=== PATIENT | male | born 1935 | race Hispanic/Latino ===

== ENCOUNTER 2018-03-29 06:50 | Day surgery (SDC) | payer MEDICARE ==
[2017-07-19 09:20] VITALS: BMI 27.3
[2018-03-29 07:56] LABS: BASO # 0.05 K/mm3 (0.0-2.0); BASO % 0.8 % (0.0-3.0); EOS # 0.4 (0.0-0.7); EOS % 7.2 % (1.5-5.0); GRAN # 3.6 (1.4-6.5); GRAN % 60.1 % (50.0-68.0); HEMOGLOBIN 11.7 g/dL (14.0-18.0); LYMPH # 1.4 (1.2-3.4); LYMPH % 22.9 % (22.0-35.0); MEAN CELL VOLUME 89.4 fl (80.0-105.0); MEAN CORPUSCULAR HGB CONC 34.7 g/dl (31.0-37.0); MEAN PLATELET VOLUME 9.7 fl (7.0-11.0); MONO # 0.5 (0.1-0.6); RBC 3.77 10^6/uL (3.5-6.1); RED CELL DISTRIBUTION WIDTH 12.9 % (11.5-14.5)
[2018-03-29 08:09] LABS: BLOOD UREA NITROGEN 17 mg/dL (7-21); CALCIUM 9.5 mg/dL (8.4-10.5); GFR AFRICAN-AMERICAN > 60; GFR NON-AFRICAN AMERICAN > 60
[2018-03-29 08:21] LABS: INR 1.16 (0.93-1.08); PARTIAL THROMBOPLASTIN TIME 27.9 Seconds (25.1-36.5); PROTHROMBIN TIME 13.4 SECONDS (9.4-12.5)
[2018-03-29] MEDS ORDERED: Midazolam 2 MG/2 ML VIAL ONE (09:06)
[2018-03-29] MEDS ORDERED: Lidocaine 1% Inj (20ml) ONE (09:06)
[2018-03-29] MEDS ORDERED: Oxycodone/Acetaminophen 5/325 mg Tab PO PRN (09:45)
[2018-03-29] MEDS ORDERED: Sodium Chloride 0.45% 1,000 ML IV SCH (09:45)
[2018-03-29 10:36] VITALS: BP 127/56; PULSE 53; RESP 18; TEMP 98; O2SAT 97
--- NOTE | 2018-03-29 17:45 | CT ---
PROCEDURE: CT guided liver biopsy. HISTORY: Lung carcinoma. Previous left renal cell carcinoma resection. Numerous bilateral liver lesions. Evaluate for malignancy. PHYSICIAN(S): Daniel Hemran MD. TECHNIQUE: The relative risks and indications of the procedure were explained to the patient and consent obtained. The patient was placed supine on the CT scanner and preliminary images through the liver obtained. Conscious sedation and monitoring were provided throughout the procedure by a nurse. There are multiple small christal seen low-attenuation masses in both lobes liver.. A right lateral approach was selected and the area prepped and draped in the usual sterile fashion. 1% Xylocaine was used to anesthetize the skin and soft tissues. A 17-gauge guiding needle was advanced into the medial segment of the left lobe of the liver.. Its position was confirmed with CT. Using coaxial technique, multiple core biopsies were obtained. The postprocedure images show no evidence of significant hemorrhage. IMPRESSION: 1. CT-guided liver biopsy as described above.
== END 2018-03-29 13:00 | disposition home or self-care (01) ==
LOC: SDS 06:50
PROVIDERS: ATTEND Radiology Vascular & Interventional Radiology
DX: C78.7 Secondary malignant neoplasm of liver and intrahepatic bile duct (principal); C34.90 Malignant neoplasm of unspecified part of unspecified bronchus or lung; Z85.528 Personal history of other malignant neoplasm of kidney; Z90.5 Acquired absence of kidney
CPT/HCPCS: 36415; 47000; 77012; 80048; 85025; 85610; 85730; 88307; 99152; J2250; J2405; J3010; J7030

== ENCOUNTER 2018-07-23 14:42 | Inpatient (IN) | payer MEDICARE ==
[2018-07-23 14:42] VITALS: BMI 27.3
[2018-07-23] MEDS ORDERED: Sodium Chloride 0.9% 1,000 ML IV STA (15:21)
--- NOTE | 2018-07-23 15:21 | ED PDOC ---
Arrival/HPI - General Chief Complaint: GI Problem Time Seen by Provider: 07/23/18 15:04 Historian: Patient - History of Present Illness Narrative History of Present Illness (Text): 07/23/18 15:16 82 year old male, whose past medical history includes lung cancer (currently undergoing chemoradiation), who presents to the Emergency Department complaining of decreased appetite and diarrhea every hour x 5 days. Patient states he rec eived a higher dosage chemotherapy 5 days ago through his oncologist Dr. Zeng. Patient reports having mild abdominal pain "before I have to go to bathroom" than it improved after diarrhea. He denies bloody stools. Reports feeling "shaky" at times this morning. Denies chest pain or shortness of breath. Denies pleuritic pain. Denies hemoptysis. Denies dysuria or frequency. Denies any recent antibiotic usage. Time/Duration: < week Symptom Onset: Gradual Symptom Course: Unchanged Activities at Onset: Light Context: Home Past Medical History - Provider Review Nursing Documentation Reviewed: Yes - Cardiac Hx Hypertension: Yes Hx Pacemaker: No - Pulmonary Hx Respiratory Disorders: Yes - Neurological Hx Neurological Disorder: No - HEENT Hx Cataracts: Yes (BILAT IOLI) - Renal Other/Comment: RENAL TUMOR LEFT - Endocrine/Metabolic Hx Endocrine Disorders: No - Hematological/Oncological Hx Cancer: Yes (Kidney and lung) Hx Chemotherapy: Yes - Integumentary Hx Dermatological Disorder: No - Musculoskeletal/Rheumatological Hx Musculoskeletal Disorders: No - Gastrointestinal Hx Gastrointestinal Disorders: Yes Hx Gall Bladder Disease: Yes Other/Comment: SMALL BOWEL OBSTRUCTION/NO SURGERY NEEDED - Genitourinary/Gynecological Hx Genitourinary Disorders: Yes Hx Prostate Problems: Yes (BPH) - Psychiatric Hx Emotional Abuse: No Hx Physical Abuse: No Hx Substance Use: No - Surgical History Other/Comment: Left leg Sx. Left kidney tumor removal - Anesthesia Hx Anesthesia Reactions: No Hx Malignant Hyperthermia: No - Suicidal Assessment Feels Threatened In Home Enviroment: No Family/Social History - Physician Review Nursing Documentation Reviewed: Yes Family/Social History: Unknown Family HX Smoking Status: Never Smoked Hx Alcohol Use: Yes (GLASS OF RED WINE WITH DINNER) Hx Substance Use: No Allergies/Home Meds Allergies/Adverse Reactions: Allergies No Known Allergies Allergy (Verified 07/23/18 14:56) Home Medications: Home Meds Medication Instructions Recorded Confirmed Furosemide [Lasix] 20 mg PO DAILY 07/19/17 07/23/18 Labetalol [Trandate] 100 mg PO BID 07/19/17 07/23/18 Simvastatin 10 tab PO HS 07/19/17 07/23/18 Tamsulosin HCl [Flomax] 0.4 mg PO DAILY 07/19/17 07/23/18 Timolol 0.5% Ophth [Timoptic 0.5% 1 drop OU DAILY 07/19/17 07/23/18 Ophth Soln] amLODIPine [Norvasc] 5 mg PO HS 07/19/17 07/23/18 Finasteride 1 mg PO DAILY 01/31/18 07/23/18 [place]-3 Fatty Acids/Fish Oil 1 cap PO BID 01/31/18 07/23/18 [[place] 3 Fish Oil Softgel] hydrALAZINE [Apresoline] 50 mg PO TID 01/31/18 07/23/18 Review of Systems - Review of Systems Constitutional: Fatigue, Other ("shaking") Eyes: absent: Vision Changes ENT: absent: Hearing Changes, Sore Throat, Rhinorrhea Respiratory: absent: SOB Cardiovascular: absent: Chest Pain, Palpitations, Calf Pain, SKEL[place] Gastrointestinal: Abdominal Pain, Diarrhea, Nausea, Appetite Changes. absent: Constipation, Hematochezia, Hematemesis Genitourinary Male: absent: Frequency, Hematuria Musculoskeletal: absent: Back Pain Skin: absent: Rash Neurological: absent: Headache, Dizziness Hemo/Lymphatic: absent: Easy Bleeding Psychiatric: absent: Depression Physical Exam - Physical Exam Narrative Physical Exam (Text): 07/23/18 15:21 Head: Atraumatic. Normocephalic. Eyes: PERRL. EOMI. Conjunctivae are not pale. Sclera anicteric. ENT: Mucous membranes are dry. Oropharynx is clear and symmetric. Neck: Supple. Full ROM. No JVD. No lymphadenopathy. Cardiovascular: Regular rate. Regular rhythm. Pulmonary/Chest: No evidence of respiratory distress. No rhonchit or rales. No accessory muscle usage. Abdominal: Soft and non-distended. Very mild periumbilical pain. No rebound, guarding, or rigidity. No organomegaly. Good bowel sounds. Rectal: no gross bleeding or melena described Back: No CVA tenderness. Extremities: No edema. No cyanosis. No calf tenderness. Skin: Skin is pale. Neurological: Alert, awake, and oriented. No meningeal signs. Motor and sensory exam intact. Psychiatric: Good eye contact. Normal interaction, affect, and behavior. Vital Signs Reviewed: Yes Vital Signs Temp Pulse Resp BP Pulse Ox 07/23/18 14:52 98.5 F 90 18 118/87 97 Temperature: Afebrile Blood Pressure: Normal Pulse: Regular Respiratory Rate: Normal Appearance: Positive for: Well-Appearing, Non-Toxic, Comfortable Pain Distress: Mild Mental Status: Positive for: Alert and Oriented X 3 Medical Decision Making ED Course and Treatment: 07/23/18 15:22 Impression: 82 year old male presents to the Emergency Department complaining of diarrhea, decreased appetite, shaking. Differential Diagnosis included but are not limited to: chemotherapy side effect, colitis, dehydration, sepsis Plan: -- UA -- Labs -- Pepcid -- Sodium Chloride -- Reassess and disposition Progress Notes: Patient's history reviewed with patient and family. Patient recently had adjustment "stronger dose" of chemotherapy 5 days ago and since then has had persistent diarrhea with decreased appetite. No vomiting. No chest pain or shortness of breath. States mild abdominal pain that resolved after bowel movements. Currently he is afebrile in ED. Not hypotensive or tachycardic. IV fluids given. Serial exams reveals NO rebound or guarding. Patient developed shaking while in the ED. Vitals reveal NO fever via rectal temp, no tachycardia or hypotension. Abdomen is soft with no rebound or guarding. Cultures obtained. lactate obtained, unremarkable. Patient on re-exam no longer shaking, is comfortable. UA with WBC ? uti will initiate antibiotics. Case d/w Dr. Zeng, will serve as literacy consultant for patient and patient will be admitted for observation, serial exams. As no significant pain currently will continue serial exams. I reviewed case with oncall physician Dr. Radha Collins, who accepts patient to his service. Family and patient updated with treatment plan. - EKG Interpretation EKG Interpretation (Text): 07/23/18 18:32 EKG at 1545 normal sinus rhythm rate of [address] abnormality, prolonged qt Interpreted by ED Physician: Yes Type: 12 lead EKG - Scribe Statement The provider has reviewed the documentation as recorded by the Scribe Serenity Chapa All medical record entries made by the Scribe were at my direction and personally dictated by me. I have reviewed the chart and agree that the record accurately reflects my personal performance of the history, physical exam, medical decision making, and the department course for this patient. I have also personally directed, reviewed, and agree with the discharge instructions and disposition. Disposition/Present on Arrival - Present on Arrival Any Indicators Present on Arrival: No History of DVT/PE: No History of Uncontrolled Diabetes: No Urinary Catheter: No History of Decub. Ulcer: No History Surgical Site Infection Following: None - Disposition Have Diagnosis and Disposition been Completed?: Yes Diagnosis: Diarrhea, Dehydration, Urinary tract infection Disposition: HOME/ ROUTINE Disposition Time: 18:00 Patient Plan: Admission Condition: FAIR Forms: [employer] (Nepali)
[2018-07-23 15:41] LABS: BASO # 0.01 K/mm3 (0.0-2.0); BASO % 0.5 % (0.0-3.0); EOS # 0.1 (0.0-0.7); EOS % 2.3 % (1.5-5.0); GRAN # 1.56 (1.4-6.5); GRAN % 71.8 % (50.0-68.0); HEMOGLOBIN 9.8 g/dL (14.0-18.0); LYMPH # 0.4 (1.2-3.4); LYMPH % 16.6 % (22.0-35.0); MEAN CELL VOLUME 98.9 fl (80.0-105.0); MEAN CORPUSCULAR HEMOGLOBIN 35.8 pg (25.0-35.0); MEAN CORPUSCULAR HGB CONC 36.2 g/dl (31.0-37.0); MEAN PLATELET VOLUME 10.3 fl (7.0-11.0); MONO # 0.2 (0.1-0.6); MONO % 8.8 % (1.0-6.0); RBC 2.74 10^6/uL (3.5-6.1); RED CELL DISTRIBUTION WIDTH 15.8 % (11.5-14.5)
[2018-07-23 15:46] LABS: ALB/GLOB RATIO 1.1 (1.1-1.8); ALT/SGPT 38 U/L (7-56); AMYLASE 75 U/L (35-125); AST/SGOT 55 U/L (17-59); BLOOD UREA NITROGEN 21 mg/dL (7-21); CALCIUM 8.8 mg/dL (8.4-10.5); GFR NON-AFRICAN AMERICAN > 60; LIPASE 42 U/L (23-300)
[2018-07-23 15:48] LABS: INR 1.18; PARTIAL THROMBOPLASTIN TIME 28.2 Seconds (25.1-36.5); PROTHROMBIN TIME 13.5 SECONDS (9.4-12.5)
[2018-07-23 15:59] LABS: WHITE BLOOD COUNT 2.2 10^3/ul (4.5-11.0)
[2018-07-23 16:48] LABS: VENOUS BLOOD GAS BASE EXCESS 0.1 mmol/L (0.0-2.0); VENOUS BLOOD GAS PO2 120 mm/Hg (30-55); VENOUS BLOOD PH 7.44 (7.32-7.43)
[2018-07-23 17:28] LABS: URINE BILIRUBIN SMALL (NEGATIVE); URINE BLOOD NEGATIVE (NEGATIVE); URINE GLUCOSE (UA) NEGATIVE (NEGATIVE); URINE LEUKOCYTE ESTERASE TRACE Leu/uL (NEGATIVE); URINE PROTEIN 30 mg/dL (<30 mg/dL); URINE UROBILINOGEN 0.2 E.U./dL (<1 E.U./dL)
[2018-07-23 17:29] LABS: URINE APPEARANCE CLEAR (CLEAR); URINE COLOR YELLOW (YELLOW)
[2018-07-23 17:44] LABS: URINE AMORPHOUS SEDIMENT FEW; URINE BACTERIA MANY (NEG); URINE EPITHELIAL CELLS 0 - 2 /hpf (0-5); URINE FINE GRANULAR CAST 0 - 2 /hpf (0-2); URINE RBC 0 - 2 /hpf (0-2)
[2018-07-23] MEDS ORDERED: Sodium Chloride 0.9% 1,000 ML IV SCH (17:45)
[2018-07-23] MEDS ORDERED: cefTRIAXone 1 gm 1 GM/100 ML BAG IVPB STA (17:46)
[2018-07-23] MEDS ORDERED: Bismuth Subsalicylate 262 mg/15 ml Sus (240 ml) PO PRN (19:43)
[2018-07-23] MEDS: Sodium Chloride 0.45% 1,000 ML IV SCH (21:58)
[2018-07-23] MEDS: Cefepime 1gm in NS 100ml 1 GM/100 ML BAG IVPB SCH (22:11)
[2018-07-23] MEDS: metroNIDAZOLE IV 500 mg/100 ml 500 MG/100 ML BAG IVPB SCH (22:11)
--- NOTE | 2018-07-24 05:45 | HP ---
HISTORY OF PRESENT ILLNESS: I was called down to the emergency room to admit this young man to the hospital. He is an 82-year-old white male who has a past medical history that includes lung cancer, currently undergoing chemoradiation with Dr. Zeng. He has a decreased appetite. He had diarrhea for five days. He is on high dose of chemotherapy five days ago and now he is having mild abdominal pain. He does report he has had diarrhea. No blood in the stools, feels shaky at times, no pleuritic pain, no coughing up blood, no shortness of breath despite the recent lung cancer history. He has hypotension. He has had respiratory disorders, bilateral cataracts, renal tumor on the left side, kidney and lung cancer with chemotherapy. He has gallbladder disease, small bowel obstruction. No surgery needed at that time. He has BPH. He has had left leg surgery, left kidney tumor removal. FAMILY HISTORY: Unknown. SOCIAL HISTORY: No smoking. He drinks a glass of wine with dinner. No substance abuse. ALLERGIES: NO KNOWN DRUG ALLERGIES. MEDICATIONS: On Lasix, Trandate, simvastatin, Flomax, Timoptic, Norvasc, finasteride, omega-3 fatty acids, and Apresoline. REVIEW OF SYSTEMS: He is fatigued, shaky. No acute vision or hearing changes. No sore throat or rhinorrhea. No shortness of breath. No chest pain, palpitations, calf pain, or dyspnea on exertion. He does have abdominal pains. He is having diarrhea and also nausea. Appetite changes, appetite. No constipation. No problems urinating. No back pain. No skin rashes or ulcers appreciated. No lightheadedness or dizziness. No easy bleeding. No depression or anxiety. PHYSICAL EXAMINATION: VITAL SIGNS: He has 98.5 temperature, 90 pulse, 18 respiratory rate, 118/87 blood pressure, 97% O2 sat. HEENT: His head is atraumatic and normocephalic. Extraocular muscles are intact. Pupils reactive to light. Mucous membranes are dry. NECK: Supple. No JVD. Good range of motion, no lymphadenopathy palpated. CARDIOPULMONARY: Heart is regular rate. LUNGS: Decreased breath sounds with no wheezes, rhonchi, or rales. ABDOMEN: Soft and nontender with positive bowel sounds. Mild midepigastric tenderness. No guarding, no rebound, no CVA tenderness. He does have bowel sounds. They did a rectal in the emergency room. No gross rectal bleeding or melena. EXTREMITIES: No edema of extremities. He moves all 4 extremities. SKIN: Pale. NEUROLOGIC: Alert and oriented x3. No meningeal signs. Good eye contact. No anxiety or depression. Thyroid midline. No palpable appreciable lymphadenopathy. LABORATORY DATA: He had multiple tests that were done. His urine was positive with many bacteria. We started him on Rocephin in the emergency room. Sodium 139, potassium is 4.2, BUN 21, creatinine 1.1, GFR is greater than 60, sugar is 137. Calcium is 8.8, magnesium 1.9, total bili is 0.9, AST is 55, ALT is 38, alk phos 92, total protein is 7.6, albumin is 4, globulin 3.6. Amylase 75, lipase 42. Blood gas, lactate was 1.2. INR 1.18. White count 2.2 on chemoradiation for cancer, 9.8 hemoglobin, 27.1 hematocrit with 71,000 platelets. ASSESSMENT: Urinary tract infection, diarrhea, shaking chills. PLAN: Stop IV FLUIDS, put him back on his medications, give insulin for his diarrhea, some Kaopectate and maybe some Protonix for his tummy and some oxygen. He will have consults with his oncologist, GI and Infectious Disease. He is here for diarrhea for five days, UTI, history of lung cancer, kidney cancer on chemoradiation. Wesly Collins DO MTDD
[2018-07-24] MEDS: metroNIDAZOLE IV 500 mg/100 ml 500 MG/100 ML BAG IVPB SCH ×3 (06:15→22:12)
[2018-07-24] MEDS: Cefepime 1gm in NS 100ml 1 GM/100 ML BAG IVPB SCH ×3 (06:16→22:12)
[2018-07-24 08:06] LABS: HEMOGLOBIN 8.6 g/dL (14.0-18.0); MEAN CELL VOLUME 99.2 fl (80.0-105.0); MEAN CORPUSCULAR HEMOGLOBIN 35.5 pg (25.0-35.0); MEAN CORPUSCULAR HGB CONC 35.8 g/dl (31.0-37.0); MEAN PLATELET VOLUME 10.4 fl (7.0-11.0); PLATELET COUNT 56 10^3/uL (120.0-450.0); RBC 2.42 10^6/uL (3.5-6.1); RED CELL DISTRIBUTION WIDTH 15.4 % (11.5-14.5)
--- NOTE | 2018-07-24 08:08 | CP.PCM.CON ---
<JasanjanaJose Angel - Last Filed: 07/24/18 09:17> History of Present Illness - History of Present Illness History of Present Illness: PGY-4 GI Fellow Consult Note Pt is an 82 yo WM with Metastatic Lung CA (to bones and liver, on chemo and XRT), BPH, HTN presenting with complaint of diarrhea. He states on 07/19 symtoms started with loose watery brown stools nearly every hour. He reports an associated crampy bilateral lower abdominal pain with bowel movements. He reports symptoms independent of PO intake with frequent nocturnal awakenings. He states that on 07/17 he was apple picking and on 07/18 was his last dose of chemo, which he said his oncologist gave him a "stronger" dose than before. Last XRT was a few weeks ago. He reports some nausea but denies any melena (though stools were dark after trying pepto-bismol), hematochezia, emesis, f/c, recent travel, sick contacts, antibiotic use, change in diet nor eating raw foods. States that he has lost about 10-15 lbs ever since starting chemo with decreased appetite. States he had a Colonscopy about 5 years ago in [place] with some polyps reported and thinks he was told to repeat in 2018. No prior EGD. 12 point ROS negative other than stated above MHx: See above SurgHx: Broken leg repair Meds: Reviewed in [facility] FamHx: Denied h/o GI probs SocHx: Wine with dinner, neg tob/illicits All: NKDA Past Patient History - Past Medical History & Family History Past Medical History?: Yes - Past Social History Smoking Status: Never Smoked - CARDIAC Hx Hypertension: Yes Hx Pacemaker: No - PULMONARY Hx Respiratory Disorders: Yes - NEUROLOGICAL Hx Neurological Disorder: No - HEENT Hx Cataracts: Yes (BILAT IOLI) - RENAL Other/Comment: RENAL TUMOR LEFT - ENDOCRINE/METABOLIC Hx Endocrine Disorders: No - HEMATOLOGICAL/ONCOLOGICAL Hx Cancer: Yes (Kidney and lung) Hx Chemotherapy: Yes - INTEGUMENTARY Hx Dermatological Problems: No - MUSCULOSKELETAL/RHEUMATOLOGICAL Hx Falls: No - GASTROINTESTINAL Hx Gastrointestinal Disorders: Yes Hx Gall Bladder Disease: Yes Other/Comment: SMALL BOWEL OBSTRUCTION/NO SURGERY NEEDED - GENITOURINARY/GYNECOLOGICAL Hx Genitourinary Disorders: Yes Hx Prostate Problems: Yes (BPH) - PSYCHIATRIC Hx Emotional Abuse: No Hx Physical Abuse: No Hx Substance Use: No - SURGICAL HISTORY Other/Comment: Left leg Sx. Left kidney tumor removal - ANESTHESIA Hx Anesthesia Reactions: No Hx Malignant Hyperthermia: No Meds Allergies/Adverse Reactions: Allergies Allergy/AdvReac Type Severity Reaction Status Date / Time No Known Allergies Allergy Verified 07/23/18 14:56 - Medications Medications: Current Medications Amlodipine Besylate (Norvasc) 5 mg PO HS [facility] Last Admin: 07/23/18 21:59 Dose: 5 mg Atorvastatin Calcium (Lipitor) 10 mg PO DIN [facility] Bismuth Subsalicylate (Pepto-Bismol) 262 mg PO Q6H PRN PRN Reason: Diarrhea Furosemide (Lasix) 20 mg PO DAILY [facility] Hydralazine HCl (Apresoline) 50 mg PO TID [facility] Sodium Chloride (Sodium Chloride 0.45%) 1,000 mls @ 60 mls/hr IV .[id number] [facility] Last Admin: 07/23/18 21:58 Dose: 60 mls/hr Metronidazole (Flagyl) 500 mg in 100 mls @ 100 mls/hr IVPB Q8 [facility]; Protocol Stop: 07/31/18 22:01 Last Admin: 07/24/18 06:15 Dose: 100 mls/hr Cefepime HCl (Maxipime 1gm) 1 gm in 100 mls @ 25 mls/hr IVPB Q8 [facility]; Protocol Stop: 08/01/18 22:01 Last Admin: 07/24/18 06:16 Dose: 25 mls/hr Labetalol HCl (Trandate) 100 mg PO BID [facility] Non-Formulary Medication (Finasteride [Finasteride]) 1 mg PO DAILY [facility] Pantoprazole Sodium (Protonix Inj) 40 mg IVP DAILY [facility] Tamsulosin HCl (Flomax) 0.4 mg PO DAILY [facility] Timolol Maleate (Timoptic 0.5% Ophth Soln) 1 drop OU DAILY [facility] Physical Exam - Constitutional Appears: Well, Non-toxic, No Acute Distress - Head Exam Head Exam: ATRAUMATIC, NORMAL INSPECTION - Eye Exam Eye Exam: EOMI, Normal appearance. absent: Conjunctival injection, Scleral icterus - ENT Exam ENT Exam: Mucous Membranes Dry, Normal External Ear Exam. absent: Mucous Membranes Moist - Respiratory Exam Respiratory Exam: Clear to Auscultation Bilateral, NORMAL BREATHING PATTERN. absent: Accessory Muscle Use, Respiratory Distress - Cardiovascular Exam Cardiovascular Exam: REGULAR RHYTHM, RRR. absent: Bradycardia, Tachycardia - GI/Abdominal Exam GI & Abdominal Exam: Normal Bowel Sounds, Soft, Tenderness (mildly ttp in lower quadrants without guarding). absent: Bruit, Diminished Bowel Sounds, Distended, Firm, Guarding, Hernia, Organomegaly, Pulsatile Mass - Rectal Exam Rectal Exam: Deferred - Extremities Exam Extremities exam: Positive for: normal inspection. Negative for: pedal edema - Neurological Exam Neurological exam: Alert, CN II-XII Intact, Oriented x3 - Psychiatric Exam Psychiatric exam: Normal Affect, Normal Mood - Skin Skin Exam: Normal Color, Warm Results - Vital Signs Recent Vital Signs: Last Vital Signs Temp 99.1 F 07/23/18 21:41 Pulse 82 07/23/18 21:59 Resp 20 07/23/18 22:36 BP 147/79 07/23/18 21:59 Pulse Ox 98 07/23/18 21:41 - Labs Result Diagrams: 07/24/18 07:30 07/24/18 07:30 Labs: Laboratory Results - last 24 hr 07/23/18 07/23/18 07/23/18 15:25 15:25 15:25 WBC 2.2 L* D RBC 2.74 L Hgb 9.8 L Hct 27.1 L MCV 98.9 D MCH 35.8 H MCHC 36.2 RDW 15.8 H Plt Count 71 L MPV 10.3 Gran % 71.8 H Lymph % (Auto) 16.6 L [place] % (Auto) 8.8 H Eos % (Auto) 2.3 Baso % (Auto) 0.5 Gran # 1.56 Lymph # (Auto) 0.4 L [place] # (Auto) 0.2 Eos # (Auto) 0.1 Baso # (Auto) 0.01 PT 13.5 H INR 1.18 APTT 28.2 pO2 VBG pH VBG pCO2 VBG HCO3 VBG Total CO2 VBG O2 Sat (Calc) VBG Base Excess VBG Potassium Glucose Lactate FiO2 Sodium 139 Potassium 4.2 Chloride 106 Carbon Dioxide 26 Anion Gap 11 BUN 21 Creatinine 1.1 Est GFR ( Amer) > 60 Est GFR (Non-Af Amer) > 60 Random Glucose 137 H Calcium 8.8 Magnesium 1.9 Total Bilirubin 0.9 AST 55 ALT 38 Alkaline Phosphatase 92 Total Protein 7.6 Albumin 4.0 Globulin 3.6 Albumin/Globulin Ratio 1.1 Amylase 75 Lipase 42 Venous Blood Potassium Urine Color Urine Appearance Urine pH Ur Specific Mcgrann Urine Protein Urine Glucose (UA) Urine Ketones Urine Blood Urine Nitrate Urine Bilirubin Urine Urobilinogen Ur Leukocyte Esterase Urine RBC Urine WBC Ur Epithelial Cells Amorphous Sediment Urine Bacteria Fine Granular Casts Urine Other 07/23/18 07/23/18 16:31 17:13 WBC RBC Hgb Hct MCV MCH MCHC RDW Plt Count MPV Gran % Lymph % (Auto) [place] % (Auto) Eos % (Auto) Baso % (Auto) Gran # Lymph # (Auto) [place] # (Auto) Eos # (Auto) Baso # (Auto) PT INR APTT pO2 120 H VBG pH 7.44 H VBG pCO2 35.0 L VBG HCO3 23.8 VBG Total CO2 24.9 VBG O2 Sat (Calc) 99.5 H VBG Base Excess 0.1 VBG Potassium 3.3 L Glucose 107 Lactate 1.2 FiO2 21.0 Sodium 137.0 Potassium Chloride 111.0 H Carbon Dioxide Anion Gap BUN Creatinine Est GFR ( Amer) Est GFR (Non-Af Amer) Random Glucose Calcium Magnesium Total Bilirubin AST ALT Alkaline Phosphatase Total Protein Albumin Globulin Albumin/Globulin Ratio Amylase Lipase Venous Blood Potassium 3.3 L Urine Color Yellow Urine Appearance Clear Urine pH 6.0 Ur Specific [place] 1.025 Urine Protein 30 H Urine Glucose (UA) Negative Urine Ketones Negative Urine Blood Negative Urine Nitrate Negative Urine Bilirubin Small H Urine Urobilinogen 0.2 Ur Leukocyte Esterase Trace H Urine RBC 0 - 2 Urine WBC 2 - 5 Ur Epithelial Cells 0 - 2 Amorphous Sediment Few Urine Bacteria Many Fine Granular Casts 0 - 2 Urine Other Uyeast Assessment & Plan - Assessment and Plan (Free Text) Assessment: 82 yo WM with Stage IV Lung CA with mets to bone and liver (on chemo and XRT) presenting with diarrhea. # Acute Diarrhea: Onset < 30 days ago. Given immunocompromised status (latest WBC 0.6), of most concern would be infectious causes. ID following and managing Abx. Chemo induced diarrhea also on differential, should r/o infectious causes first. # H/o colon polyps: In 2012 at [place] per patient. Told to repeat CSPY 2018. Plan: - F/u Cdiff, Stool Cx, O&P - ID following, on Cefepime and Metronidazole - F/u BCx, though done after antibiotics started - Supportive care - Can do full liquid diet, ADAT - Would hold off DC until stool studies back given neutropenic status - Outpatient surveillance Colonoscopy Pt seen and examined with Dr. Dickey. Please see attestation for further recs/changes. <Nathen Dickey - Last Filed: 07/24/18 16:22> Meds - Medications Medications: Current Medications Amlodipine Besylate (Norvasc) 5 mg PO HS [facility] Last Admin: 07/23/18 21:59 Dose: 5 mg Atorvastatin Calcium (Lipitor) 10 mg PO DIN [facility] Bismuth Subsalicylate (Pepto-Bismol) 262 mg PO Q6H PRN PRN Reason: Diarrhea Furosemide (Lasix) 20 mg PO DAILY [facility] Last Admin: 07/24/18 10:04 Dose: 20 mg Hydralazine HCl (Apresoline) 50 mg PO TID [facility] Last Admin: 07/24/18 13:31 Dose: 50 mg Sodium Chloride (Sodium Chloride 0.45%) 1,000 mls @ 60 mls/hr IV .[id number] [facility] Last Admin: 07/23/18 21:58 Dose: 60 mls/hr Metronidazole (Flagyl) 500 mg in 100 mls @ 100 mls/hr IVPB Q8 [facility]; Protocol Stop: 07/31/18 22:01 Last Admin: 07/24/18 13:31 Dose: 100 mls/hr Cefepime HCl (Maxipime 1gm) 1 gm in 100 mls @ 25 mls/hr IVPB Q8 [facility]; Protocol Stop: 08/01/18 22:01 Last Admin: 07/24/18 14:32 Dose: 25 mls/hr Labetalol HCl (Trandate) 100 mg PO BID [facility] Last Admin: 07/24/18 10:04 Dose: 100 mg Non-Formulary Medication (Finasteride [Finasteride]) 1 mg PO DAILY [facility] Last Admin: 07/24/18 13:31 Dose: Not Given Pantoprazole Sodium (Protonix Inj) 40 mg IVP DAILY [facility] Last Admin: 07/24/18 10:04 Dose: 40 mg Tamsulosin HCl (Flomax) 0.4 mg PO DAILY [facility] Last Admin: 07/24/18 10:04 Dose: 0.4 mg Timolol Maleate (Timoptic 0.5% Oph Soln) 1 drop OU DAILY [facility] Last Admin: 07/24/18 10:52 Dose: 1 drop Results - Vital Signs Recent Vital Signs: Last Vital Signs Temp 98.5 F 07/24/18 08:10 Pulse 68 07/24/18 13:31 Resp 18 07/24/18 08:10 BP 136/60 07/24/18 13:31 Pulse Ox 98 07/24/18 08:10 - Labs Result Diagrams: 07/24/18 07:30 07/24/18 07:30 Labs: Laboratory Results - last 24 hr 07/23/18 07/23/18 07/24/18 16:31 17:13 07:30 WBC 0.6 L* D RBC 2.42 L Hgb 8.6 L Hct 24.0 L MCV 99.2 MCH 35.5 H MCHC 35.8 RDW 15.4 H Plt Count 56 L MPV 10.4 Gran % 23.3 L Lymph % (Auto) 48.3 H [place] % (Auto) 21.7 H Eos % (Auto) 5.0 Baso % (Auto) 1.7 Gran # 0.14 L Lymph # (Auto) 0.3 L [place] # (Auto) 0.1 Eos # (Auto) 0.0 Baso # (Auto) 0.01 Neutrophils % (Manual) 20 L Band Neutrophils % 8 H Lymphocytes % (Manual) 58 H Monocytes % (Manual) 12 H Basophils % (Manual) 2 H Platelet Evaluation Low pO2 120 H VBG pH 7.44 H VBG pCO2 35.0 L VBG HCO3 23.8 VBG Total CO2 24.9 VBG O2 Sat (Calc) 99.5 H VBG Base Excess 0.1 VBG Potassium 3.3 L Sodium 137.0 Chloride 111.0 H Glucose 107 Lactate 1.2 FiO2 21.0 Potassium Carbon Dioxide Anion Gap BUN Creatinine Est GFR ( Amer) Est GFR (Non-Af Amer) Random Glucose Calcium Total Bilirubin AST ALT Alkaline Phosphatase Total Protein Albumin Globulin Albumin/Globulin Ratio Venous Blood Potassium 3.3 L Urine Color Yellow Urine Appearance Clear Urine pH 6.0 Ur Specific [place]ann 1.025 Urine Protein 30 H Urine Glucose (UA) Negative Urine Ketones Negative Urine Blood Negative Urine Nitrate Negative Urine Bilirubin Small H Urine Urobilinogen 0.2 Ur Leukocyte Esterase Trace H Urine RBC 0 - 2 Urine WBC 2 - 5 Ur Epithelial Cells 0 - 2 Amorphous Sediment Few Urine Bacteria Many Fine Granular Casts 0 - 2 Urine Other [facility]yeast 07/24/18 07:30 WBC RBC Hgb Hct MCV MCH MCHC RDW Plt Count MPV Gran % Lymph % (Auto) [place] % (Auto) Eos % (Auto) Baso % (Auto) Gran # Lymph # (Auto) [place] # (Auto) Eos # (Auto) Baso # (Auto) Neutrophils % (Manual) Band Neutrophils % Lymphocytes % (Manual) Monocytes % (Manual) Basophils % (Manual) Platelet Evaluation pO2 VBG pH VBG pCO2 VBG HCO3 VBG Total CO2 VBG O2 Sat (Calc) VBG Base Excess VBG Potassium Sodium 138 Chloride 106 Glucose Lactate FiO2 Potassium 3.4 L Carbon Dioxide 23 Anion Gap 13 BUN 16 Creatinine 0.9 Est GFR ( Amer) > 60 Est GFR (Non-Af Amer) > 60 Random Glucose 110 Calcium 8.3 L Total Bilirubin 0.9 AST 48 ALT 46 Alkaline Phosphatase 91 Total Protein 6.9 Albumin 3.5 Globulin 3.4 Albumin/Globulin Ratio 1.0 L Venous Blood Potassium Urine Color Urine Appearance Urine pH Ur Specific Mcgrann Urine Protein Urine Glucose (UA) Urine Ketones Urine Blood Urine Nitrate Urine Bilirubin Urine Urobilinogen Ur Leukocyte Esterase Urine RBC Urine WBC Ur Epithelial Cells Amorphous Sediment Urine Bacteria Fine Granular Casts Urine Other Attending/Attestation - Attestation I have personally seen and examined this patient.: Yes I have fully participated in the care of the patient.: Yes I have reviewed all pertinent clinical information: Yes Notes (Text): 07/24/18 16:17 I have seen and examined patient with GI fellow. Agree with above documentation with the following additions. In brief, this is an 82 year old male with history of stage IV lung cancer on chemotherapy, BPH, HTN, who presents to hospital with complaint of progressive diarrhea and fatigue which started 5 days ago. He reports a recent increase in dosage of chemotherapy regimen, being followed by Dr. Zeng. He also describes worsening symptoms following consumption of apples from an orchard. He claims to have watery diarrhea episodes nearly every hour which have caused him to develop severe fatigue. He denies abdominal pain, nausea, vomiting, rectal bleeding, fever/chills. He does report a nearly 10 pound weight loss since beginning chemotherapy along with loss of taste/appetite. He had a colonoscopy 5 years ago which showed "polyps" as per patient. Stage IV lung cancer on chemotherapy BPH HTN Diarrhea, persistent unexplained, possibly chemotherapy induced Neutropenia - Given clinical improvement in hospital, would advance diet slowly as tolerated - Obtain stool studies (culture, c-difficile, giardia, cyclospora, crypto) - Continue with antibiotic therapy/neutropenic precautions as per ID - If patient symptoms persist after 48 hours despite medical management, would consider endoscopic evaluation. Otherwise, will benefit from outpatient surveillance colonoscopy. - Will continue to monitor patient clinical course
[2018-07-24 08:13] LABS: WHITE BLOOD COUNT 0.6 10^3/ul (4.5-11.0)
[2018-07-24 08:15] LABS: ALBUMIN 3.5 g/dL (3.0-4.8); ALT/SGPT 46 U/L (7-56); AST/SGOT 48 U/L (17-59); BLOOD UREA NITROGEN 16 mg/dL (7-21); CALCIUM 8.3 mg/dL (8.4-10.5); GFR NON-AFRICAN AMERICAN > 60
[2018-07-24 08:32] LABS: BASO # 0.01 K/mm3 (0.0-2.0); BASO % 1.7 % (0.0-3.0); GRAN # 0.14 (1.4-6.5); GRAN % 23.3 % (50.0-68.0); LYMPH # 0.3 (1.2-3.4); LYMPH % 48.3 % (22.0-35.0); MONO # 0.1 (0.1-0.6); MONO % 21.7 % (1.0-6.0)
[2018-07-24] MEDS ORDERED: Potassium Chloride 20 mEq ER Tab PO ONE (08:42)
[2018-07-24 09:02] LABS: BAND 8 % (0-2); BASOPHIL 2 % (0.0-1.0); LYMPHOCYTE 58 % (22.0-35.0); MONOCYTE 12 % (1.0-6.0); NEUTROPHIL 20 % (50.0-70.0); PLATELET ESTIMATE LOW (NORMAL)
--- NOTE | 2018-07-24 09:05 | PN ---
DATE: 07/24/2018 SUBJECTIVE: I saw him resting comfortably in bed. He slept fairly well last night. He is in no pain. His diarrhea also let up. MEDICATIONS: He is on IV fluids, Apresoline, finasteride, Flagyl IV., Flomax, Lasix, Lipitor, Maxipime IV, Norvasc, Pepcid, Pepto-Bismol, Protonix, Timoptic and Trandate. PHYSICAL EXAMINATION: VITAL SIGNS: 98.5 temp, 78 pulse, 140/65 blood pressure, 18 respiratory rate, 98% O2 sat on room air. HEENT: His head is atraumatic, normocephalic. He is alert, looking at me, comfortable. Throat is moist. NECK: Supple. HEART: Regular rate. LUNGS: Decreased breath sounds, but clear. ABDOMEN: Soft, nontender. Positive bowel sounds. No guarding, no rebound, no CVA tenderness. EXTREMITIES: Have no edema. He has a urine that showed many bacteria. LABORATORY DATA: He has a 138 sodium; potassium 3.4, I am going to give him some potassium; BUN 16; creatinine 0.9; GFR is greater than 60; sugar is 110; calcium is 8.3; total bili is 0.9; AST is 48; ALT is 46; alk phos 91; total protein 6.9. He has 1.18 INR. His white count wet from 2.2, dropped to 0.6; hemoglobin also dropped to 8.6; platelets of 56. He is pancytopenic. 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 I replace his potassium. I make him isolation. I made him an inpatient. It will take more than 2 days to help him, I believe and the IV antibiotics. We will check his labs tomorrow. Akash Bañuelos who came in with 5 days of diarrhea after chemotherapy and radiation. Wesly Collins DO [facility]
--- NOTE | 2018-07-24 09:21 | RAD ---
Date of service: 07/24/2018 HISTORY: r/o infiltration COMPARISON: No prior. FINDINGS: LUNGS: No infiltrate. Linear scar/atelectasis adjacent to left hilum. PLEURA: No significant pleural effusion identified, no pneumothorax apparent. CARDIOVASCULAR: Normal. OSSEOUS STRUCTURES: No significant abnormalities. VISUALIZED UPPER ABDOMEN: Normal. OTHER FINDINGS: None. IMPRESSION: No active disease.
[2018-07-24] MEDS ORDERED: cefTRIAXone 1 gm 1 GM/100 ML BAG IVPB SCH (10:00)
--- NOTE | 2018-07-24 11:27 | CARD ---
APPROVED REPORT Date of service: 07/23/2018 EKG Measurement Heart [id number] <Conclusion> Normal sinus rhythm Nonspecific ST abnormality
[2018-07-24] MEDS: FINASTERIDE 1 MG PO SCH (13:31)
--- NOTE | 2018-07-24 21:11 | CP.PCM.CON ---
History of Present Illness - History of Present Illness History of Present Illness: 82 year old male with a history of renal cell carcinoma s/p partial nephrectomy 07/2017, stage IV NSCLC (adenocarcinoma) dx 03/2018 on systemic therapy last given about 1 week ago, admitted with diarrhea, dehydration, and pancytopenia. The patient received chemotherapy (docetaxel + Cyramza) Tuesday and notes to diarrhea 2-3 days later. He notes to over 10 liquid bowel movements and notes to feeling weak. He has been unable to tolerate much PO and came to the hospital He is feeling better today but was noted to be pancytopenic with severe neutropenia. He denies fevers and chills. Past medical history: renal cell carcinoma, stage IV NSCLC lung cancer Past surgical history: partial nephrectomy Family history: Denies hematologic and oncologic problems Social history: Former tobacco abuse, denies alcohol, and illicit drug use. Allergies: NKA Review of systems: All remaining review of systems including HEENT, ca rdiovascular, respiratory, gastrointestinal, genitourinary, musculoskeletal, dermatologic, neurologic, and psychiatric are negative unless mentioned in the HPI. Past Patient History - Past Medical History & Family History Past Medical History?: Yes - Past Social History Smoking Status: Never Smoked - CARDIAC Hx Hypertension: Yes Hx Pacemaker: No - PULMONARY Hx Respiratory Disorders: Yes - NEUROLOGICAL Hx Neurological Disorder: No - HEENT Hx Cataracts: Yes (BILAT IOLI) - RENAL Other/Comment: RENAL TUMOR LEFT - ENDOCRINE/METABOLIC Hx Endocrine Disorders: No - HEMATOLOGICAL/ONCOLOGICAL Hx Cancer: Yes (Kidney and lung) Hx Chemotherapy: Yes - INTEGUMENTARY Hx Dermatological Problems: No - MUSCULOSKELETAL/RHEUMATOLOGICAL Hx Falls: No - GASTROINTESTINAL Hx Gastrointestinal Disorders: Yes Hx Gall Bladder Disease: Yes Other/Comment: SMALL BOWEL OBSTRUCTION/NO SURGERY NEEDED - GENITOURINARY/GYNECOLOGICAL Hx Genitourinary Disorders: Yes Hx Prostate Problems: Yes (BPH) - PSYCHIATRIC Hx Emotional Abuse: No Hx Physical Abuse: No Hx Substance Use: No - SURGICAL HISTORY Other/Comment: Left leg Sx. Left kidney tumor removal - ANESTHESIA Hx Anesthesia Reactions: No Hx Malignant Hyperthermia: No Meds Allergies/Adverse Reactions: Allergies Allergy/AdvReac Type Severity Reaction Status Date / Time No Known Allergies Allergy Verified 07/23/18 14:56 - Medications Medications: Current Medications Amlodipine Besylate (Norvasc) 5 mg PO HS [facility] Last Admin: 07/23/18 21:59 Dose: 5 mg Atorvastatin Calcium (Lipitor) 10 mg PO DIN [facility] Last Admin: 07/24/18 18:10 Dose: 10 mg Bismuth Subsalicylate (Pepto-Bismol) 262 mg PO Q6H PRN PRN Reason: Diarrhea Furosemide (Lasix) 20 mg PO DAILY [facility] Last Admin: 07/24/18 10:04 Dose: 20 mg Hydralazine HCl (Apresoline) 50 mg PO TID [facility] Last Admin: 07/24/18 18:10 Dose: 50 mg Sodium Chloride (Sodium Chloride 0.45%) 1,000 mls @ 60 mls/hr IV .[id number] [facility] Last Admin: 07/23/18 21:58 Dose: 60 mls/hr Metronidazole (Flagyl) 500 mg in 100 mls @ 100 mls/hr IVPB Q8 [facility]; Protocol Stop: 07/31/18 22:01 Last Admin: 07/24/18 13:31 Dose: 100 mls/hr Cefepime HCl (Maxipime 1gm) 1 gm in 100 mls @ 25 mls/hr IVPB Q8 [facility]; Protocol Stop: 08/01/18 22:01 Last Admin: 07/24/18 14:32 Dose: 25 mls/hr Labetalol HCl (Trandate) 100 mg PO BID [facility] Last Admin: 07/24/18 18:10 Dose: 100 mg Non-Formulary Medication (Finasteride [Finasteride]) 1 mg PO DAILY [facility] Last Admin: 07/24/18 13:31 Dose: Not Given Pantoprazole Sodium (Protonix Inj) 40 mg IVP DAILY [facility] Last Admin: 07/24/18 10:04 Dose: 40 mg Tamsulosin HCl (Flomax) 0.4 mg PO DAILY [facility] Last Admin: 07/24/18 10:04 Dose: 0.4 mg Timolol Maleate (Timoptic 0.5% Ophth Soln) 1 drop OU DAILY [facility] Last Admin: 07/24/18 10:52 Dose: 1 drop Physical Exam - Head Exam Head Exam: ATRAUMATIC - Eye Exam Eye Exam: Normal appearance - ENT Exam ENT Exam: Mucous Membranes Dry - Respiratory Exam Respiratory Exam: NORMAL BREATHING PATTERN - Cardiovascular Exam Cardiovascular Exam: +S1, +S2 - GI/Abdominal Exam GI & Abdominal Exam: Normal Bowel Sounds - Extremities Exam Extremities exam: Positive for: normal inspection - Neurological Exam Neurological exam: Oriented x3 - Psychiatric Exam Psychiatric exam: Normal Affect, Normal Mood - Skin Skin Exam: Warm Results - Vital Signs Recent Vital Signs: Last Vital Signs Temp 98.3 F 07/24/18 16:36 Pulse 78 07/24/18 18:10 Resp 18 07/24/18 16:36 BP 121/66 07/24/18 18:10 Pulse Ox 98 07/24/18 16:36 - Labs Result Diagrams: 07/24/18 07:30 07/24/18 07:30 Labs: Laboratory Results - last 24 hr 07/24/18 07/24/18 07:30 07:30 WBC 0.6 L* D RBC 2.42 L Hgb 8.6 L Hct 24.0 L MCV 99.2 MCH 35.5 H MCHC 35.8 RDW 15.4 H Plt Count 56 L MPV 10.4 Gran % 23.3 L Lymph % (Auto) 48.3 H [place] % (Auto) 21.7 H Eos % (Auto) 5.0 Baso % (Auto) 1.7 Gran # 0.14 L Lymph # (Auto) 0.3 L [place] # (Auto) 0.1 Eos # (Auto) 0.0 Baso # (Auto) 0.01 Neutrophils % (Manual) 20 L Band Neutrophils % 8 H Lymphocytes % (Manual) 58 H Monocytes % (Manual) 12 H Basophils % (Manual) 2 H Platelet Evaluation Low Sodium 138 Potassium 3.4 L Chloride 106 Carbon Dioxide 23 Anion Gap 13 BUN 16 Creatinine 0.9 Est GFR ( Amer) > 60 Est GFR (Non-Af Amer) > 60 Random Glucose 110 Calcium 8.3 L Total Bilirubin 0.9 AST 48 ALT 46 Alkaline Phosphatase 91 Total Protein 6.9 Albumin 3.5 Globulin 3.4 Albumin/Globulin Ratio 1.0 L Assessment & Plan (1) Pancytopenia Assessment and Plan: secondary to chemotherapy with severe neutropenia on neutropenic precautions will give a dose of GCSF today repeat CBC in AM Status: Acute (2) Dehydration Assessment and Plan: secondary to diarrhea improving on IV fluids Status: Acute (3) Diarrhea Assessment and Plan: likely secondary to chemotherapy on empiric antibiotics, f/u stool studies improving Status: Acute (4) Lung cancer Assessment and Plan: stage IV - lung, liver, and bone metastasis outpatient treatment Thank you for this interesting consult. Status: Acute
[2018-07-25] MEDS: Cefepime 1gm in NS 100ml 1 GM/100 ML BAG IVPB SCH ×2 (05:20→13:55)
[2018-07-25] MEDS: metroNIDAZOLE IV 500 mg/100 ml 500 MG/100 ML BAG IVPB SCH ×2 (05:20→13:54)
[2018-07-25 07:26] LABS: HEMOGLOBIN 8.5 g/dL (14.0-18.0); MEAN CELL VOLUME 98.8 fl (80.0-105.0); MEAN CORPUSCULAR HEMOGLOBIN 34.7 pg (25.0-35.0); MEAN CORPUSCULAR HGB CONC 35.1 g/dl (31.0-37.0); MEAN PLATELET VOLUME 10.1 fl (7.0-11.0); RBC 2.45 10^6/uL (3.5-6.1)
[2018-07-25 07:32] LABS: ALBUMIN 3.3 g/dL (3.0-4.8); ALT/SGPT 44 U/L (7-56); AST/SGOT 51 U/L (17-59); BLOOD UREA NITROGEN 16 mg/dL (7-21); CALCIUM 8.6 mg/dL (8.4-10.5); GFR NON-AFRICAN AMERICAN > 60
[2018-07-25 07:35] LABS: WHITE BLOOD COUNT 0.8 10^3/ul (4.5-11.0)
[2018-07-25 08:30] LABS: BASO # 0.02 K/mm3 (0.0-2.0); BASO % 2.5 % (0.0-3.0); EOS % 3.8 % (1.5-5.0); GRAN # 0.1 (1.4-6.5); GRAN % 12.4 % (50.0-68.0); LYMPH # 0.4 (1.2-3.4); MONO # 0.2 (0.1-0.6); MONO % 26.3 % (1.0-6.0)
--- NOTE | 2018-07-25 08:41 | CON ---
DATE: 07/24/2018 The patient seen in room 366, bed 1. The patient's and sister are at bedside. CHIEF COMPLAINT: Diarrhea times several days. HISTORY OF PRESENT ILLNESS: This is an 82-year-old male with past medical history significant for stage IV lung cancer, adenocarcinoma, who is on chemotherapy. The patient has had hypertension, small bowel obstruction, BPH, also had hyperlipidemia, and patient had renal cancer and had a partial nephrectomy. The patient is on chemotherapy, now is admitted, found to have severe diarrhea and dehydration and neutropenic with low grade fevers. REVIEW OF SYSTEMS: A 12-point review systems is performed. At this time, he did have nausea, vomiting earlier, severe diarrhea, watery; abdominal cramps and low-grade fevers but no chills. No chest pain. No hemoptysis. No dysuria or frequency. PAST MEDICAL HISTORY: Significant for adenocarcinoma, stage IV of the lung cancer, hypertension, renal cell carcinoma, small-bowel obstruction, BPH, hyperlipidemia. PAST SURGICAL HISTORY: Significant for cholecystectomy, colonoscopy, partial nephrectomy and lung surgery. ALLERGIES: THE PATIENT HAS NO KNOWN ALLERGIES. MEDICATIONS: Reviewed, are noted. PHYSICAL EXAMINATION: GENERAL: On exam, he is in bed in no acute distress, however, weak and washed out. VITAL SIGNS: Temperature of 99, blood pressure is 120/60, respiratory rate of 18, a heart rate of 80. HEENT: Unremarkable. NECK: Supple. LUNGS: Decreased breath sounds. HEART: Normal S1, S2. ABDOMEN: Soft, nontender. No rebound or guarding. LABORATORY EXAMINATION: Reveals a white count of 0.6, hemoglobin of 8, platelets of 56,000 and chemistries reveals a BUN of 16, creatinine of 0.9. Urinalysis is noted. Microbiology, C. diff is negative. Blood cultures are negative. ASSESSMENT/PLAN: This is an 82-year-old male with adenocarcinoma, stage IV; status post chemotherapy, lung cancer, hypertension, renal cell cancer with, 1. Dehydration. 2. Neutropenia. 3. Severe diarrhea, probably all secondary to chemotherapy. 4. Pancytopenia. We will check on the final blood cultures, awaiting for stool cultures. We will empirically start him on Maxipime and Flagyl, pending stool cultures and nicholas cultures. We will follow closely with you. If the stool culture is negative, we will discontinue the antibiotics if the patient remains afebrile. Korey Vizcaino MD
--- NOTE | 2018-07-25 09:11 | PN ---
DATE: 07/25/2018 SUBJECTIVE: He is in isolation. He is resting comfortably in bed. He is feeling better. He is concerned about the chemotherapy that he got that knocked him out and made him to have diarrhea. He is scared of having that again. He is on IV fluids. He is on Apresoline, finasteride. He is on IV Flagyl, Flomax, Granix, and potassium two were stopped. She is on Lasix, Lipitor, cefepime IV, Norvasc, Pepto-Bismol, Protonix, Timoptic and Trandate. PHYSICAL EXAMINATION: VITAL SIGNS: He has a 98.3 temperature, 75 pulse, 124/60 blood pressure, 18 respiratory rate, 90% O2 sat on room air. HEENT: His head is atraumatic, normocephalic. GENERAL: He is alert and comfortable. No pain. No diarrhea, now he is eating some. HEART: Regular rate. LUNGS: Decreased breath sounds but clear. ABDOMEN: Soft, nontender. Positive bowel sounds. EXTREMITIES: No edema. LABORATORY DATA: in isolation because his white count was 0.6. His hemoglobin is 8.6, hematocrit 24, platelets are 56, waiting for this morning's labs to come back. He has a 138 sodium, potassium 3.4, we gave him potassium yesterday. BUN 16, creatinine 0.9, GFR greater than 60, sugar is 110, calcium is 8.3, total bili is 0.9, AST is 48, ALT is 46, alk phos 91, total protein 6.9. ASSESSMENT AND PLAN: He is being seen by Infectious Disease, GI and his top and trim worker/oncologist. When I could change him off of IV antibiotics, I will send him home and also when his pancytopenia improves, we will check his labs tomorrow. Continue aggressive treatment and care, keeping in isolation for his pancytopenia with history of lung cancer with metastasis. He has diarrhea, pancytopenia, urinary tract infections. He is on IV antibiotics. Wesly Collins DO [facility]Ann-Marie
[2018-07-25] MEDS: FINASTERIDE 1 MG PO SCH (09:28)
--- NOTE | 2018-07-25 11:08 | CP.PCM.PN ---
Subjective - Date & Time of Evaluation Date of Evaluation: 07/25/18 Time of Evaluation: 08:15 - Subjective Subjective: PGY-4 GI Fellow Prog Note Pt was lying in bed when seen this AM. State diarrhea has improved some, now going every 4-5 hours rather than hourly. States he tolerated diet OK, but just has a decreased appetite and prefers liquid diet of soups, denied any dysphagia or odynophagia. Furthermore, patient expressed frustration and depressed mood given his condition. He eventually said that he does have thoughts of suicide; however, denied any plan to do so. 5 point ROS negative other than stated above Objective - Vital Signs/Intake and Output Vital Signs (last 24 hours): Temp Pulse Resp BP Pulse Ox 97.7 F 78 19 132/70 98 07/25/18 07:37 07/25/18 07:37 07/25/18 07:37 07/25/18 09:27 07/25/18 07:37 Intake and Output: 07/25/18 07/25/18 06:59 18:59 Intake Total 720 Balance 720 - Medications Medications: Current Medications Amlodipine Besylate (Norvasc) 5 mg PO HS [facility] Last Admin: 07/24/18 22:13 Dose: 5 mg Atorvastatin Calcium (Lipitor) 10 mg PO DIN [facility] Last Admin: 07/24/18 18:10 Dose: 10 mg Bismuth Subsalicylate (Pepto-Bismol) 262 mg PO Q6H PRN PRN Reason: Diarrhea Furosemide (Lasix) 20 mg PO DAILY [facility] Last Admin: 07/25/18 09:27 Dose: 20 mg Hydralazine HCl (Apresoline) 50 mg PO TID [facility] Last Admin: 07/25/18 09:27 Dose: 50 mg Sodium Chloride (Sodium Chloride 0.45%) 1,000 mls @ 60 mls/hr IV .[id number] [facility] Last Admin: 07/23/18 21:58 Dose: 60 mls/hr Metronidazole (Flagyl) 500 mg in 100 mls @ 100 mls/hr IVPB Q8 [facility]; Protocol Stop: 07/31/18 22:01 Last Admin: 07/25/18 05:20 Dose: 100 mls/hr Cefepime HCl (Maxipime 1gm) 1 gm in 100 mls @ 25 mls/hr IVPB Q8 [facility]; Protocol Stop: 08/01/18 22:01 Last Admin: 07/25/18 05:20 Dose: 25 mls/hr Labetalol HCl (Trandate) 100 mg PO BID [facility] Last Admin: 07/25/18 09:27 Dose: 100 mg Non-Formulary Medication (Finasteride [Finasteride]) 1 mg PO DAILY [facility] Last Admin: 07/25/18 09:28 Dose: Not Given Pantoprazole Sodium (Protonix Inj) 40 mg IVP DAILY [facility] Last Admin: 07/25/18 09:28 Dose: 40 mg Tamsulosin HCl (Flomax) 0.4 mg PO DAILY [facility] Last Admin: 07/25/18 09:27 Dose: 0.4 mg Timolol Maleate (Timoptic 0.5% Oph Soln) 1 drop OU DAILY [facility] Last Admin: 07/25/18 09:27 Dose: 1 drop - Labs Labs: 07/25/18 07:15 07/25/18 07:15 PT 13.5 SECONDS (9.4-12.5) H 07/23/18 15:25 INR 1.18 07/23/18 15:25 APTT 28.2 Seconds (25.1-36.5) 07/23/18 15:25 - Constitutional Appears: Non-toxic, No Acute Distress - Head Exam Head Exam: ATRAUMATIC, NORMAL INSPECTION - Eye Exam Eye Exam: EOMI, Normal appearance. absent: Conjunctival injection, Scleral icterus - ENT Exam ENT Exam: Mucous Membranes Dry, Normal External Ear Exam. absent: Mucous Membranes Moist - Respiratory Exam Respiratory Exam: NORMAL BREATHING PATTERN. absent: Accessory Muscle Use, Respiratory Distress - GI/Abdominal Exam GI & Abdominal Exam: Soft, Normal Bowel Sounds. absent: Bruit, Distended, Firm, Guarding, Rigid, Tenderness, Mass, Organomegaly, Pulsatile Mass - Psychiatric Exam Psychiatric exam: Depressed, Suicidal Ideation. absent: Agitated, Homicidal Ideation Assessment and Plan - Assessment and Plan (Free Text) Assessment: 82 yo WM with Stage IV Lung CA with mets to bone and liver (on chemo and XRT) presenting with diarrhea. # Acute Diarrhea: Onset < 30 days ago. Given immunocompromised status, of most concern would be infectious causes. ID following and managing Abx. Chemo induced diarrhea also on differential, should r/o infectious causes first. C diff negative # H/o colon polyps: In 2012 at [place] per patient. Told to repeat CSPY 2018. # Suicidal Ideation: No plan and no homicidal ideation. Understandably d ifficult position given cancer diagnosis. # Pancytopenia: Due to chemo. Neutropenic precautions. Plan: - Notified Dr. Collins of suicidal ideation expressed by patient and he plans to consult Psychiatry; agree with the consult - C diff negative - F/u Stool Cx, O&P - ID following, antibiotics cefepime and metronidazole - F/u BCx, though done after antibiotics started - Supportive care - Full liquid diet, advance as tolerated or preferred - Outpatient surveillance Colonoscopy pending clinical course Pt discussed with Dr. Dickey. Please see attestation for further recs/changes.
--- NOTE | 2018-07-26 03:01 | PN ---
DATE: 07/25/2018 SUBJECTIVE: The patient is in bed, in no acute distress, nontoxic. PHYSICAL EXAMINATION VITAL SIGNS: Temperature is 98, blood pressure is 104/60, respiratory rate of 20. HEENT: Unremarkable. NECK: Supple. LUNGS: Have decreased breath sounds. HEART: Normal S1, S2. ABDOMEN: Soft, nontender. LABORATORY DATA: Laboratory examination reveals a white count of 0.8, hemoglobin of 8, BUN of 16, creatinine of 0.6. Urinalysis is noted. Microbiology reveals the stool C. diff antigen is negative, and blood cultures, no growth. Urine cultures, no growth. No ova and parasites are seen. Review of orders reveals the patient's stool cultures are still pending. ASSESSMENT AND PLAN: He is an 82-year-old male with adenocarcinoma, stage IV, status post chemotherapy; lung cancer; hypertension; renal cell cancer with dehydration, neutropenia; severe diarrhea, most likely secondary to chemotherapy and pancytopenia and we will check on the stool cultures. Currently, now off of antibiotics. *------* note is reviewed. We will follow with you. Korey Vizcaino MD
[2018-07-26] MEDS: Sodium Chloride 0.45% 1,000 ML IV SCH (05:46)
[2018-07-26 07:23] LABS: HEMOGLOBIN 7.8 g/dL (14.0-18.0); MEAN CELL VOLUME 98.2 fl (80.0-105.0); MEAN CORPUSCULAR HEMOGLOBIN 34.8 pg (25.0-35.0); MEAN CORPUSCULAR HGB CONC 35.5 g/dl (31.0-37.0); MEAN PLATELET VOLUME 10.4 fl (7.0-11.0); RBC 2.24 10^6/uL (3.5-6.1); RED CELL DISTRIBUTION WIDTH 14.9 % (11.5-14.5)
[2018-07-26 07:28] LABS: WHITE BLOOD COUNT 1.2 10^3/ul (4.5-11.0)
[2018-07-26 07:43] LABS: ALT/SGPT 35 U/L (7-56); AST/SGOT 46 U/L (17-59); BLOOD UREA NITROGEN 13 mg/dL (7-21); CALCIUM 8.3 mg/dL (8.4-10.5); GFR NON-AFRICAN AMERICAN > 60
[2018-07-26] MEDS ORDERED: Potassium Chloride 20 mEq ER Tab PO ONE (08:18)
--- NOTE | 2018-07-26 09:26 | CP.PCM.PN ---
<Jose Angel Glover - Last Filed: 07/26/18 13:46> Subjective - Date & Time of Evaluation Date of Evaluation: 07/26/18 Time of Evaluation: 08:50 - Subjective Subjective: PGY-4 GI Fellow Prog Note Pt lying in bed eating breakfast when seen this AM. States he is feeling a little better today with stools somewhat formed, though not much substance which he attributes to him preferring a softer, liquid diet. States mood a little l ittle better today. 5 point ROS negative other than stated above Objective - Vital Signs/Intake and Output Vital Signs (last 24 hours): Temp Pulse Resp BP Pulse Ox 98.7 F 61 20 115/62 97 07/26/18 00:00 07/26/18 00:00 07/26/18 00:00 07/26/18 00:00 07/26/18 00:00 Intake and Output: 07/26/18 07/26/18 06:59 18:59 Intake Total 960 Balance 960 - Medications Medications: Current Medications Amlodipine Besylate (Norvasc) 5 mg PO HS [facility] Last Admin: 07/25/18 22:03 Dose: 5 mg Atorvastatin Calcium (Lipitor) 10 mg PO DIN [facility] Last Admin: 07/25/18 17:02 Dose: 10 mg Bismuth Subsalicylate (Pepto-Bismol) 262 mg PO Q6H PRN PRN Reason: Diarrhea Ferrous Sulfate (Feosol) 324 mg PO TID [facility] Furosemide (Lasix) 20 mg PO DAILY [facility] Last Admin: 07/25/18 09:27 Dose: 20 mg Hydralazine HCl (Apresoline) 50 mg PO TID [facility] Last Admin: 07/25/18 17:01 Dose: 50 mg Sodium Chloride (Sodium Chloride 0.45%) 1,000 mls @ 60 mls/hr IV .[id number] [facility] Last Admin: 07/26/18 05:46 Dose: 60 mls/hr Labetalol HCl (Trandate) 100 mg PO BID [facility] Last Admin: 07/25/18 17:02 Dose: 100 mg Non-Formulary Medication (Finasteride [Finasteride]) 1 mg PO DAILY [facility] Last Admin: 07/25/18 09:28 Dose: Not Given Pantoprazole Sodium (Protonix Inj) 40 mg IVP DAILY [facility] Last Admin: 07/25/18 09:28 Dose: 40 mg Tamsulosin HCl (Flomax) 0.4 mg PO DAILY [facility] Last Admin: 07/25/18 09:27 Dose: 0.4 mg Timolol Maleate (Timoptic 0.5% Ophth Soln) 1 drop OU DAILY [facility] Last Admin: 07/25/18 09:27 Dose: 1 drop - Labs Labs: 07/26/18 07:00 07/26/18 07:00 PT 13.5 SECONDS (9.4-12.5) H 07/23/18 15:25 INR 1.18 07/23/18 15:25 APTT 28.2 Seconds (25.1-36.5) 07/23/18 15:25 - Constitutional Appears: Well, Non-toxic - Head Exam Head Exam: ATRAUMATIC, NORMAL INSPECTION - Eye Exam Eye Exam: EOMI, Normal appearance. absent: Conjunctival injection - ENT Exam ENT Exam: Mucous Membranes Moist, Normal External Ear Exam. absent: Mucous Membranes Dry - Respiratory Exam Respiratory Exam: NORMAL BREATHING PATTERN. absent: Accessory Muscle Use, Respiratory Distress - GI/Abdominal Exam GI & Abdominal Exam: Soft, Normal Bowel Sounds. absent: Bruit, Distended, Firm, Guarding, Rigid, Tenderness, Mass, Organomegaly, Pulsatile Mass, Rebound Assessment and Plan - Assessment and Plan (Free Text) Assessment: 82 yo WM with Stage IV Lung CA with mets to bone and liver (on chemo and XRT) presenting with diarrhea. # Acute Diarrhea: Onset < 30 days ago. Given immunocompromised status, of most concern would be infectious causes. ID following and managing Abx. Chemo induced diarrhea also on differential, should r/o infectious causes first. C diff and O&P negative. Therefore, now suspect related to chemo. # H/o colon polyps: In 2012 at [place] per patient. Told to repeat CSPY 2018. # Suicidal Ideation: No plan and no homicidal ideation. Understandably difficult position given cancer diagnosis. # Pancytopenia: Due to chemo. Neutropenic precautions. Plan: - C diff and O&P negative - F/u Stool Cx - ID following, antibiotics cefepime and metronidazole --- Defer abx course to ID - F/u BCx NGTD, though done after antibiotics started - Supportive care - Full liquid diet, advance as tolerated or preferred - Outpatient surveillance Colonoscopy pending clinical course - Primary team notified of Suicidal ideation, psych consulted - Ultimately, suspect this is related to chemotherapy; should results return abnormal please re-consult as necessary. Thank you for the consult. Will sign off. Please call if questions Pt discussed with Dr. Graff. Please see attestation for further recs/changes. <Karl Graff - Last Filed: 07/26/18 18:22> Objective - Vital Signs/Intake and Output Vital Signs (last 24 hours): Temp Pulse Resp BP Pulse Ox 98.5 F 64 20 111/62 97 07/26/18 17:52 07/26/18 17:52 07/26/18 17:52 07/26/18 17:52 07/26/18 16:30 Intake and Output: 07/26/18 07/26/18 06:59 18:59 Intake Total 960 325 Balance 960 325 - Medications Medications: Current Medications Amlodipine Besylate (Norvasc) 5 mg PO HS [facility] Last Admin: 07/25/18 22:03 Dose: 5 mg Atorvastatin Calcium (Lipitor) 10 mg PO DIN [facility] Last Admin: 07/26/18 17:11 Dose: 10 mg Bismuth Subsalicylate (Pepto-Bismol) 262 mg PO Q6H PRN PRN Reason: Diarrhea Ferrous Sulfate (Feosol) 324 mg PO TID [facility] Last Admin: 07/26/18 17:11 Dose: 324 mg Furosemide (Lasix) 20 mg PO DAILY [facility] Last Admin: 07/26/18 10:13 Dose: 20 mg Hydralazine HCl (Apresoline) 50 mg PO TID [facility] Last Admin: 07/26/18 17:11 Dose: 50 mg Sodium Chloride (Sodium Chloride 0.45%) 1,000 mls @ 60 mls/hr IV .[id number] [facility] Last Admin: 07/26/18 05:46 Dose: 60 mls/hr Labetalol HCl (Trandate) 100 mg PO BID [facility] Last Admin: 07/26/18 17:11 Dose: 100 mg Non-Formulary Medication (Finasteride [Finasteride]) 1 mg PO DAILY [facility] Last Admin: 07/26/18 10:13 Dose: Not Given Pantoprazole Sodium (Protonix Inj) 40 mg IVP DAILY [facility] Last Admin: 07/26/18 10:11 Dose: 40 mg Tamsulosin HCl (Flomax) 0.4 mg PO DAILY [facility] Last Admin: 07/26/18 10:12 Dose: 0.4 mg Timolol Maleate (Timoptic 0.5% Ophth Soln) 1 drop OU DAILY [facility] Last Admin: 07/26/18 10:19 Dose: 1 drop - Labs Labs: 07/26/18 07:00 07/26/18 07:00 PT 13.5 SECONDS (9.4-12.5) H 07/23/18 15:25 INR 1.18 07/23/18 15:25 APTT 28.2 Seconds (25.1-36.5) 07/23/18 15:25 Attending/Attestation - Attestation I have personally seen and examined this patient.: Yes I have fully participated in the care of the patient.: Yes I have reviewed all pertinent clinical information, including history, physical exam and plan: Yes Notes (Text): 07/26/18 18:20 Patient seen in am on GI rounds. This is a 82 yo WM with Stage IV Lung CA with mets to bone and liver (on chemo and XRT) presenting with diarrhea with infectious work up negative. Diarrhea likely chemotherapy related now resolving. Supportive care. Diet as tolerated. Rest of plan as per oncology. Will sign off. Thank you for letting us particiapte in the care of your patient
[2018-07-26] MEDS: FINASTERIDE 1 MG PO SCH (10:13)
--- NOTE | 2018-07-26 11:22 | CP.PCM.PN ---
Subjective - Date & Time of Evaluation Date of Evaluation: 07/25/18 Time of Evaluation: 11:00 - Subjective Subjective: Feeling better redosed Granix today Objective - Vital Signs/Intake and Output Vital Signs (last 24 hours): Temp Pulse Resp BP Pulse Ox 98.7 F 73 20 132/70 97 07/26/18 00:00 07/26/18 10:12 07/26/18 00:00 07/26/18 10:13 07/26/18 00:00 Intake and Output: 07/26/18 07/26/18 06:59 18:59 Intake Total 960 Balance 960 - Medications Medications: Current Medications Acetaminophen (Tylenol 325mg Tab) 650 mg PO ONCE ONE Stop: 07/26/18 12:01 Amlodipine Besylate (Norvasc) 5 mg PO HS [facility] Last Admin: 07/25/18 22:03 Dose: 5 mg Atorvastatin Calcium (Lipitor) 10 mg PO DIN [facility] Last Admin: 07/25/18 17:02 Dose: 10 mg Bismuth Subsalicylate (Pepto-Bismol) 262 mg PO Q6H PRN PRN Reason: Diarrhea Ferrous Sulfate (Feosol) 324 mg PO TID [facility] Last Admin: 07/26/18 10:11 Dose: 324 mg Furosemide (Lasix) 20 mg PO DAILY [facility] Last Admin: 07/26/18 10:13 Dose: 20 mg Hydralazine HCl (Apresoline) 50 mg PO TID [facility] Last Admin: 07/26/18 10:12 Dose: 50 mg Sodium Chloride (Sodium Chloride 0.45%) 1,000 mls @ 60 mls/hr IV .[id number] [facility] Last Admin: 07/26/18 05:46 Dose: 60 mls/hr Labetalol HCl (Trandate) 100 mg PO BID [facility] Last Admin: 07/26/18 10:12 Dose: 100 mg Non-Formulary Medication (Finasteride [Finasteride]) 1 mg PO DAILY [facility] Last Admin: 07/26/18 10:13 Dose: Not Given Pantoprazole Sodium (Protonix Inj) 40 mg IVP DAILY [facility] Last Admin: 07/26/18 10:11 Dose: 40 mg Tamsulosin HCl (Flomax) 0.4 mg PO DAILY [facility] Last Admin: 07/26/18 10:12 Dose: 0.4 mg Timolol Maleate (Timoptic 0.5% Ophth Soln) 1 drop OU DAILY [facility] Last Admin: 07/26/18 10:19 Dose: 1 drop - Labs Labs: 07/26/18 07:00 07/26/18 07:00 PT 13.5 SECONDS (9.4-12.5) H 07/23/18 15:25 INR 1.18 07/23/18 15:25 APTT 28.2 Seconds (25.1-36.5) 07/23/18 15:25 - Head Exam Head Exam: ATRAUMATIC - Eye Exam Eye Exam: Normal appearance - ENT Exam ENT Exam: Mucous Membranes Dry - Respiratory Exam Respiratory Exam: NORMAL BREATHING PATTERN - Cardiovascular Exam Cardiovascular Exam: +S1, +S2 - GI/Abdominal Exam GI & Abdominal Exam: Normal Bowel Sounds - Extremities Exam Extremities Exam: Normal Inspection Assessment and Plan (1) Pancytopenia Assessment & Plan: secondary to chemotherapy s/p Granix this morning transfusion support PRN Status: Acute (2) Dehydration Assessment & Plan: resolving, on IV fluids Status: Acute (3) Diarrhea Assessment & Plan: resolving on empiric ABX Status: Acute (4) Lung cancer Assessment & Plan: stage IV outpatient treatment Status: Acute
--- NOTE | 2018-07-26 22:04 | CP.PCM.PN ---
Subjective - Date & Time of Evaluation Date of Evaluation: 07/26/18 Time of Evaluation: 13:00 - Subjective Subjective: Feeling better for 2U PRBC and Granix today. Objective - Vital Signs/Intake and Output Vital Signs (last 24 hours): Temp Pulse Resp BP Pulse Ox 98.5 F 64 20 111/62 97 07/26/18 17:52 07/26/18 17:52 07/26/18 17:52 07/26/18 17:52 07/26/18 16:30 Intake and Output: 07/26/18 07/27/18 18:59 06:59 Intake Total 325 1565 Balance 325 1565 - Medications Medications: Current Medications Amlodipine Besylate (Norvasc) 5 mg PO HS [facility] Last Admin: 07/25/18 22:03 Dose: 5 mg Atorvastatin Calcium (Lipitor) 10 mg PO DIN [facility] Last Admin: 07/26/18 17:11 Dose: 10 mg Bismuth Subsalicylate (Pepto-Bismol) 262 mg PO Q6H PRN PRN Reason: Diarrhea Ferrous Sulfate (Feosol) 324 mg PO TID [facility] Last Admin: 07/26/18 17:11 Dose: 324 mg Furosemide (Lasix) 20 mg PO DAILY [facility] Last Admin: 07/26/18 10:13 Dose: 20 mg Hydralazine HCl (Apresoline) 50 mg PO TID [facility] Last Admin: 07/26/18 17:11 Dose: 50 mg Sodium Chloride (Sodium Chloride 0.45%) 1,000 mls @ 60 mls/hr IV .[id number] [facility] Last Admin: 07/26/18 05:46 Dose: 60 mls/hr Labetalol HCl (Trandate) 100 mg PO BID [facility] Last Admin: 07/26/18 17:11 Dose: 100 mg Non-Formulary Medication (Finasteride [Finasteride]) 1 mg PO DAILY [facility] Last Admin: 07/26/18 10:13 Dose: Not Given Pantoprazole Sodium (Protonix Inj) 40 mg IVP DAILY [facility] Last Admin: 07/26/18 10:11 Dose: 40 mg Tamsulosin HCl (Flomax) 0.4 mg PO DAILY [facility] Last Admin: 07/26/18 10:12 Dose: 0.4 mg Timolol Maleate (Timoptic 0.5% Ophth Soln) 1 drop OU DAILY [facility] Last Admin: 07/26/18 10:19 Dose: 1 drop - Labs Labs: 07/26/18 07:00 07/26/18 07:00 PT 13.5 SECONDS (9.4-12.5) H 07/23/18 15:25 INR 1.18 07/23/18 15:25 APTT 28.2 Seconds (25.1-36.5) 07/23/18 15:25 - Head Exam Head Exam: ATRAUMATIC - Eye Exam Eye Exam: Normal appearance - ENT Exam ENT Exam: Mucous Membranes Dry - Respiratory Exam Respiratory Exam: NORMAL BREATHING PATTERN - Cardiovascular Exam Cardiovascular Exam: +S1, +S2 - GI/Abdominal Exam GI & Abdominal Exam: Normal Bowel Sounds Assessment and Plan (1) Pancytopenia Assessment & Plan: secondary to chemotherapy 2U PRBC today redose Granix today; neutropenia improving Status: Acute (2) Dehydration Assessment & Plan: resolving IV fluids Status: Acute (3) Diarrhea Assessment & Plan: resolving Status: Acute (4) Lung cancer Assessment & Plan: stage IV outpatient chemotherapy Status: Acute
--- NOTE | 2018-07-27 02:53 | DS ---
HISTORY OF PRESENT ILLNESS: He is doing much better. He is off of IV antibiotics. He is being seen by Hematology, GI, Infectious Disease, and a consult with Dr. Dobbs the psychiatrist because he told the GI doctor that he had suicidal thoughts, none to me though of which he says. PHYSICAL EXAMINATION: VITAL SIGNS: 98.7 temperature, 61 pulse, 115/62 blood pressure, 20 respiratory rate, 97% sat on room air. HEENT: Head is atraumatic, normocephalic. HEART: Regular rate. LUNGS: Clear to auscultation. ABDOMEN: Soft, nontender, positive bowel sounds. EXTREMITIES: No edema. He is walking in the room. MEDICATIONS: He is on Apresoline, finasteride, Flomax, Lasix, Lipitor, Norvasc, Pepto-Bismol, Protonix, Timoptic and Trandate, will be on the same medications. LABORATORY DATA: His white count went up to 1.2, which means he does need to be on isolation, . His hemoglobin did drop to 7.8, we will add some iron, 22 hematocrit, with a 52 platelets. Sodium 136, potassium is 3.2, I have given him some potassium today, BUN 13, creatinine 1, GFR is greater than 62, sugar is 99, calcium is 8.3, total bili is 0.7, AST is 46, ALT is 35, alk phos 87, total protein 6.1. Did have many bacteria in the urine but the cultures were negative as white count went up. I will discharge him if okay with Psychiatry, they think he is okay and that is my plan. he will follow up with the outpatient with his primary care doctor and Dr. Zeng, his oncologist. Wesly Collins DO [facility]
[2018-07-27 04:07] VITALS: RESP 20
--- NOTE | 2018-07-27 04:17 | PN ---
DATE: 07/26/2018 SUBJECTIVE: The patient is in bed, in no acute distress. PHYSICAL EXAMINATION: VITAL SIGNS: On exam, temperature is 98, blood pressure is 111/60, respiratory rate of 20. HEENT: Examination of HEENT is unremarkable. NECK: Supple. LUNGS: Have decreased breath sounds. HEART: Normal S1, S2. ABDOMEN: Soft. LABORATORY DATA: Laboratory examination reveals white count is 1.2, hemoglobin of 7, BUN of 13, creatinine of 1. Urinalysis is noted. Microbiology reveals the blood cultures are negative. Urine cultures are negative and C. Diff antigen and toxin are both negative and stool cultures, no Salmonella, no Shigella, no Campylobacter was isolated, ova and parasites are negative. Review of orders reveals the patient is off of antibiotics. ASSESSMENT AND PLAN: An 82-year-old male with past medical history of stage IV lung cancer, adenocarcinoma with chemotherapy, hypertension, small bowel obstruction, benign prostatic hyperplasia, hyperlipidemia and renal cancer, severe diarrhea, probably secondary to chemotherapy and pancytopenia. Currently, off of antibiotics. The patient is at risk for developing nosocomial infections. Korey Vizcaino MD
[2018-07-27] MEDS ORDERED: Potassium Chloride 20 mEq ER Tab PO STA (07:34)
[2018-07-27 08:08] LABS: BASO # 0.07 K/mm3 (0.0-2.0); BASO % 2.1 % (0.0-3.0); EOS # 0.1 (0.0-0.7); EOS % 1.8 % (1.5-5.0); GRAN # 1.34 (1.4-6.5); GRAN % 39.8 % (50.0-68.0); LYMPH # 0.9 (1.2-3.4); LYMPH % 27.4 % (22.0-35.0); MEAN CORPUSCULAR HEMOGLOBIN 33.3 pg (25.0-35.0); MEAN CORPUSCULAR HGB CONC 35.1 g/dl (31.0-37.0); MEAN PLATELET VOLUME 10.2 fl (7.0-11.0); MONO % 28.9 % (1.0-6.0); PLATELET COUNT 72 10^3/uL (120.0-450.0); RBC 3.15 10^6/uL (3.5-6.1); RED CELL DISTRIBUTION WIDTH 16.8 % (11.5-14.5); WHITE BLOOD COUNT 3.4 10^3/ul (4.5-11.0)
[2018-07-27 08:12] LABS: MEAN CELL VOLUME 94.9 fl (80.0-105.0)
[2018-07-27 08:13] LABS: HEMOGLOBIN 10.5 g/dL (14.0-18.0)
[2018-07-27 08:23] VITALS: BP 140/71; PULSE 72; TEMP 98.4; O2SAT 95
[2018-07-27 09:15] LABS: ANISOCYTOSIS SLIGHT; BAND 2 % (0-2); BASOPHIL 2 % (0.0-1.0); EOSINOPHIL 5 % (0.0-3.0); LYMPHOCYTE 21 % (22.0-35.0); MONOCYTE 28 % (1.0-6.0); MYELOCYTE 1 %; NEUTROPHIL 41 % (50.0-70.0); NUCLEATED RED BLOOD CELL 12 %; PLATELET ESTIMATE LOW (NORMAL); POLYCHROMASIA SLIGHT
[2018-07-27] MEDS: FINASTERIDE 1 MG PO SCH (10:29)
--- NOTE | 2018-07-27 14:16 | CP.PCM.PCO ---
Physician Communication Note - Physician Communication Note Physician Communication Note: pt was seen by 07/26/18, should you have question, call
--- NOTE | 2018-07-27 15:43 | CP.PCM.DIS ---
<Miley Marvin - Last Filed: 07/27/18 15:43> Provider - Provider Date of Admission: 07/24/18 08:37 Attending physician: Wesly Collins DO Consults: Dr. Karri Laureano Time Spent in preparation of Discharge (in minutes): 45 Hospital Course - Lab Results Lab Results: Micro Results 07/23/18 16:29 Blood Blood Culture - Preliminary NO GROWTH AFTER 3 DAYS 07/23/18 15:55 Blood Blood Culture - Preliminary NO GROWTH AFTER 3 DAYS 07/24/18 11:47 Stool Stool Culture - Final NO SALMONELLA, SHIGELLA OR CAMPYLOBACTER ISOLATED. 07/24/18 11:47 Stool Ova and Parasite Concentrate Exam - Final 07/23/18 17:13 Urine Urine Culture - Final No Growth (<1,000 CFU/ML) 07/23/18 18:31 Stool C. difficile Antigen & Toxins A,B - Final Most Recent Lab Values WBC 3.4 10^3/ul (4.5-11.0) L D 07/27/18 08:00 RBC 3.15 10^6/uL (3.5-6.1) L 07/27/18 08:00 Hgb 10.5 g/dL (14.0-18.0) L D 07/27/18 08:00 Hct 29.9 % (42.0-52.0) L 07/27/18 08:00 MCV 94.9 fl (80.0-105.0) D 07/27/18 08:00 MCH 33.3 pg (25.0-35.0) 07/27/18 08:00 MCHC 35.1 g/dl (31.0-37.0) 07/27/18 08:00 RDW 16.8 % (11.5-14.5) H 07/27/18 08:00 Plt Count 72 10^3/uL (120.0-450.0) L 07/27/18 08:00 MPV 10.2 fl (7.0-11.0) 07/27/18 08:00 Gran % 39.8 % (50.0-68.0) L 07/27/18 08:00 Lymph % (Auto) 27.4 % (22.0-35.0) 07/27/18 08:00 Jenkins % (Auto) 28.9 % (1.0-6.0) H 07/27/18 08:00 Eos % (Auto) 1.8 % (1.5-5.0) 07/27/18 08:00 Baso % (Auto) 2.1 % (0.0-3.0) 07/27/18 08:00 Gran # 1.34 (1.4-6.5) L 07/27/18 08:00 Lymph # (Auto) 0.9 (1.2-3.4) L 07/27/18 08:00 Jenkins # (Auto) 1.0 (0.1-0.6) H 07/27/18 08:00 Eos # (Auto) 0.1 (0.0-0.7) 07/27/18 08:00 Baso # (Auto) 0.07 K/mm3 (0.0-2.0) 07/27/18 08:00 Corrected WBC (Man) 3.0 K/mm3 (4.5-11.0) L 07/27/18 08:00 Neutrophils % (Manual) 41 % (50.0-70.0) L 07/27/18 08:00 Band Neutrophils % 2 % (0-2) 07/27/18 08:00 Lymphocytes % (Manual) 21 % (22.0-35.0) L 07/27/18 08:00 Monocytes % (Manual) 28 % (1.0-6.0) H 07/27/18 08:00 Eosinophils % (Manual) 5 % (0.0-3.0) H 07/27/18 08:00 Basophils % (Manual) 2 % (0.0-1.0) H 07/27/18 08:00 Myelocytes % 1 % 07/27/18 08:00 Nucleated RBC % 12 % 07/27/18 08:00 Platelet Evaluation Low (NORMAL) 07/27/18 08:00 Polychromasia Slight 07/27/18 08:00 Anisocytosis (manual) Slight 07/27/18 08:00 PT 13.5 SECONDS (9.4-12.5) H 07/23/18 15:25 INR 1.18 07/23/18 15:25 APTT 28.2 Seconds (25.1-36.5) 07/23/18 15:25 pO2 120 mm/Hg (30-55) H 07/23/18 16:31 VBG pH 7.44 (7.32-7.43) H 07/23/18 16:31 VBG pCO2 35.0 (40-60) L 07/23/18 16:31 VBG HCO3 23.8 mmol/l (21-28) 07/23/18 16:31 VBG Total CO2 24.9 mmol.L (22-28) 07/23/18 16:31 VBG O2 Sat (Calc) 99.5 % (40-65) H 07/23/18 16:31 VBG Base Excess 0.1 mmol/L (0.0-2.0) 07/23/18 16:31 VBG Potassium 3.3 mmol/L (3.6-5.2) L 07/23/18 16:31 Sodium 137.0 mmol/L (132-148) 07/23/18 16:31 Chloride 111.0 mmol/L (98-107) H 07/23/18 16:31 Glucose 107 mg/dl (75-110) 07/23/18 16:31 Lactate 1.2 mmol/L (0.7-2.1) 07/23/18 16:31 FiO2 21.0 % 07/23/18 16:31 Sodium 136 mmol/L (132-148) 07/26/18 07:00 Potassium 3.2 mmol/L (3.6-5.0) L 07/26/18 07:00 Chloride 105 mmol/L (98-107) 07/26/18 07:00 Carbon Dioxide 24 mmol/L (21-33) 07/26/18 07:00 Anion Gap 10 (10-20) 07/26/18 07:00 BUN 13 mg/dL (7-21) 07/26/18 07:00 Creatinine 1.0 mg/dl (0.8-1.5) 07/26/18 07:00 Est GFR ( Amer) > 60 07/26/18 07:00 Est GFR (Non-Af Amer) > 60 07/26/18 07:00 Random Glucose 99 mg/dL (70-110) 07/26/18 07:00 Calcium 8.3 mg/dL (8.4-10.5) L 07/26/18 07:00 Magnesium 1.9 mg/dL (1.7-2.2) 07/23/18 15:25 Total Bilirubin 0.7 mg/dL (0.2-1.3) 07/26/18 07:00 AST 46 U/L (17-59) 07/26/18 07:00 ALT 35 U/L (7-56) 07/26/18 07:00 Alkaline Phosphatase 87 U/L (38-126) 07/26/18 07:00 Total Protein 6.1 g/dL (5.8-8.3) 07/26/18 07:00 Albumin 3.0 g/dL (3.0-4.8) 07/26/18 07:00 Globulin 3.1 gm/dL 07/26/18 07:00 Albumin/Globulin Ratio 1.0 (1.1-1.8) L 07/26/18 07:00 Amylase 75 U/L (35-125) 07/23/18 15:25 Lipase 42 U/L (23-300) 07/23/18 15:25 Venous Blood Potassium 3.3 mmol/L (3.6-5.2) L 07/23/18 16:31 Urine Color Yellow (YELLOW) 07/23/18 17:13 Urine Appearance Clear (CLEAR) 07/23/18 17:13 Urine pH 6.0 (4.7-8.0) 07/23/18 17:13 Ur Specific Stilwell 1.025 (1.005-1.035) 07/23/18 17:13 Urine Protein 30 mg/dL (<30 mg/dL) H 07/23/18 17:13 Urine Glucose (UA) Negative mg/dL (NEGATIVE) 07/23/18 17:13 Urine Ketones Negative mg/dL (NEGATIVE) 07/23/18 17:13 Urine Blood Negative (NEGATIVE) 07/23/18 17:13 Urine Nitrate Negative (NEGATIVE) 07/23/18 17:13 Urine Bilirubin Small (NEGATIVE) H 07/23/18 17:13 Urine Urobilinogen 0.2 E.U./dL (<1 E.U./dL) 07/23/18 17:13 Ur Leukocyte Esterase Trace Ray/uL (NEGATIVE) H 07/23/18 17:13 Urine RBC 0 - 2 /hpf (0-2) 07/23/18 17:13 Urine WBC 2 - 5 /hpf (0-6) 07/23/18 17:13 Ur Epithelial Cells 0 - 2 /hpf (0-5) 07/23/18 17:13 Amorphous Sediment Few 07/23/18 17:13 Urine Bacteria Many (NEG) 07/23/18 17:13 Fine Granular Casts 0 - 2 /hpf (0-2) 07/23/18 17:13 Urine Other Uyeast 07/23/18 17:13 Blood Type A POSITIVE 07/26/18 11:30 Antibody Screen Negative 07/26/18 11:30 Crossmatch See Detail 07/26/18 11:30 BBK History Checked Patient has bt 07/26/18 11:30 - Hospital Course Hospital Course: Upon Admission Pt is an 82 yo make with a PMH that includes BPH, gallbladder disease, bilateral cataracts, renal tumor on left side and lung cancer currently undergoing chemoradiation with Dr. Zeng. He has a decreased appetite and diarrhea x 5 days. He is on high dose chemotherapy five days ago and is now having mild abdominal pain and diarrhea. No blood in stools, but contreras feel shaky at times. No SOB or pleuritic pain despite recent lung cancer. He is hypotensive. Hospital Course Pt is an 82yo male with PMH of lung cancer currently undergoing chemoradiation who was admitted for observation after 5 days of watery diarrhea occurring every hour and decreased appetite. In the ED pt was not hypotensive, tachycardic, was afebrile. Lactate was unremarkable. EKG obtained was unremarkable. Pt had lymphopenia with a WBC of 2.2, likely due to chemoradiation treatments. Pt as place in isolation room due to his neutropenia. Consulted GI, ID, heme/onc. Pt was put on IV antibiotics. Infectious etiology for diarrhea was negative. Pt is doing much better. Abx were dced. He is being seen by hematology, GI, infections disease, and a consult with psychiatry because he told GI doctor he had suicidal thoughts. Pt reports diarrhea has decreased and he is feeling better. Urine cx are negative and C. Diff antigen and toxin are both negative and stool cultures; no salmonella, no campylobacter isolated, stool O ad P are negative. WBC on discharge was 3.4. Pt is stable for discharge and outpatient management as he is at increased risk for nosocomial infections. He no longer describes any suicidal ideation. Discharge Plan Pt is stable for discharge to home as per Dr. Scott. Pt should f/u with Dr. Zeng his oncologist within 3-5 days of discharge form ambulatory clinic. Pt is to resume all home meds as described in discharge instructions. Pt should return to the hospital if sxs recur or worsen. Pt understands plan as above and agrees. Patient stated prior to discharge that he did not need any medications and he would see Dr. Zeng for any further recommendations. Patient took 1 dose of KCl 40meq prior to discharge. Patient will require BMP bloodwork within 1 week of discharge. Patient expressed no SI or plan to hurt himself. Disclaimer: Written above is a synopsis of patient's current hospital admission. For full report refer to EMR Discharge Exam - Head Exam Head Exam: ATRAUMATIC - Eye Exam Eye Exam: EOMI, Normal appearance. absent: Nystagmus, Scleral icterus - Respiratory Exam Respiratory Exam: NORMAL BREATHING PATTERN. absent: Rales, Rhonchi, Wheezes, Respiratory Distress - Cardiovascular Exam Cardiovascular Exam: REGULAR RHYTHM, +S1, +S2. absent: Bradycardia, Tachycardia - GI/Abdominal Exam GI & Abdominal Exam: Normal Bowel Sounds, Soft. absent: Diminished Bowel Sounds, Distended, Firm, Guarding, Tenderness - Extremities Exam Extremities exam: normal inspection - Neurological Exam Neurological exam: Alert, Normal Gait, Oriented x3 - Psychiatric Exam Psychiatric exam: Normal Affect, Normal Mood - Skin Skin Exam: Intact, Normal Color Discharge Plan - Discharge Medications Prescriptions: RX: Potassium Chloride [K-Dur 20 mEq ER Tab] 20 meq PO BID #10 tab - Follow Up Plan Condition: FAIR Disposition: HOME/ ROUTINE Instructions: Nausea and Vomiting With Cancer Treatment, Dehydration (DC), Nutrition Tips for Relief of Diarrhea (DC) Additional Instructions: 1. Patient is stable for discharge to home as per Dr. Scott 2. Patient should follow up with Dr. Zeng within 3-7 days of discharge for continued treatment of patient's oncology issues. 3. Patient will resume all of his home medications as prescribed. Patient will be discharged with KCl 20 meq to be taken twice a day for the next 5 days with repeat BMP in [address] Zeng. 4. Patient should return to hospital if symptoms worsen or recur. 5. Patient understands the plan as above and agrees. Referrals: Fleipe Zeng MD [Staff Provider] - <Yi Scott - Last Filed: 07/27/18 16:30> Provider - Provider Date of Admission: 07/24/18 08:37 Attending physician: Wesly Collins Hospital Course - Lab Results Lab Results: Micro Results 07/23/18 16:29 Blood Blood Culture - Preliminary NO GROWTH AFTER 3 DAYS 07/23/18 15:55 Blood Blood Culture - Preliminary NO GROWTH AFTER 3 DAYS 07/24/18 11:47 Stool Stool Culture - Final NO SALMONELLA, SHIGELLA OR CAMPYLOBACTER ISOLATED. 07/24/18 11:47 Stool Ova and Parasite Concentrate Exam - Final 07/23/18 17:13 Urine Urine Culture - Final No Growth (<1,000 CFU/ML) 07/23/18 18:31 Stool C. difficile Antigen & Toxins A,B - Final Most Recent Lab Values WBC 3.4 10^3/ul (4.5-11.0) L D 07/27/18 08:00 RBC 3.15 10^6/uL (3.5-6.1) L 07/27/18 08:00 Hgb 10.5 g/dL (14.0-18.0) L D 07/27/18 08:00 Hct 29.9 % (42.0-52.0) L 07/27/18 08:00 MCV 94.9 fl (80.0-105.0) D 07/27/18 08:00 MCH 33.3 pg (25.0-35.0) 07/27/18 08:00 MCHC 35.1 g/dl (31.0-37.0) 07/27/18 08:00 RDW 16.8 % (11.5-14.5) H 07/27/18 08:00 Plt Count 72 10^3/uL (120.0-450.0) L 07/27/18 08:00 MPV 10.2 fl (7.0-11.0) 07/27/18 08:00 Gran % 39.8 % (50.0-68.0) L 07/27/18 08:00 Lymph % (Auto) 27.4 % (22.0-35.0) 07/27/18 08:00 Jenkins % (Auto) 28.9 % (1.0-6.0) H 07/27/18 08:00 Eos % (Auto) 1.8 % (1.5-5.0) 07/27/18 08:00 Baso % (Auto) 2.1 % (0.0-3.0) 07/27/18 08:00 Gran # 1.34 (1.4-6.5) L 07/27/18 08:00 Lymph # (Auto) 0.9 (1.2-3.4) L 07/27/18 08:00 Jenkins # (Auto) 1.0 (0.1-0.6) H 07/27/18 08:00 Eos # (Auto) 0.1 (0.0-0.7) 07/27/18 08:00 Baso # (Auto) 0.07 K/mm3 (0.0-2.0) 07/27/18 08:00 Corrected WBC (Man) 3.0 K/mm3 (4.5-11.0) L 07/27/18 08:00 Neutrophils % (Manual) 41 % (50.0-70.0) L 07/27/18 08:00 Band Neutrophils % 2 % (0-2) 07/27/18 08:00 Lymphocytes % (Manual) 21 % (22.0-35.0) L 07/27/18 08:00 Monocytes % (Manual) 28 % (1.0-6.0) H 07/27/18 08:00 Eosinophils % (Manual) 5 % (0.0-3.0) H 07/27/18 08:00 Basophils % (Manual) 2 % (0.0-1.0) H 07/27/18 08:00 Myelocytes % 1 % 07/27/18 08:00 Nucleated RBC % 12 % 07/27/18 08:00 Platelet Evaluation Low (NORMAL) 07/27/18 08:00 Polychromasia Slight 07/27/18 08:00 Anisocytosis (manual) Slight 07/27/18 08:00 PT 13.5 SECONDS (9.4-12.5) H 07/23/18 15:25 INR 1.18 07/23/18 15:25 APTT 28.2 Seconds (25.1-36.5) 07/23/18 15:25 pO2 120 mm/Hg (30-55) H 07/23/18 16:31 VBG pH 7.44 (7.32-7.43) H 07/23/18 16:31 VBG pCO2 35.0 (40-60) L 07/23/18 16:31 VBG HCO3 23.8 mmol/l (21-28) 07/23/18 16:31 VBG Total CO2 24.9 mmol.L (22-28) 07/23/18 16:31 VBG O2 Sat (Calc) 99.5 % (40-65) H 07/23/18 16:31 VBG Base Excess 0.1 mmol/L (0.0-2.0) 07/23/18 16:31 VBG Potassium 3.3 mmol/L (3.6-5.2) L 07/23/18 16:31 Sodium 137.0 mmol/L (132-148) 07/23/18 16:31 Chloride 111.0 mmol/L (98-107) H 07/23/18 16:31 Glucose 107 mg/dl (75-110) 07/23/18 16:31 Lactate 1.2 mmol/L (0.7-2.1) 07/23/18 16:31 FiO2 21.0 % 07/23/18 16:31 Sodium 136 mmol/L (132-148) 07/26/18 07:00 Potassium 3.2 mmol/L (3.6-5.0) L 07/26/18 07:00 Chloride 105 mmol/L (98-107) 07/26/18 07:00 Carbon Dioxide 24 mmol/L (21-33) 07/26/18 07:00 Anion Gap 10 (10-20) 07/26/18 07:00 BUN 13 mg/dL (7-21) 07/26/18 07:00 Creatinine 1.0 mg/dl (0.8-1.5) 07/26/18 07:00 Est GFR ( Amer) > 60 07/26/18 07:00 Est GFR (Non-Af Amer) > 60 07/26/18 07:00 Random Glucose 99 mg/dL (70-110) 07/26/18 07:00 Calcium 8.3 mg/dL (8.4-10.5) L 07/26/18 07:00 Magnesium 1.9 mg/dL (1.7-2.2) 07/23/18 15:25 Total Bilirubin 0.7 mg/dL (0.2-1.3) 07/26/18 07:00 AST 46 U/L (17-59) 07/26/18 07:00 ALT 35 U/L (7-56) 07/26/18 07:00 Alkaline Phosphatase 87 U/L (38-126) 07/26/18 07:00 Total Protein 6.1 g/dL (5.8-8.3) 07/26/18 07:00 Albumin 3.0 g/dL (3.0-4.8) 07/26/18 07:00 Globulin 3.1 gm/dL 07/26/18 07:00 Albumin/Globulin Ratio 1.0 (1.1-1.8) L 07/26/18 07:00 Amylase 75 U/L (35-125) 07/23/18 15:25 Lipase 42 U/L (23-300) 07/23/18 15:25 Venous Blood Potassium 3.3 mmol/L (3.6-5.2) L 07/23/18 16:31 Urine Color Yellow (YELLOW) 07/23/18 17:13 Urine Appearance Clear (CLEAR) 07/23/18 17:13 Urine pH 6.0 (4.7-8.0) 07/23/18 17:13 Ur Specific Stilwell 1.025 (1.005-1.035) 07/23/18 17:13 Urine Protein 30 mg/dL (<30 mg/dL) H 07/23/18 17:13 Urine Glucose (UA) Negative mg/dL (NEGATIVE) 07/23/18 17:13 Urine Ketones Negative mg/dL (NEGATIVE) 07/23/18 17:13 Urine Blood Negative (NEGATIVE) 07/23/18 17:13 Urine Nitrate Negative (NEGATIVE) 07/23/18 17:13 Urine Bilirubin Small (NEGATIVE) H 07/23/18 17:13 Urine Urobilinogen 0.2 E.U./dL (<1 E.U./dL) 07/23/18 17:13 Ur Leukocyte Esterase Trace Ray/uL (NEGATIVE) H 07/23/18 17:13 Urine RBC 0 - 2 /hpf (0-2) 07/23/18 17:13 Urine WBC 2 - 5 /hpf (0-6) 07/23/18 17:13 Ur Epithelial Cells 0 - 2 /hpf (0-5) 07/23/18 17:13 Amorphous Sediment Few 07/23/18 17:13 Urine Bacteria Many (NEG) 07/23/18 17:13 Fine Granular Casts 0 - 2 /hpf (0-2) 07/23/18 17:13 Urine Other Uyeast 07/23/18 17:13 Blood Type A POSITIVE 07/26/18 11:30 Antibody Screen Negative 07/26/18 11:30 Crossmatch See Detail 07/26/18 11:30 BBK History Checked Patient has bt 07/26/18 11:30 Attending/Attestation - Attestation I have personally seen and examined this patient.: Yes I have fully participated in the care of the patient.: Yes I have reviewed all pertinent clinical information, including history, physical exam and plan: Yes Notes (Text): 07/27/18 16:27 Medical record note made by the resident after discussion with my direction and input after the patient was personally seen and examined by me. I have reviewed the chart and agree that the record accurately reflects by personal performance of the history, physical exam, data review, and medical decision-making, in the course for the patient. I have also personally directed the plan of care. 82 year old male with a history of renal cell carcinoma s/p partial nephrectomy 07/2017, stage IV NSCLC (adenocarcinoma) dx 03/2018 on systemic therapy last given about 1 week ago, admitted with vomiting ,diarrhea, dehydration, and pancytopenia.Patient symptoms has improved.Diarrhea is resolved.He is tolerating food.Neutropenia is improving.Patient is afebrile. He is feeling at his base line, denies any suicidal ideation, he is not feeling depress at all. He will be discharged home and will follow up with PCP/ Management plan was discussed in detail with patient. Education was provided.
--- NOTE | 2018-07-27 16:18 | PN ---
DATE: 07/27/2018 SUBJECTIVE: The patient is in bed, in no acute distress, nontoxic. PHYSICAL EXAMINATION: VITAL SIGNS: On exam, temperature is 98, blood pressure is 120/70, respiratory rate of 16. HEENT: Examination of HEENT is unremarkable. NECK: Supple. LUNGS: Have decreased breath sounds. HEART: Normal S1, S2. ABDOMEN: Soft, nontender. LABORATORY DATA: Laboratory examination reveals the patient's white count is 3.4, hemoglobin of 10. Coagulation is noted. Chemistries are reviewed. Urinalysis is noted. Microbiology is noted. The cultures are negative. ASSESSMENT AND PLAN: This is an 82-year-old male who was seen earlier this morning, doing much better with stage IV lung cancer, adenocarcinoma, on chemotherapy, hypertension, bowel obstruction, benign prostatic hypertrophy, hyperlipidemia, renal cancer, severe diarrhea, probably secondary to chemotherapy and pancytopenia. Currently off of antibiotics, afebrile. Korey Vizcaino MD
--- NOTE | 2018-07-27 19:42 | CP.PCM.PN ---
Subjective - Date & Time of Evaluation Date of Evaluation: 07/27/18 Time of Evaluation: 10:00 - Subjective Subjective: Feeling better Objective - Vital Signs/Intake and Output Vital Signs (last 24 hours): Temp Pulse Resp BP Pulse Ox 98.4 F 72 20 140/71 95 07/27/18 08:20 07/27/18 10:41 07/27/18 08:20 07/27/18 10:41 07/27/18 08:20 - Labs Labs: 07/27/18 08:00 07/26/18 07:00 PT 13.5 SECONDS (9.4-12.5) H 07/23/18 15:25 INR 1.18 07/23/18 15:25 APTT 28.2 Seconds (25.1-36.5) 07/23/18 15:25 - Head Exam Head Exam: ATRAUMATIC - Eye Exam Eye Exam: Normal appearance - ENT Exam ENT Exam: Mucous Membranes Dry - Respiratory Exam Respiratory Exam: NORMAL BREATHING PATTERN - Cardiovascular Exam Cardiovascular Exam: +S1, +S2 - GI/Abdominal Exam GI & Abdominal Exam: Normal Bowel Sounds Assessment and Plan (1) Pancytopenia Assessment & Plan: secondary to chemotherapy improved with growth factor and transfusion support outpatient f/u Status: Acute (2) Dehydration Status: Acute (3) Diarrhea Status: Acute (4) Lung cancer Status: Acute
--- NOTE | 2018-07-28 06:22 | CON ---
DATE: 07/26/2018 IDENTIFYING INFORMATION: The patient is an 82-year-old white male who has elicited concern of his treatment team because of an utterance that he wanted to or kill himself; this after being treated now for pulmonary cancer. HISTORY OF PRESENT ILLNESS: The patient has a past medical history as noted and is undergoing a chemoradiation under the care of Dr. Zeng. The patient also has a history of respiratory disorder in the past, has had a left kidney renal tumor removed. He has had gallbladder disease, history of a small-bowel obstruction, and has BPH. He has also had left leg surgery. The patient does not have a psychiatric history. I had met with Mr. Bañuelos and his of riaz. He was able to describe to me course of his lung cancer, his initial reaction to it, his subsequent reaction, his general reactivity to things with he being somewhat demonstrative. His of years was in agreement with his observations and (my own) that his articulations of wanting to were more melodramatic and somewhat histrionic than of actual intent. He has no such history of intent. The patient has a long work history, having worked in [employer] for a number of years. The couple have two children. He is a [employer] of [employer]. He presented as being alert, oriented, looking significantly younger than his stated age, denied feelings of suicidality or homicidality, spoke in a goal-directed and focused manner and with some humor. He has great camilo in his treating physician Dr. Zeng. He is being maintained on Apresoline, Feosol, finasteride, Flomax, Lasix, Lipitor, Norvasc, Trandate. Blood pressure 102/54, pulse 82, temperature 98.1, respiratory rate 20. The patient's white blood count is significantly lowered at 1.2, hemoglobin is also low at 7.8, hematocrit 22.0. His potassium is low at 3.2 and calcium is low at 8.3. I have given the patient my office card but I have also recommended that he consider the possibility of supportive therapy to help him deal with his reaction and his family's reaction to his illness. He, however, does not need a one-on-one sitter DIAGNOSIS: Adjustment disorder with disturbance of mood and conduct. IBETH Theodore PhD [facility] # [id number]
== END 2018-07-27 14:44 | disposition home or self-care (01) | DRG 393 ==
LOC: ED 14:42 → ERH 18:24 → 3RNO 20:17 → OBSVTOIN 07-24 08:37
PROVIDERS: ADMIT Family Medicine; ATTEND Family Medicine
DX: K52.1 Toxic gastroenteritis and colitis (principal); T45.1X5A Adverse effect of antineoplastic and immunosuppressive drugs, initial encounter; D61.810 Antineoplastic chemotherapy induced pancytopenia; C34.90 Malignant neoplasm of unspecified part of unspecified bronchus or lung; C79.51 Secondary malignant neoplasm of bone; C78.7 Secondary malignant neoplasm of liver and intrahepatic bile duct; N39.0 Urinary tract infection, site not specified; E86.0 Dehydration; N40.0 Benign prostatic hyperplasia without lower urinary tract symptoms; I10 Essential (primary) hypertension; F43.25 Adjustment disorder with mixed disturbance of emotions and conduct; E78.5 Hyperlipidemia, unspecified; Z85.528 Personal history of other malignant neoplasm of kidney; Z90.5 Acquired absence of kidney; Z87.891 Personal history of nicotine dependence

== ENCOUNTER 2018-11-13 12:41 | Inpatient (IN) | payer MEDICARE ==
[2018-11-13] MEDS ORDERED: Cefepime IV 2 gm in NS 2 GM/100 ML BAG IVPB STA (14:18)
[2018-11-13] MEDS ORDERED: Vancomycin 1gm in NS 250ml 1 GM/250 ML BAG IVPB STA ×2 (14:18→21:17)
--- NOTE | 2018-11-13 14:21 | ED PDOC ---
Arrival/HPI - General Chief Complaint: Fever Time Seen by Provider: 11/13/18 13:47 Historian: Patient - History of Present Illness Narrative History of Present Illness (Text): 11/13/18 14:17 83 year old male, with past medical history of PMHx: CAD, HTN, HLD, BPH, glaucoma, Lung CA on chemotherapy (history of radiation), presents to the ED accompanied by for evaluation of fever since yesterday. Patient states he was at Dr. Zeng's office for evaluation s/p first chemotherapy when he was made aware of fever and was subsequently referred to the ED for medical evaluation. Patient informs history of fall last night secondary to weakness, with head injury but denies any loss consciousness at the time. Patient denies any other associated somatic complaints. Patient denies any nausea, vomiting, diarrhea, abdominal pain, chest pain, shortness of breath, headache, dizziness, neck pain, back pain or any other complaints. Patient denies any smoking cigarettes or drinking alcohol. Oncologist: Dr. Zeng PMHx: CAD, HTN, HLD, BPH, glaucoma, Lung CA (on chemotherapy, Hx of 8-10 radiation) PSHx: TURP, cholecystectomy, right leg fracture of femur Time/Duration: Prior to Arrival Symptom Onset: Gradual Symptom Course: Unchanged Activities at Onset: Light Context: Other (Referred by Dr. Zeng) Past Medical History - Provider Review Nursing Documentation Reviewed: Yes - Cardiac Hx Hypertension: Yes Hx Pacemaker: No - Pulmonary Hx Respiratory Disorders: Yes - Neurological Hx Neurological Disorder: No - HEENT Hx Cataracts: Yes (BILAT IOLI) - Renal Other/Comment: RENAL TUMOR LEFT - Endocrine/Metabolic Hx Endocrine Disorders: No - Hematological/Oncological Hx Cancer: Yes (Kidney and lung) Hx Chemotherapy: Yes - Integumentary Hx Dermatological Disorder: No - Musculoskeletal/Rheumatological Hx Falls: No - Gastrointestinal Hx Gastrointestinal Disorders: Yes Hx Gall Bladder Disease: Yes Other/Comment: SMALL BOWEL OBSTRUCTION/NO SURGERY NEEDED - Genitourinary/Gynecological Hx Genitourinary Disorders: Yes Hx Prostate Problems: Yes (BPH) - Psychiatric Hx Emotional Abuse: No Hx Physical Abuse: No Hx Substance Use: No - Surgical History Other/Comment: Left leg Sx. Left kidney tumor removal - Anesthesia Hx Anesthesia: Yes Hx Anesthesia Reactions: No Hx Malignant Hyperthermia: No - Suicidal Assessment Feels Threatened In Home Enviroment: No Family/Social History - Physician Review Nursing Documentation Reviewed: Yes Family/Social History: No Known Family HX Smoking Status: Never Smoked Hx Alcohol Use: Yes (GLASS OF RED WINE WITH DINNER) Hx Substance Use: No Allergies/Home Meds Allergies/Adverse Reactions: Allergies No Known Allergies Allergy (Verified 07/23/18 14:56) Home Medications: Home Meds Medication Instructions Recorded Confirmed Furosemide [Lasix] 20 mg PO DAILY 07/19/17 07/23/18 Labetalol [Trandate] 100 mg PO BID 07/19/17 07/23/18 Simvastatin 10 tab PO HS 07/19/17 07/23/18 Tamsulosin HCl [Flomax] 0.4 mg PO DAILY 07/19/17 07/23/18 Timolol 0.5% Ophth [Timoptic 0.5% 1 drop OU DAILY 07/19/17 07/23/18 Ophth Soln] amLODIPine [Norvasc] 5 mg PO HS 07/19/17 07/23/18 Finasteride 1 mg PO DAILY 01/31/18 07/23/18 Sterling-3 Fatty Acids/Fish Oil 1 cap PO BID 01/31/18 07/23/18 [Sterling 3 Fish Oil Softgel] hydrALAZINE [Apresoline] 50 mg PO TID 01/31/18 07/23/18 Review of Systems - Physician Review All systems were reviewed & negative as marked: Yes - Review of Systems Constitutional: Fevers Respiratory: absent: SOB, Cough Cardiovascular: absent: Chest Pain Gastrointestinal: absent: Abdominal Pain, Diarrhea, Nausea, Vomiting Genitourinary Male: absent: Dysuria, Urinary Output Changes Musculoskeletal: absent: Back Pain, Neck Pain Neurological: absent: Headache, Dizziness Psychiatric: absent: Anxiety Physical Exam Vital Signs Reviewed: Yes Vital Signs Temp Pulse Resp BP Pulse Ox 11/13/18 12:41 101.8 F H 74 18 126/70 96 Temperature: Febrile Blood Pressure: Normal Pulse: Regular Respiratory Rate: Normal Appearance: Positive for: Well-Appearing, Non-Toxic, Comfortable Pain Distress: None Mental Status: Positive for: Alert and Oriented X 3 - Systems Exam Head: Present: Normocephalic, Abrasion (Abrasion noted to right forehead) Pupils: Present: PERRL Extroacular Muscles: Present: EOMI Conjunctiva: Present: Normal Ears: Present: Normal, NORMAL TM Mouth: Present: Moist Mucous Membranes Pharnyx: Present: Normal. No: ERYTHEMA, EXUDATE Nose (External): Present: Atraumatic. No: Abrasion, Contusion Nose (Internal): Present: Normal Inspection, No Active Bleeding. No: Septal Hematoma Neck: Present: Normal Range of Motion. No: Meningeal Signs, MIDLINE TENDERNESS, Paraspinal Tenderness Respiratory/Chest: Present: Clear to Auscultation, Good Air Exchange. No: Respiratory Distress, Accessory Muscle Use Cardiovascular: Present: Regular Rate and Rhythm, Normal S1, S2. No: Murmurs Abdomen: No: Tenderness, Distention, Peritoneal Signs Back: Present: Normal Inspection. No: CVA Tenderness, Midline Tenderness Upper Extremity: Present: Normal Inspection, Normal ROM, NORMAL PULSES, Neurovascularly Intact. No: Cyanosis, Edema Lower Extremity: Present: Edema (+1 pitting edema bilaterally), Neurovascularly Intact Neurological: Present: GCS=15, CN II-XII Intact, Speech Normal Skin: Present: Warm, Dry, Normal Color. No: Rashes Psychiatric: Present: Alert, Oriented x 3, Normal Insight, Normal Concentration Medical Decision Making ED Course and Treatment: Impression: 83 year old male presents to the ED for evaluation of fever. Hx of Lung CA on current chemo w/ fever. No current blood thinners, noted to have fallen as well 6+ hours prior, without LOC. No neck pain, Neck clear via Nexus. Neuro exam largely unremarkable, no FND noted. Plan: -- VBG -- EKG -- Labs -- CXR -- Maxipime -- Vancomycin -- Blood Culture -- Urine Culture -- Influenza A/B -- Rapid Strep -- Urinalysis -- Reassess and disposition Prior Visits: Notes and results from previous visits were reviewed. Progress Notes: 11/13/18 15:13 Cefepmine and vanc ordered Febrile, low WBC, Thrombocytopenic CODE SEPSIS ACTIVATED. Pt seeks to be seen by previous admitting physician or Dr. Zeng. Appreciate consult w/ Dr. Zeng: to follow as speciailist Appreciate consult w/ Dr. Collins: to admit to his service, we are to place order for consult w/ Dr. Vizcaino. Rapid flu, strep unremarkable. No difficulty swallowing. Pt notes mild improvement of symptoms. Pending CTH given thrombocytopenia and fall onto head, pt in NAD. - Scribe Statement The provider has reviewed the documentation as recorded by the Scribe Neftaly Sloitario. All medical record entries made by the Scribe were at my direction and personally dictated by me. I have reviewed the chart and agree that the record accurately reflects my personal performance of the history, physical exam, medical decision making, and the department course for this patient. I have also personally directed, reviewed, and agree with the discharge instructions and disposition. Disposition/Present on Arrival - Present on Arrival Any Indicators Present on Arrival: No History of DVT/PE: No History of Uncontrolled Diabetes: No Urinary Catheter: No History of Decub. Ulcer: No History Surgical Site Infection Following: None - Disposition Have Diagnosis and Disposition been Completed?: Yes Diagnosis: Sepsis Disposition Time: 17:01 Patient Problems: Current Active Problems Problem Status Onset Sepsis Acute Condition: STABLE
[2018-11-13 14:48] LABS: VENOUS BLOOD GAS BASE EXCESS 2.2 mmol/L (0.0-2.0); VENOUS BLOOD GAS PO2 48 mm/Hg (30-55); VENOUS BLOOD PH 7.49 (7.32-7.43)
[2018-11-13 15:05] LABS: BASO # 0.01 K/mm3 (0.0-2.0); BASO % 1.1 % (0.0-3.0); HEMOGLOBIN 9.1 g/dL (14.0-18.0); LYMPH # 0.7 (1.2-3.4); LYMPH % 73.4 % (22.0-35.0); MEAN CELL VOLUME 99.3 fl (80.0-105.0); MEAN CORPUSCULAR HEMOGLOBIN 32.4 pg (25.0-35.0); MEAN CORPUSCULAR HGB CONC 32.6 g/dl (31.0-37.0); MONO # 0.2 (0.1-0.6); MONO % 24.5 % (1.0-6.0); RBC 2.81 10^6/uL (3.5-6.1); RED CELL DISTRIBUTION WIDTH 14.9 % (11.5-14.5)
[2018-11-13 15:11] LABS: PLATELET COUNT 32 10^3/uL (120.0-450.0); WHITE BLOOD COUNT 0.9 10^3/uL (4.5-11.0)
[2018-11-13 15:14] LABS: ALB/GLOB RATIO 0.9 (1.1-1.8); ALBUMIN 3.2 g/dL (3.0-4.8); ALT/SGPT 12 U/L (7-56); AST/SGOT 34 U/L (17-59); BLOOD UREA NITROGEN 20 mg/dL (7-21); CALCIUM 8.8 mg/dL (8.4-10.5); GFR NON-AFRICAN AMERICAN > 60; INR 1.35; PARTIAL THROMBOPLASTIN TIME 32.6 Seconds (26.9-38.3)
[2018-11-13 15:33] LABS: INFLUENZA A B NEGATIVE FOR FLU A/B (NEGATIVE)
[2018-11-13 15:52] LABS: ATYPICAL LYMPHOCYTE 18 % (0.0-0.0); LYMPHOCYTE 68 % (22.0-35.0); MONOCYTE 14 % (1.0-6.0); NUCLEATED RED BLOOD CELL 1 %
[2018-11-13 15:53] LABS: PLATELET ESTIMATE LOW (NORMAL)
[2018-11-13 16:34] LABS: PH,URINE 7.5 (4.7-8.0); URINE BILIRUBIN NEGATIVE (NEGATIVE); URINE BLOOD TRACE-LYSED (NEGATIVE); URINE GLUCOSE (UA) NEGATIVE (NEGATIVE); URINE LEUKOCYTE ESTERASE NEGATIVE Leu/uL (NEGATIVE); URINE PROTEIN 30 mg/dL (<30 mg/dL)
[2018-11-13 16:38] LABS: URINE APPEARANCE TURBID (CLEAR); URINE COLOR YELLOW (YELLOW)
[2018-11-13 17:07] LABS: URINE WBC 0 - 2 /hpf (0-6)
--- NOTE | 2018-11-13 18:23 | PCM.SEPTIC ---
Sepsis Progress Note - Reassessment Type Date of Evaluation: 11/13/18 Time of Evaluation: 18:30 Reassessment Type: Non-invasive reassessment - Non Invasive Reassessment Were the most recent vital sign reviewed: Yes Vital Sign (Latest): Temp Pulse Resp BP Pulse Ox 99.3 F 68 20 139/57 L 96 11/13/18 17:40 11/13/18 17:40 11/13/18 17:40 11/13/18 17:40 11/13/18 17:40 Cardiovascular: Yes: Regular Rate, Rhythm, Chest Non Tender. No: Edema, JVD, Bradycardia, Tachycardia, Ectopy, Friction Rub Respiratory: Yes: Normal Breath Sounds. No: Accessory Muscle Use, Rales, Stridor, Wheezing, Respiratory Distress Capillary Refill: Normal (Less than 2 sec) Skin: Normal Color, Warm, Dry
--- NOTE | 2018-11-13 20:31 | CP.PCM.CON ---
History of Present Illness - History of Present Illness History of Present Illness: 83 year old male with a history of renal cell carcinoma s/p partial nephrectomy 07/2017, stage IV NSCLC (adenocarcinoma) dx 03/2018 on systemic therapy last given 1 week ago, admitted with neutropenic fever, pancytopenia, and dehydratio n. The patient received chemotherapy (docetaxel + Cyramza) last week Tuesday and notes to inability to tolerate much PO for 3-4 days. He notes to becoming weak and suffered a fall. He notes to difficulty eating much due to sores on his tongue. He was seen in the office this morning and noted to be dehydrated and febrile (101F). He was referred to the ER immediately given concern for neutropenic fever. He is currently s/p IV antibiotics and IV fluids and notes to feeling better. Past medical history: renal cell carcinoma, stage IV NSCLC lung cancer Past surgical history: partial nephrectomy Family history: Denies hematologic and oncologic problems Social history: Former tobacco abuse, denies alcohol, and illicit drug use. Allergies: NKA Review of systems: All remaining review of systems including HEENT, cardiovascular, respiratory, gastrointestinal, genitourinary, musculoskeletal, dermatologic, neurologic, and psychiatric are negative unless mentioned in the HPI. Past Patient History - Past Medical History & Family History Past Medical History?: Yes - Past Social History Smoking Status: Never Smoked - CARDIAC Hx Hypertension: Yes Hx Pacemaker: No - PULMONARY Hx Respiratory Disorders: Yes - NEUROLOGICAL Hx Neurological Disorder: No - HEENT Hx Cataracts: Yes (BILAT IOLI) - RENAL Other/Comment: RENAL TUMOR LEFT - ENDOCRINE/METABOLIC Hx Endocrine Disorders: No - HEMATOLOGICAL/ONCOLOGICAL Hx Cancer: Yes (Kidney and lung) Hx Chemotherapy: Yes - INTEGUMENTARY Hx Dermatological Problems: No - MUSCULOSKELETAL/RHEUMATOLOGICAL Hx Falls: No - GASTROINTESTINAL Hx Gastrointestinal Disorders: Yes Hx Gall Bladder Disease: Yes Other/Comment: SMALL BOWEL OBSTRUCTION/NO SURGERY NEEDED - GENITOURINARY/GYNECOLOGICAL Hx Genitourinary Disorders: Yes Hx Prostate Problems: Yes (BPH) - PSYCHIATRIC Hx Emotional Abuse: No Hx Physical Abuse: No Hx Substance Use: No - SURGICAL HISTORY Other/Comment: Left leg Sx. Left kidney tumor removal - ANESTHESIA Hx Anesthesia: Yes Hx Anesthesia Reactions: No Hx Malignant Hyperthermia: No Meds Allergies/Adverse Reactions: Allergies Allergy/AdvReac Type Severity Reaction Status Date / Time No Known Allergies Allergy Verified 07/23/18 14:56 - Medications Medications: Current Medications Amlodipine Besylate (Norvasc) 5 mg PO HS [facility] Atorvastatin Calcium (Lipitor) 10 mg PO HS [facility] Ferrous Sulfate (Feosol) 324 mg PO TID [facility] Hydralazine HCl (Apresoline) 50 mg PO TID [facility] Labetalol HCl (Trandate) 100 mg PO BID [facility] Finasteride [ Finasteride] 1 Mg ( Home Med) 1 mg PO DAILY [facility] Tamsulosin HCl (Flomax) 0.4 mg PO DAILY [facility] Timolol Maleate (Timoptic 0.5% Ophth Soln) 1 drop OU DAILY [facility] Physical Exam - Head Exam Head Exam: ATRAUMATIC - Respiratory Exam Respiratory Exam: NORMAL BREATHING PATTERN - Cardiovascular Exam Cardiovascular Exam: +S1, +S2 - GI/Abdominal Exam GI & Abdominal Exam: Normal Bowel Sounds - Neurological Exam Neurological exam: Oriented x3 - Psychiatric Exam Psychiatric exam: Normal Affect, Normal Mood - Skin Skin Exam: Warm Results - Vital Signs Recent Vital Signs: Last Vital Signs Temp 99.3 F 11/13/18 17:40 Pulse 74 11/13/18 19:47 Resp 20 11/13/18 19:47 BP 163/89 H 11/13/18 19:47 Pulse Ox 97 11/13/18 19:47 - Labs Result Diagrams: 11/13/18 14:50 11/13/18 14:50 Labs: Laboratory Results - last 24 hr 11/13/18 11/13/18 11/13/18 14:35 14:50 14:50 WBC 0.9 L* RBC 2.81 L Hgb 9.1 L Hct 27.9 L MCV 99.3 D MCH 32.4 MCHC 32.6 RDW 14.9 H Plt Count 32 L* MPV 10.0 Neut % (Auto) 1.0 L Lymph % (Auto) 73.4 H Petroleum % (Auto) 24.5 H Eos % (Auto) 0.0 L Baso % (Auto) 1.1 Lymph # (Auto) 0.7 L Petroleum # (Auto) 0.2 Eos # (Auto) 0.0 Baso # (Auto) 0.01 Absolute Neuts (auto) 0.01 L Neutrophils % (Manual) TEST NOT PERFORMED Lymphocytes % (Manual) 68 H Atypical Lymphs % 18 H Monocytes % (Manual) 14 H Nucleated RBC % 1 Platelet Evaluation Low PT 15.0 H INR 1.35 APTT 32.6 pO2 48 VBG pH 7.49 H VBG pCO2 33.0 L VBG HCO3 25.1 VBG Total CO2 26.1 VBG O2 Sat (Calc) 91.5 H VBG Base Excess 2.2 H VBG Potassium 4.2 Sodium 137.0 Chloride 109.0 H Glucose 110 Lactate 1.6 FiO2 21.0 Potassium Carbon Dioxide Anion Gap BUN Creatinine Est GFR ( Amer) Est GFR (Non-Af Amer) Random Glucose Calcium Phosphorus Magnesium Total Bilirubin AST ALT Alkaline Phosphatase Total Protein Albumin Globulin Albumin/Globulin Ratio Venous Blood Potassium 4.2 Urine Color Urine Appearance Urine pH Ur Specific [place] Urine Protein Urine Glucose (UA) Urine Ketones Urine Blood Urine Nitrate Urine Bilirubin Urine Urobilinogen Ur Leukocyte Esterase Urine RBC Urine WBC Ur Epithelial Cells Influenza Typ A,B (EIA) Grp A Beta Strep Ag 11/13/18 11/13/18 11/13/18 14:50 14:50 16:00 WBC RBC Hgb Hct MCV MCH MCHC RDW Plt Count MPV Neut % (Auto) Lymph % (Auto) Petroleum % (Auto) Eos % (Auto) Baso % (Auto) Lymph # (Auto) Petroleum # (Auto) Eos # (Auto) Baso # (Auto) Absolute Neuts (auto) Neutrophils % (Manual) Lymphocytes % (Manual) Atypical Lymphs % Monocytes % (Manual) Nucleated RBC % Platelet Evaluation PT INR APTT pO2 VBG pH VBG pCO2 VBG HCO3 VBG Total CO2 VBG O2 Sat (Calc) VBG Base Excess VBG Potassium Sodium 136 Chloride 106 Glucose Lactate FiO2 Potassium 4.3 Carbon Dioxide 25 Anion Gap 9 L BUN 20 Creatinine 1.0 Est GFR ( Amer) > 60 Est GFR (Non-Af Amer) > 60 Random Glucose 109 Calcium 8.8 Phosphorus 2.3 L Magnesium 1.7 Total Bilirubin 0.8 AST 34 ALT 12 Alkaline Phosphatase 87 Total Protein 6.6 Albumin 3.2 Globulin 3.4 Albumin/Globulin Ratio 0.9 L Venous Blood Potassium Urine Color Yellow Urine Appearance Turbid Urine pH 7.5 Ur Specific [place] 1.020 Urine Protein 30 H Urine Glucose (UA) Negative Urine Ketones Negative Urine Blood Trace-lysed H Urine Nitrate Negative Urine Bilirubin Negative Urine Urobilinogen 1.0 H Ur Leukocyte Esterase Negative Urine RBC 5 - 10 H Urine WBC 0 - 2 Ur Epithelial Cells 1 - 3 Influenza Typ A,B (EIA) Negative for flu a/b Grp A Beta Strep Ag Negative Assessment & Plan (1) Neutropenic fever Assessment and Plan: on antibiotics, neutropenic precautions growth factor support in AM Status: Acute (2) Dehydration Assessment and Plan: secondary to chemotherapy and mucositis IV fluids magic mouth wash Status: Acute (3) Mucositis Assessment and Plan: secondary to chemotherapy IV fluids and magic mouth wash Status: Acute (4) Pancytopenia Assessment and Plan: secondary to chemotherapy goal hgb > 7 and plt > 20,000 will start growth factor support in AM; goal ANC > 500 neutropenic precautions Status: Acute (5) Lung cancer Assessment and Plan: stage IV on systemic therapy outpatient treatment Thank you for this interesting consult. Status: Acute
[2018-11-13] MEDS: Meropenem IV 1 gm in NS 1 GM/50 ML BAG IVPB SCH (23:12)
--- NOTE | 2018-11-13 23:58 | CARD ---
APPROVED REPORT Date of service: 11/13/2018 EKG Measurement Heart [id number] <Conclusion> Normal sinus rhythm Minimal voltage criteria for LVH, may be normal variant Borderline ECG
--- NOTE | 2018-11-14 01:15 | HP ---
DATE OF EXAM: 11/13/2018 HISTORY OF PRESENT ILLNESS: I was called to the ER to see him. He is an 83-year-old man who is in the process of going to chemotherapy. He had a fever, was not feeling well. He had been weak. He had a fall, had head injury, no loss of consciousness, comes to the emergency room. An 83-year-old white male with past medical history of CAD, hypertension, high cholesterol, BPH, glaucoma, lung cancer, chemotherapy, postop radiation before, now he is on chemo. Does not drink, does not smoke. No nausea, vomiting, diarrhea, abdominal pain, chest pain, shortness of breath, or headache. He has had a TURP, cholecystectomy, right leg fracture of the femur. His doctor is Dr. Zeng who referred him to the ER. He had a renal tumor on the left side. He had a kidney cancer, lung cancer, chemotherapy presently. He had small bowel obstruction, but no surgery, at one time had gallbladder disease. Left kidney tumor was removed. FAMILY HISTORY: No known family history. SOCIAL HISTORY: No smoking. He does drink a glass of wine with dinner. No substance abuse. MEDICATIONS: On Lasix, Trandate, simvastatin, Flomax, Timoptic, Norvasc, finasteride, fish oil, and Apresoline. ALLERGIES: NO KNOWN DRUG ALLERGIES. REVIEW OF SYSTEMS: He did have fevers. No shortness of breath, no cough, no chest pain or palpitations. No abdominal pain, nausea, vomiting or diarrhea. No problems urinating. No back pain or neck pain. He did have a head bruise from a fall, not anxious. PHYSICAL EXAMINATION: VITAL SIGNS: He has a 101.8 temperature, 74 pulse, 18 respiratory rate, 126/70 blood pressure, 96% on O2 sat. GENERAL: He is well appearing, nontoxic, comfortable, alert and oriented x3. HEENT: He has got an abrasion to his forehead on the right side. Extraocular muscles are intact. Pupils are equal reactive to light. Throat is moist. NECK: Supple. HEART: Regular rate. Normal S1 and S2. LUNGS: Clear to auscultation with decreased breath sounds bilaterally, but no wheezes, rhonchi or rales. ABDOMEN: Soft and nontender. Positive bowel sounds. EXTREMITIES: Can move all four extremities. Trace edema. NEUROLOGIC: GCS was 15. Cranial nerves II through XII grossly intact. Speech is normal. Alert and oriented x3. SKIN: Warm and dry. LABORATORY DATA: He had multiple tests done. He had 0.9 white count, 9.1 hemoglobin, 27.9 hematocrit with 32,000 platelets. INR is 1.35. He has a got lactate of 1.6, sodium 136, potassium 4.3, BUN 20, creatinine 1, GFR is greater than 62, sugar is 109, calcium is 8.8, phosphorus is 2.3, magnesium is 1.7, total bili is 0.8, AST is 34, ALT is 12, alk phos 87, total protein 6.6, albumin is 3.2. Urine is trace. Negative for the flu. Negative for group A beta-strep. He has a CAT scan of the head pending and chest x-ray pending. He is going to be put in the hospital. He has already received vancomycin and cefepime. He is going to have consults with Infectious Disease and Oncology/Hematology. He will be put back on his regular medications. He will be on isolation for his low white count. He has a temperature of 101.8 with 0.9 white count, on chemotherapy for cancer, and he is for sepsis. Wesly Collins DO MTDD
[2018-11-14] MEDS: Meropenem IV 1 gm in NS 1 GM/50 ML BAG IVPB SCH ×3 (07:20→22:51)
[2018-11-14 08:22] LABS: HEMOGLOBIN 8.9 g/dL (14.0-18.0); MEAN CELL VOLUME 98.9 fl (80.0-105.0); MEAN CORPUSCULAR HEMOGLOBIN 33.1 pg (25.0-35.0); MEAN CORPUSCULAR HGB CONC 33.5 g/dl (31.0-37.0); MEAN PLATELET VOLUME 10.5 fl (7.0-11.0); RBC 2.69 10^6/uL (3.5-6.1); RED CELL DISTRIBUTION WIDTH 14.9 % (11.5-14.5)
[2018-11-14 08:31] LABS: ALB/GLOB RATIO 0.9 (1.1-1.8); ALT/SGPT 12 U/L (7-56); AST/SGOT 32 U/L (17-59); BLOOD UREA NITROGEN 17 mg/dL (7-21); CALCIUM 8.4 mg/dL (8.4-10.5); GFR NON-AFRICAN AMERICAN > 60
[2018-11-14 08:32] LABS: PLATELET COUNT 31 10^3/uL (120.0-450.0)
--- NOTE | 2018-11-14 08:38 | RAD ---
Date of service: 11/13/2018 HISTORY: Sepsis Patient COMPARISON: 07/24/2018 FINDINGS: LUNGS: There is linear scarring in the left upper lobe. There is minimal atelectasis at the right lung base as well as a small effusion PLEURA: Small effusion CARDIOVASCULAR: No aortic atherosclerotic calcification present. Mild cardiomegaly no pulmonary vascular congestion. OSSEOUS STRUCTURES: No significant abnormalities. VISUALIZED UPPER ABDOMEN: Normal. OTHER FINDINGS: None. IMPRESSION: There is linear scarring in the left upper lobe. There is minimal atelectasis at the right lung base as well as a small effusion
--- NOTE | 2018-11-14 09:42 | PN ---
DATE: 11/14/2018 SUBJECTIVE: He was still in the emergency room, in the isolation room. He is on Apresoline, Ativan, Feosol, finasteride, Flomax, Granix, Lipitor, Maxipime one dose, he had Merrem, Norvasc, Timoptic, Trandate, Tylenol, vancomycin IV. PHYSICAL EXAMINATION: VITAL SIGNS: He has a 99.3 temperature, 78 pulse, 133/58 blood pressure, 18 respiratory rate, 96% O2 sat on room air. GENERAL: He slept fairly well last night, not great. He is feeling maybe a little bit better than when he came in. HEAD: Atraumatic, normocephalic. HEART: Regular rate. LUNGS: Decreased breath sounds. ABDOMEN: Soft. EXTREMITIES: No edema. He had a fall. He hit his head. PLAN: He had chemotherapy. I reviewed labs from this morning, but the white count was 0.9 yesterday, hemoglobin is 9.1. He is getting chemotherapy. He was seen by Dr. Zeng, his oncologist. He has stage IV cancer, neutropenic, dehydration, all secondary to chemotherapy, pancytopenia. He has renal cell carcinoma, status post partial nephrectomy, stage IV adenocarcinoma, and we are trying to get him help with chemotherapy. Now, he has got possibility of SIRS. He is on antibiotics. Continue aggressive treatment and care by Infectious Disease and by oncologist. Wesly Collins DO
[2018-11-14] MEDS: VANCOMYCIN IVPB SCH ×2 (09:51→22:53)
[2018-11-14] MEDS: SODIUM CHLORIDE 0.9% IVPB SCH ×2 (09:51→22:53)
--- NOTE | 2018-11-14 10:07 | CT ---
Date of service: 11/13/2018 PROCEDURE: CT HEAD WITHOUT CONTRAST. HISTORY: fall COMPARISON: None available. TECHNIQUE: Axial computed tomography images were obtained through the head/brain without intravenous contrast. Radiation dose: Total exam DLP = 1006.23 mGy-cm. This CT exam was performed using one or more of the following dose reduction techniques: Automated exposure control, adjustment of the mA and/or kV according to patient size, and/or use of iterative reconstruction technique. FINDINGS: HEMORRHAGE: No intracranial hemorrhage. BRAIN: No mass effect or edema. Minimal diffuse age-appropriate cerebral atrophy. Mild periventricular white matter lucency consistent with chronic microvascular ischemic change. No evidence of acute infarct. VENTRICLES: Unremarkable. No hydrocephalus. CALVARIUM: Unremarkable. PARANASAL SINUSES: Chronic pansinusitis, mild. MASTOID AIR CELLS: Unremarkable as visualized. No inflammatory changes. OTHER FINDINGS: None. IMPRESSION: No acute intracranial hemorrhage mild age-appropriate atrophy and chronic white matter ischemic change. Mild chronic pansinusitis. The preliminary findings for this examination were reported by [facility] at 7:50 p.m. on 11/13/2018. There is concurrence of this report with the preliminary findings.
--- NOTE | 2018-11-14 14:08 | CP.PCM.CON ---
<Carroll Shrestha - Last Filed: 11/14/18 14:02> History of Present Illness - History of Present Illness History of Present Illness: ID Consult Note 83 year old male with past medical history of CAD, HTN, HLD, renal cell carcinoma s/p partial nephrectomy, and stage IV NSCLC with adenocarcinoma presented to the hospital after fever of 101F at home. Patient underwent last session of chemotherapy last week. Patient called his oncologist who recommended he come to the hospital immediately. Patient admits to inability to eat due to worsening mouth pain from oral ulcers secondary to his chemotherapy regimen. Patient accompanied by at bedside. Denies chest pain, shortness of breath, nausea, vomiting, diarrhea, dysuria, changes in vision. Medical history: CAD, HTN, HLD, renal cell carcinoma s/p partial nephrectomy, and stage IV NSCLC with adenocarcinoma Surgical history: Partial nephrectomy Family history: Denies Social history: Former tobacco abuse, denies alcohol, and illicit drug use. Allergies: NKDA Medications: Reviewed, as per MAR Review of Systems - Review of Systems Review of Systems: 12 point ROS as per HPI, otherwise negative Past Patient History - Past Medical History & Family History Past Medical History?: Yes - Past Social History Smoking Status: Never Smoked - CARDIAC Hx Hypertension: Yes Hx Pacemaker: No - PULMONARY Hx Respiratory Disorders: Yes - NEUROLOGICAL Hx Neurological Disorder: No - HEENT Hx Cataracts: Yes (BILAT IOLI) - RENAL Other/Comment: RENAL TUMOR LEFT - ENDOCRINE/METABOLIC Hx Endocrine Disorders: No - HEMATOLOGICAL/ONCOLOGICAL Hx Cancer: Yes (Kidney and lung) Hx Chemotherapy: Yes - INTEGUMENTARY Hx Dermatological Problems: No - MUSCULOSKELETAL/RHEUMATOLOGICAL Hx Falls: No - GASTROINTESTINAL Hx Gastrointestinal Disorders: Yes Hx Gall Bladder Disease: Yes Other/Comment: SMALL BOWEL OBSTRUCTION/NO SURGERY NEEDED - GENITOURINARY/GYNECOLOGICAL Hx Genitourinary Disorders: Yes Hx Prostate Problems: Yes (BPH) - PSYCHIATRIC Hx Emotional Abuse: No Hx Physical Abuse: No Hx Substance Use: No - SURGICAL HISTORY Other/Comment: Left leg Sx. Left kidney tumor removal - ANESTHESIA Hx Anesthesia: Yes Hx Anesthesia Reactions: No Hx Malignant Hyperthermia: No Meds Allergies/Adverse Reactions: Allergies Allergy/AdvReac Type Severity Reaction Status Date / Time No Known Allergies Allergy Verified 07/23/18 14:56 - Medications Medications: Current Medications Amlodipine Besylate (Norvasc) 5 mg PO HS [facility] Last Admin: 11/13/18 23:11 Dose: 5 mg Atorvastatin Calcium (Lipitor) 10 mg PO HS [facility] Last Admin: 11/13/18 23:11 Dose: 10 mg Al Hydrox/Mg Hydrox/Simethicone 30 ml/Diphenhydramine HCl 75 mg/Lidocaine 30 ml 0 ml PO Q2H PRN PRN Reason: Mouth/Throat Pain Ferrous Sulfate (Feosol) 324 mg PO TID [facility] Last Admin: 11/14/18 13:58 Dose: 324 mg Hydralazine HCl (Apresoline) 50 mg PO TID [facility] Last Admin: 11/14/18 11:38 Dose: 50 mg Meropenem (Merrem Iv 1 Gm Premix) 1 gm in 50 mls @ 100 mls/hr IVPB Q8 [facility]; Protocol Last Admin: 11/14/18 07:20 Dose: 100 mls/hr Vancomycin HCl 1.125 gm/ (Sodium Chloride) 500 mls @ 167 mls/hr IVPB Q12H [facility]; Protocol Last Admin: 11/14/18 09:51 Dose: 167 mls/hr Acyclovir 750 mg/ Sodium (Chloride) 100 mls @ 100 mls/hr IV Q8 [facility]; Protocol Labetalol HCl (Trandate) 100 mg PO BID [facility] Last Admin: 11/14/18 11:38 Dose: 100 mg Finasteride [ Finasteride] 1 Mg ( Home Med) 1 mg PO DAILY [facility] Tamsulosin HCl (Flomax) 0.4 mg PO DAILY [facility] Last Admin: 11/14/18 11:38 Dose: 0.4 mg Timolol Maleate (Timoptic 0.5% [facility]) 1 drop OU DAILY [facility] Last Admin: 11/14/18 11:37 Dose: 1 drop Physical Exam - Constitutional Appears: Toxic, No Acute Distress - Head Exam Head Exam: ATRAUMATIC, NORMAL INSPECTION, NORMOCEPHALIC - Eye Exam Eye Exam: EOMI, Normal appearance - ENT Exam Additional comments: Multiple sores in mouth - Respiratory Exam Respiratory Exam: Clear to Auscultation Bilateral, NORMAL BREATHING PATTERN - Cardiovascular Exam Cardiovascular Exam: RRR, +S1, +S2 - GI/Abdominal Exam GI & Abdominal Exam: Normal Bowel Sounds, Soft. absent: Tenderness - Extremities Exam Extremities exam: Positive for: normal inspection. Negative for: pedal edema - Neurological Exam Neurological exam: Alert Additional comments: Oriented to person - Psychiatric Exam Psychiatric exam: Normal Affect, Normal Mood - Skin Skin Exam: Dry, Intact, Warm Results - Vital Signs Recent Vital Signs: Last Vital Signs Temp 98.8 F 11/14/18 13:11 Pulse 68 11/14/18 13:11 Resp 20 11/14/18 13:11 BP 128/70 11/14/18 13:11 Pulse Ox 99 11/14/18 13:11 - Labs Result Diagrams: 11/14/18 07:45 11/14/18 07:45 Labs: Laboratory Results - last 24 hr 11/13/18 11/13/18 11/13/18 14:35 14:50 14:50 WBC 0.9 L* RBC 2.81 L Hgb 9.1 L Hct 27.9 L MCV 99.3 D MCH 32.4 MCHC 32.6 RDW 14.9 H Plt Count 32 L* MPV 10.0 Neut % (Auto) 1.0 L Lymph % (Auto) 73.4 H [place] % (Auto) 24.5 H Eos % (Auto) 0.0 L Baso % (Auto) 1.1 Lymph # (Auto) 0.7 L [place] # (Auto) 0.2 Eos # (Auto) 0.0 Baso # (Auto) 0.01 Absolute Neuts (auto) 0.01 L Neutrophils % (Manual) TEST NOT PERFORMED Lymphocytes % (Manual) 68 H Atypical Lymphs % 18 H Monocytes % (Manual) 14 H Nucleated RBC % 1 Platelet Evaluation Low PT 15.0 H INR 1.35 APTT 32.6 pO2 48 VBG pH 7.49 H VBG pCO2 33.0 L VBG HCO3 25.1 VBG Total CO2 26.1 VBG O2 Sat (Calc) 91.5 H VBG Base Excess 2.2 H VBG Potassium 4.2 Sodium 137.0 Chloride 109.0 H Glucose 110 Lactate 1.6 FiO2 21.0 Potassium Carbon Dioxide Anion Gap BUN Creatinine Est GFR ( Amer) Est GFR (Non-Af Amer) Random Glucose Calcium Phosphorus Magnesium Total Bilirubin AST ALT Alkaline Phosphatase Total Protein Albumin Globulin Albumin/Globulin Ratio Venous Blood Potassium 4.2 Urine Color Urine Appearance Urine pH Ur Specific [place] Urine Protein Urine Glucose (UA) Urine Ketones Urine Blood Urine Nitrate Urine Bilirubin Urine Urobilinogen Ur Leukocyte Esterase Urine RBC Urine WBC Ur Epithelial Cells Influenza Typ A,B (EIA) Grp A Beta Strep Ag 11/13/18 11/13/18 11/13/18 14:50 14:50 16:00 WBC RBC Hgb Hct MCV MCH MCHC RDW Plt Count MPV Neut % (Auto) Lymph % (Auto) [place] % (Auto) Eos % (Auto) Baso % (Auto) Lymph # (Auto) [place] # (Auto) Eos # (Auto) Baso # (Auto) Absolute Neuts (auto) Neutrophils % (Manual) Lymphocytes % (Manual) Atypical Lymphs % Monocytes % (Manual) Nucleated RBC % Platelet Evaluation PT INR APTT pO2 VBG pH VBG pCO2 VBG HCO3 VBG Total CO2 VBG O2 Sat (Calc) VBG Base Excess VBG Potassium Sodium 136 Chloride 106 Glucose Lactate FiO2 Potassium 4.3 Carbon Dioxide 25 Anion Gap 9 L BUN 20 Creatinine 1.0 Est GFR ( Amer) > 60 Est GFR (Non-Af Amer) > 60 Random Glucose 109 Calcium 8.8 Phosphorus 2.3 L Magnesium 1.7 Total Bilirubin 0.8 AST 34 ALT 12 Alkaline Phosphatase 87 Total Protein 6.6 Albumin 3.2 Globulin 3.4 Albumin/Globulin Ratio 0.9 L Venous Blood Potassium Urine Color Yellow Urine Appearance Turbid Urine pH 7.5 Ur Specific [place] 1.020 Urine Protein 30 H Urine Glucose (UA) Negative Urine Ketones Negative Urine Blood Trace-lysed H Urine Nitrate Negative Urine Bilirubin Negative Urine Urobilinogen 1.0 H Ur Leukocyte Esterase Negative Urine RBC 5 - 10 H Urine WBC 0 - 2 Ur Epithelial Cells 1 - 3 Influenza Typ A,B (EIA) Negative for flu a/b Grp A Beta Strep Ag Negative 11/14/18 11/14/18 07:45 07:45 WBC 1.0 L* RBC 2.69 L Hgb 8.9 L Hct 26.6 L MCV 98.9 MCH 33.1 MCHC 33.5 RDW 14.9 H Plt Count 31 L* MPV 10.5 Neut % (Auto) Lymph % (Auto) [place] % (Auto) Eos % (Auto) Baso % (Auto) Lymph # (Auto) [place] # (Auto) Eos # (Auto) Baso # (Auto) Absolute Neuts (auto) Neutrophils % (Manual) Lymphocytes % (Manual) Atypical Lymphs % Monocytes % (Manual) Nucleated RBC % Platelet Evaluation PT INR APTT pO2 VBG pH VBG pCO2 VBG HCO3 VBG Total CO2 VBG O2 Sat (Calc) VBG Base Excess VBG Potassium Sodium 137 Chloride 109 H Glucose Lactate FiO2 Potassium 3.9 Carbon Dioxide 23 Anion Gap 9 L BUN 17 Creatinine 0.9 Est GFR ( Amer) > 60 Est GFR (Non-Af Amer) > 60 Random Glucose 97 Calcium 8.4 Phosphorus Magnesium Total Bilirubin 0.8 AST 32 ALT 12 Alkaline Phosphatase 79 Total Protein 6.1 Albumin 3.0 Globulin 3.2 Albumin/Globulin Ratio 0.9 L Venous Blood Potassium Urine Color Urine Appearance Urine pH Ur Specific [place] Urine Protein Urine Glucose (UA) Urine Ketones Urine Blood Urine Nitrate Urine Bilirubin Urine Urobilinogen Ur Leukocyte Esterase Urine RBC Urine WBC Ur Epithelial Cells Influenza Typ A,B (EIA) Grp A Beta Strep Ag Assessment & Plan - Assessment and Plan (Free Text) Plan: Neutropenic fever likely secondary to chemotherapy Hx of renal cell carcinoma Hx of NSCLC with adenocarcinoma Hx of CAD Hx of HTN Hx of HLD Plan Head CT reviewed Will start neutropenic precautions Start Vancomycin and Merrem Will also add Acyclovir as patient is high risk for Herpes Follow up blood and urine cultures Follow up Oncology recommendations Continue to monitor closely Fady, PGY-3 <Avila Velazco S - Last Filed: 11/14/18 16:10> Meds - Medications Medications: Current Medications Amlodipine Besylate (Norvasc) 5 mg PO HS [facility] Last Admin: 11/13/18 23:11 Dose: 5 mg Atorvastatin Calcium (Lipitor) 10 mg PO HS [facility] Last Admin: 11/13/18 23:11 Dose: 10 mg Al Hydrox/Mg Hydrox/Simethicone 30 ml/Diphenhydramine HCl 75 mg/Lidocaine 30 ml 0 ml PO Q2H PRN PRN Reason: Mouth/Throat Pain Ferrous Sulfate (Feosol) 324 mg PO TID [facility] Last Admin: 11/14/18 13:58 Dose: 324 mg Hydralazine HCl (Apresoline) 50 mg PO TID [facility] Last Admin: 11/14/18 14:27 Dose: 50 mg Meropenem (Merrem Iv 1 Gm Premix) 1 gm in 50 mls @ 100 mls/hr IVPB Q8 [facility]; Protocol Last Admin: 11/14/18 15:49 Dose: 100 mls/hr Vancomycin HCl 1.125 gm/ (Sodium Chloride) 500 mls @ 167 mls/hr IVPB Q12H [facility]; Protocol Last Admin: 11/14/18 09:51 Dose: 167 mls/hr Acyclovir 750 mg/ Sodium (Chloride) 100 mls @ 100 mls/hr IV Q8 [facility]; Protocol Last Admin: 11/14/18 14:26 Dose: 100 mls/hr Labetalol HCl (Trandate) 100 mg PO BID [facility] Last Admin: 11/14/18 11:38 Dose: 100 mg Finasteride [ Finasteride] 1 Mg ( Home Med) 1 mg PO DAILY [facility] Tamsulosin HCl (Flomax) 0.4 mg PO DAILY [facility] Last Admin: 11/14/18 11:38 Dose: 0.4 mg Timolol Maleate (Timoptic 0.5% [facility]) 1 drop OU DAILY [facility] Last Admin: 11/14/18 11:37 Dose: 1 drop Results - Vital Signs Recent Vital Signs: Last Vital Signs Temp 98.8 F 11/14/18 13:11 Pulse 72 11/14/18 14:40 Resp 20 11/14/18 14:40 BP 138/71 11/14/18 14:00 Pulse Ox 97 11/14/18 14:00 - Labs Result Diagrams: 11/14/18 07:45 11/14/18 07:45 Labs: Laboratory Results - last 24 hr 11/13/18 11/13/18 11/14/18 14:35 16:00 07:45 WBC 1.0 L* RBC 2.69 L Hgb 8.9 L Hct 26.6 L MCV 98.9 MCH 33.1 MCHC 33.5 RDW 14.9 H Plt Count 31 L* MPV 10.5 pO2 48 VBG pH 7.49 H VBG pCO2 33.0 L VBG HCO3 25.1 VBG Total CO2 26.1 VBG O2 Sat (Calc) 91.5 H VBG Base Excess 2.2 H VBG Potassium 4.2 Sodium 137.0 Chloride 109.0 H Glucose 110 Lactate 1.6 FiO2 21.0 Potassium Carbon Dioxide Anion Gap BUN Creatinine Est GFR ( Amer) Est GFR (Non-Af Amer) Random Glucose Calcium Total Bilirubin AST ALT Alkaline Phosphatase Total Protein Albumin Globulin Albumin/Globulin Ratio Venous Blood Potassium 4.2 Urine Color Yellow Urine Appearance Turbid Urine pH 7.5 Ur Specific [place] 1.020 Urine Protein 30 H Urine Glucose (UA) Negative Urine Ketones Negative Urine Blood Trace-lysed H Urine Nitrate Negative Urine Bilirubin Negative Urine Urobilinogen 1.0 H Ur Leukocyte Esterase Negative Urine RBC 5 - 10 H Urine WBC 0 - 2 Ur Epithelial Cells 1 - 3 11/14/18 07:45 WBC RBC Hgb Hct MCV MCH MCHC RDW Plt Count MPV pO2 VBG pH VBG pCO2 VBG HCO3 VBG Total CO2 VBG O2 Sat (Calc) VBG Base Excess VBG Potassium Sodium 137 Chloride 109 H Glucose Lactate FiO2 Potassium 3.9 Carbon Dioxide 23 Anion Gap 9 L BUN 17 Creatinine 0.9 Est GFR ( Amer) > 60 Est GFR (Non-Af Amer) > 60 Random Glucose 97 Calcium 8.4 Total Bilirubin 0.8 AST 32 ALT 12 Alkaline Phosphatase 79 Total Protein 6.1 Albumin 3.0 Globulin 3.2 Albumin/Globulin Ratio 0.9 L Venous Blood Potassium Urine Color Urine Appearance Urine pH Ur Specific [place] Urine Protein Urine Glucose (UA) Urine Ketones Urine Blood Urine Nitrate Urine Bilirubin Urine Urobilinogen Ur Leukocyte Esterase Urine RBC Urine WBC Ur Epithelial Cells Assessment & Plan - Assessment and Plan (Free Text) Plan: Infectious diseases Attending Physician Attestation Patient seen and examined, discussed with associate medical director. I have reviewed the patient's history of present illness, past medical, social, personal and family histories, pertinent physical exam findings, course so far in this hospital admission, pertinent laboratory and imaging results. I agree with the above findings, assessment and plan. In addition, patient with sepsis with febrile neutropenia - started Vancomycin and Merrem and will follow up blood cx, urine cx, CXR and will monitor clinically. Rapid flu test is negative and patient does not present with flu-like illness.
[2018-11-14 15:48] VITALS: BMI 25.8
--- NOTE | 2018-11-14 22:23 | CP.PCM.PN ---
Subjective - Date & Time of Evaluation Date of Evaluation: 11/14/18 Time of Evaluation: 17:00 - Subjective Subjective: Has pain in mouth when eating. Objective - Vital Signs/Intake and Output Vital Signs (last 24 hours): Temp Pulse Resp BP Pulse Ox 98.1 F 81 20 115/40 L 97 11/14/18 19:10 11/14/18 19:18 11/14/18 14:40 11/14/18 19:21 11/14/18 14:00 - Medications Medications: Current Medications Amlodipine Besylate (Norvasc) 5 mg PO HS [facility] Last Admin: 11/13/18 23:11 Dose: 5 mg Atorvastatin Calcium (Lipitor) 10 mg PO HS [facility] Last Admin: 11/13/18 23:11 Dose: 10 mg Al Hydrox/Mg Hydrox/Simethicone 30 ml/Diphenhydramine HCl 75 mg/Lidocaine 30 ml 0 ml PO Q2H PRN PRN Reason: Mouth/Throat Pain Ferrous Sulfate (Feosol) 324 mg PO TID [facility] Last Admin: 11/14/18 13:58 Dose: 324 mg Hydralazine HCl (Apresoline) 50 mg PO TID [facility] Last Admin: 11/14/18 19:18 Dose: Not Given Meropenem (Merrem Iv 1 Gm Premix) 1 gm in 50 mls @ 100 mls/hr IVPB Q8 [facility]; Protocol Last Admin: 11/14/18 15:49 Dose: 100 mls/hr Vancomycin HCl 1.125 gm/ (Sodium Chloride) 500 mls @ 167 mls/hr IVPB Q12H [facility]; Protocol Last Admin: 11/14/18 09:51 Dose: 167 mls/hr Acyclovir 750 mg/ Sodium (Chloride) 100 mls @ 100 mls/hr IV Q8 [facility]; Protocol Last Admin: 11/14/18 14:26 Dose: 100 mls/hr Labetalol HCl (Trandate) 100 mg PO BID [facility] Last Admin: 11/14/18 19:21 Dose: Not Given Finasteride [ Finasteride] 1 Mg ( Home Med) 1 mg PO DAILY [facility] Tamsulosin HCl (Flomax) 0.4 mg PO DAILY [facility] Last Admin: 11/14/18 11:38 Dose: 0.4 mg Timolol Maleate (Timoptic 0.5% [facility]) 1 drop OU DAILY [facility] Last Admin: 11/14/18 11:37 Dose: 1 drop - Labs Labs: 11/14/18 07:45 11/14/18 07:45 PT 15.0 SECONDS (9.4-12.5) H 11/13/18 14:50 INR 1.35 11/13/18 14:50 APTT 32.6 Seconds (26.9-38.3) 11/13/18 14:50 - Head Exam Head Exam: ATRAUMATIC - Eye Exam Eye Exam: Normal appearance - ENT Exam ENT Exam: Mucous Membranes Dry - Respiratory Exam Respiratory Exam: NORMAL BREATHING PATTERN - Cardiovascular Exam Cardiovascular Exam: +S1, +S2 - GI/Abdominal Exam GI & Abdominal Exam: Normal Bowel Sounds Assessment and Plan (1) Neutropenic fever Assessment & Plan: on antibiotics neutropenic precautions growth factor support PRN Status: Acute (2) Dehydration Assessment & Plan: IV fluids magic mouth wash Status: Acute (3) Mucositis Assessment & Plan: magic mouth wash IV fluids Status: Acute (4) Pancytopenia Assessment & Plan: secondary to chemotherapy neutropenic precautions growth factor support Status: Acute (5) Lung cancer Assessment & Plan: stage IV outpatient chemotherapy Status: Acute
[2018-11-15] MEDS: Meropenem IV 1 gm in NS 1 GM/50 ML BAG IVPB SCH ×2 (05:35→22:14)
[2018-11-15 06:25] LABS: HEMOGLOBIN 8.9 g/dL (14.0-18.0); MEAN CELL VOLUME 98.9 fl (80.0-105.0); MEAN CORPUSCULAR HEMOGLOBIN 32.7 pg (25.0-35.0); MEAN CORPUSCULAR HGB CONC 33.1 g/dl (31.0-37.0); MEAN PLATELET VOLUME 11.2 fl (7.0-11.0); RBC 2.72 10^6/uL (3.5-6.1); RED CELL DISTRIBUTION WIDTH 15.1 % (11.5-14.5)
[2018-11-15 06:40] LABS: PLATELET COUNT 44 10^3/uL (120.0-450.0)
[2018-11-15 07:28] LABS: ALB/GLOB RATIO 0.9 (1.1-1.8); ALBUMIN 2.7 g/dL (3.0-4.8); CALCIUM 8.3 mg/dL (8.4-10.5)
[2018-11-15] MEDS: FINASTERIDE 1 MG PO SCH (10:35)
[2018-11-15] MEDS: SODIUM CHLORIDE 0.9% IVPB SCH (10:36)
[2018-11-15] MEDS: Sodium Chloride 0.45% 1,000 ML IV SCH (10:36)
[2018-11-15] MEDS: VANCOMYCIN IVPB SCH (10:36)
--- NOTE | 2018-11-15 12:10 | PN ---
DATE: 11/15/2018 SUBJECTIVE: He is doing better today. I think the IV antibiotics is helping him nicely. He is in good spirit. He has got an appetite. I would like to get him out of bed to chair. He will get physical therapy. He has been seen by the Hematology/Oncologist and Infectious Disease. PHYSICAL EXAMINATION VITAL SIGNS: He has a 98 temperature, 70 pulse, 109/43 blood pressure, 18 respiratory rate and oxygen saturation is 99%. HEENT: His head is traumatic normocephalic. Throat is moist. NECK: Supple. HEART: Regular rate. LUNGS: Decreased breath sounds, but clear. ABDOMEN: Soft. EXTREMITIES: No edema. LABORATORY DATA: He has a 2 white count. He is doing much better, it is coming up nicely, hemoglobin 8.9, hematocrit 26.9 and platelets of 44, all improving. status post chemotherapy. He has a 139 sodium, potassium 3.6, BUN 26, creatinine 1.9 that one up a little bit, we gave him some IV fluids, sugar is 81, calcium is 8.3, total bilirubin is 0.8, AST is 35, ALT is 19 and alkaline phosphatase 75. So he has a neutropenic fever. He is being seen by Infectious Disease. He is on the antibiotics. I will check his labs tomorrow, increase his IV rate. Get him out of bed to chair and physical therapy. Wesly Collins DO MTDD
--- NOTE | 2018-11-15 14:06 | CP.PCM.PN ---
<Carroll Shrestha - Last Filed: 11/15/18 14:03> Subjective - Date & Time of Evaluation Date of Evaluation: 11/15/18 Time of Evaluation: 09:00 - Subjective Subjective: ID Progress Note Patient seen and examined at bedside. Patient more alert today, but admits to being mildly confused. No fevers overnight. Objective - Vital Signs/Intake and Output Vital Signs (last 24 hours): Temp Pulse Resp BP Pulse Ox 98 F 74 18 123/58 L 99 11/15/18 05:39 11/15/18 10:35 11/15/18 05:39 11/15/18 10:35 11/14/18 19:50 Intake and Output: 11/15/18 11/15/18 06:59 18:59 Intake Total 120 Output Total 250 Balance -130 - Medications Medications: Current Medications Amlodipine Besylate (Norvasc) 5 mg PO HS [facility] Last Admin: 11/14/18 22:50 Dose: 5 mg Atorvastatin Calcium (Lipitor) 10 mg PO HS [facility] Last Admin: 11/14/18 22:50 Dose: 10 mg Al Hydrox/Mg Hydrox/Simethicone 30 ml/Diphenhydramine HCl 75 mg/Lidocaine 30 ml 0 ml PO Q2H PRN PRN Reason: Mouth/Throat Pain Ferrous Sulfate (Feosol) 324 mg PO TID [facility] Last Admin: 11/15/18 10:35 Dose: 324 mg Hydralazine HCl (Apresoline) 50 mg PO TID [facility] Last Admin: 11/15/18 10:35 Dose: 50 mg Acyclovir 750 mg/ Sodium (Chloride) 100 mls @ 100 mls/hr IV Q8 [facility]; Protocol Last Admin: 11/15/18 06:05 Dose: 100 mls/hr Sodium Chloride (Sodium Chloride 0.45%) 1,000 mls @ 60 mls/hr IV .[id number] [facility] Last Admin: 11/15/18 10:36 Dose: 60 mls/hr Meropenem (Merrem Iv 1 Gm Premix) 1 gm in 50 mls @ 100 mls/hr IVPB Q12 [facility]; Protocol Labetalol HCl (Trandate) 100 mg PO BID [facility] Last Admin: 11/15/18 10:35 Dose: 100 mg Finasteride [ Finasteride] 1 Mg ( Home Med) 1 mg PO DAILY [facility] Tamsulosin HCl (Flomax) 0.4 mg PO DAILY [facility] Last Admin: 11/15/18 10:35 Dose: 0.4 mg Timolol Maleate (Timoptic 0.5% Ophth Soln) 1 drop OU DAILY [facility] Last Admin: 11/15/18 10:48 Dose: 1 drop - Labs Labs: 11/15/18 05:45 11/15/18 05:45 PT 15.0 SECONDS (9.4-12.5) H 11/13/18 14:50 INR 1.35 11/13/18 14:50 APTT 32.6 Seconds (26.9-38.3) 11/13/18 14:50 - Constitutional Appears: Non-toxic, No Acute Distress - Head Exam Head Exam: ATRAUMATIC, NORMAL INSPECTION, NORMOCEPHALIC - ENT Exam ENT Exam: Mucous Membranes Moist - Respiratory Exam Respiratory Exam: Clear to Ausculation Bilateral, NORMAL BREATHING PATTERN - Cardiovascular Exam Cardiovascular Exam: RRR, +S1 - GI/Abdominal Exam GI & Abdominal Exam: Soft, Normal Bowel Sounds. absent: Tenderness - Extremities Exam Extremities Exam: absent: Pedal Edema - Neurological Exam Neurological Exam: Alert, Awake, Oriented x3 - Psychiatric Exam Psychiatric exam: Normal Affect, Normal Mood - Skin Skin Exam: Dry, Intact, Warm Assessment and Plan - Assessment and Plan (Free Text) Plan: Neutropenic fever MARIBETH Hx of renal cell carcinoma Hx of NSCLC with adenocarcinoma Hx of CAD Hx of HTN Hx of HLD Plan Stop Vancomycin due to MARIBETH Will order Vancomycin random level Will change Merrem to Q12h Continue Acyclovir Continue neutropenic precautions Blood and urine cultures negative Follow up Oncology recommendations Continue to monitor closely Fady, PGY-3 <Avila Velazco - Last Filed: 11/15/18 15:36> Objective - Vital Signs/Intake and Output Vital Signs (last 24 hours): Temp Pulse Resp BP Pulse Ox 98.4 F 71 20 118/62 99 11/15/18 12:00 11/15/18 14:13 11/15/18 12:00 11/15/18 14:13 11/14/18 19:50 Intake and Output: 11/15/18 11/15/18 06:59 18:59 Intake Total 120 Output Total 250 Balance -130 - Medications Medications: Current Medications Amlodipine Besylate (Norvasc) 5 mg PO HS [facility] Last Admin: 11/14/18 22:50 Dose: 5 mg Atorvastatin Calcium (Lipitor) 10 mg PO HS [facility] Last Admin: 11/14/18 22:50 Dose: 10 mg Al Hydrox/Mg Hydrox/Simethicone 30 ml/Diphenhydramine HCl 75 mg/Lidocaine 30 ml 0 ml PO Q2H PRN PRN Reason: Mouth/Throat Pain Ferrous Sulfate (Feosol) 324 mg PO TID [facility] Last Admin: 11/15/18 14:13 Dose: 324 mg Hydralazine HCl (Apresoline) 50 mg PO TID [facility] Last Admin: 11/15/18 14:13 Dose: 50 mg Acyclovir 750 mg/ Sodium (Chloride) 100 mls @ 100 mls/hr IV Q8 [facility]; Protocol Last Admin: 11/15/18 14:12 Dose: 100 mls/hr Sodium Chloride (Sodium Chloride 0.45%) 1,000 mls @ 60 mls/hr IV .[id number] [facility] Last Admin: 11/15/18 10:36 Dose: 60 mls/hr Meropenem (Merrem Iv 1 Gm Premix) 1 gm in 50 mls @ 100 mls/hr IVPB Q12 [facility]; Protocol Labetalol HCl (Trandate) 100 mg PO BID [facility] Last Admin: 11/15/18 10:35 Dose: 100 mg Finasteride [ Finasteride] 1 Mg ( Home Med) 1 mg PO DAILY [facility] Quetiapine Fumarate (Seroquel) 12.5 mg PO HS PRN; Protocol PRN Reason: Agitation Tamsulosin HCl (Flomax) 0.4 mg PO DAILY [facility] Last Admin: 11/15/18 10:35 Dose: 0.4 mg Timolol Maleate (Timoptic 0.5% Ophth Soln) 1 drop OU DAILY [facility] Last Admin: 11/15/18 10:48 Dose: 1 drop - Labs Labs: 11/15/18 05:45 11/15/18 05:45 PT 15.0 SECONDS (9.4-12.5) H 11/13/18 14:50 INR 1.35 11/13/18 14:50 APTT 32.6 Seconds (26.9-38.3) 11/13/18 14:50 Assessment and Plan - Assessment and Plan (Free Text) Plan: Infectious diseases Attending Physician Attestation Patient seen and examined, discussed with regional medical director. I have reviewed the patient's history of present illness, past medical, social, personal and family histories, pertinent physical exam findings, course so far in this hospital admission, pertinent laboratory and imaging results. I agree with the above findings, assessment and plan. In addition, will hold Vancomycin because of a cute renal failure and continue renally-adjusted Merrem for sepsis due to febrile neutropenia. So far cultures are negative, will continue antibiotics until he is not neutropenic anymore but will still look for a possible source.
--- NOTE | 2018-11-15 15:57 | CP.PCM.PCO ---
Addendum Addendum: 11/15/18 15:53 consult was placed at 4:45am 11/14/18, pt staid in ED during this senior grant writer morning round, AMS/delirious patient requires medical attention at the first place, moreover it is no requirements for delirious patient see psychiatrist at ED setting. at the same time this senior grant writer is not obligated to see pt in ED if pt is not medically cleared. pt was seen today 11/15/18 at 10 am.
--- NOTE | 2018-11-15 21:19 | CON ---
DATE OF CONSULTATION: 11/15/2018 HISTORY OF PRESENT ILLNESS: In short, the patient is an 83-year-old male with multiple medical issues including lung cancer on chemotherapy. The patient was brought in after the patient was referred by the patient's oncologist, Dr. Zeng, for evaluation of fever and altered mental status. Psych consult was called for evaluation of altered mental status and consultation was placed in the emergency room, but based on presentation pt did not required to have immediate psychiatric evaluation, because the patient obviously was in delirium stage as well as medical attention was priority. The patient was seen today. The patient presented to be sleepy, easily arousable. The patient is obviously confused. The patient has tendency of confabulates. The patient was not aware of how he ended up in the hospital, majority of the information was obtained from the patient's , who is next to him, pt gave permission to talk to her. Pt's whife name is Asuncion Bañuelos. As per Asuncion, the patient was acting bizarre, and the patient had some visual hallucinations, started to take something from the air, picking something from the clothing, and this is acute deviation from the patient's mental status. The patient's said that his oncologist send the patient for evaluation because he had fever. At present moment, the patient is on antibiotics and on neutropenic precaution. As per Asuncion, the patient does not have history of depression, anxiety, or any psychiatric illnesses. This justowriter operator educated the family and the patient himself about Seroquel, about delirium, about treatment options. They were in agreement with the plan and willing this justowriter operator to initiate Seroquel. This justowriter operator reviewed vital signs. PHYSICAL EXAMINATION: VITAL SIGNS: Vital signs seemed to be stable. Temperature 98.4, pulse is 71, blood pressure 118/62, respirations 20. MEDICATIONS: Reviewed. The patient is on labetalol, meropenem, Seroquel will be started at the nighttime 12.5 mg. The patient is on Flomax, timolol. The patient is on Feosol, Lopressor, Norvasc, as well as acyclovir. LABORATORY DATA: Labs reviewed. White blood cells were critically low at 0.9, but is going up to 2. The patient is on neutropenic precautions. Labs reviewed. Urinalysis reviewed. Serology reviewed. MENTAL STATUS EXAMINATION: The patient appears to be sleepy, easily arousable. Speech was at times over inclusive, but the patient had low volume, underproductive speech. Mood described as okay. Affect was flat. Thought process circumstantial, tangential and confabulations. Thought content, the patient denied visual, auditory, or tactile hallucinations. Denied thoughts of harming himself or others. Denied intent or plan. Last hallucinations were prior to coming to the hospital. Insight and judgment seemed to be limited, but improving. Impulses are well controlled. IMPRESSION: Most likely, the patient is in delirium stage, which is related to a lot of medical condition, possible infection, neutropenia. The patient was on chemotherapy. The patient also has coronary artery disease, hypertension, dyslipidemia, glaucoma. See medical team notes for more detailed information. PLAN: Seroquel was started. Treatment plan was discussed. Risks, benefits, and alternatives were discussed with the patient and the family. We will follow up and advise accordingly. Thank you very much for letting me participate in the care of your patient. Dilia Laureano MD MTDD
--- NOTE | 2018-11-15 21:24 | CP.PCM.PN ---
Subjective - Date & Time of Evaluation Date of Evaluation: 11/15/18 Time of Evaluation: 13:00 - Subjective Subjective: More alert today, trying to eat more Objective - Vital Signs/Intake and Output Vital Signs (last 24 hours): Temp Pulse Resp BP Pulse Ox 98.2 F 73 20 99/56 L 99 11/15/18 18:00 11/15/18 18:14 11/15/18 18:00 11/15/18 18:14 11/14/18 19:50 Intake and Output: 11/15/18 11/16/18 18:59 06:59 Intake Total 1080 598 Balance 1080 598 - Medications Medications: Current Medications Amlodipine Besylate (Norvasc) 5 mg PO HS [facility] Last Admin: 11/14/18 22:50 Dose: 5 mg Atorvastatin Calcium (Lipitor) 10 mg PO HS [facility] Last Admin: 11/14/18 22:50 Dose: 10 mg Al Hydrox/Mg Hydrox/Simethicone 30 ml/Diphenhydramine HCl 75 mg/Lidocaine 30 ml 0 ml PO Q2H PRN PRN Reason: Mouth/Throat Pain Ferrous Sulfate (Feosol) 324 mg PO TID [facility] Last Admin: 11/15/18 18:15 Dose: 324 mg Hydralazine HCl (Apresoline) 50 mg PO TID [facility] Last Admin: 11/15/18 18:13 Dose: Not Given Acyclovir 750 mg/ Sodium (Chloride) 100 mls @ 100 mls/hr IV Q8 [facility]; Protocol Last Admin: 11/15/18 14:12 Dose: 100 mls/hr Sodium Chloride (Sodium Chloride 0.45%) 1,000 mls @ 60 mls/hr IV .[id number] [facility] Last Admin: 11/15/18 10:36 Dose: 60 mls/hr Meropenem (Merrem Iv 1 Gm Premix) 1 gm in 50 mls @ 100 mls/hr IVPB Q12 [facility]; Protocol Labetalol HCl (Trandate) 100 mg PO BID [facility] Last Admin: 11/15/18 18:14 Dose: Not Given Finasteride [ Finasteride] 1 Mg ( Home Med) 1 mg PO DAILY [facility] Last Admin: 11/15/18 10:35 Dose: Not Given Quetiapine Fumarate (Seroquel) 12.5 mg PO HS PRN; Protocol PRN Reason: Agitation Tamsulosin HCl (Flomax) 0.4 mg PO DAILY [facility] Last Admin: 11/15/18 10:35 Dose: 0.4 mg Timolol Maleate (Timoptic 0.5% Ophth Soln) 1 drop OU DAILY [facility] Last Admin: 11/15/18 10:48 Dose: 1 drop - Labs Labs: 11/15/18 05:45 11/15/18 05:45 PT 15.0 SECONDS (9.4-12.5) H 11/13/18 14:50 INR 1.35 11/13/18 14:50 APTT 32.6 Seconds (26.9-38.3) 11/13/18 14:50 - Head Exam Head Exam: ATRAUMATIC - Eye Exam Eye Exam: Normal appearance - ENT Exam ENT Exam: Mucous Membranes Dry - Respiratory Exam Respiratory Exam: NORMAL BREATHING PATTERN - Cardiovascular Exam Cardiovascular Exam: +S1, +S2 - GI/Abdominal Exam GI & Abdominal Exam: Normal Bowel Sounds Assessment and Plan (1) Neutropenic fever Assessment & Plan: on antibiotics neutropenic precautions s/p growth factor support Status: Acute (2) Dehydration Assessment & Plan: IV fluids Status: Acute (3) Mucositis Assessment & Plan: magic mouth wash IV fluids Status: Acute (4) Pancytopenia Assessment & Plan: improving secondary to chemotherapy s/p growth factor support neutropenic precautions Status: Acute (5) Lung cancer Assessment & Plan: stage IV outpatient treatment Status: Acute
[2018-11-16] MEDS: Sodium Chloride 0.45% 1,000 ML IV SCH (02:27)
[2018-11-16 07:12] LABS: BASO # 0.01 K/mm3 (0.0-2.0); BASO % 0.2 % (0.0-3.0); EOS % 0.4 % (1.5-5.0); LYMPH # 0.9 (1.2-3.4); LYMPH % 18.9 % (22.0-35.0); MEAN CELL VOLUME 97.4 fl (80.0-105.0); MEAN CORPUSCULAR HEMOGLOBIN 32.8 pg (25.0-35.0); MEAN CORPUSCULAR HGB CONC 33.7 g/dl (31.0-37.0); MONO # 0.9 (0.1-0.6); MONO % 18.1 % (1.0-6.0); RBC 2.74 10^6/uL (3.5-6.1); RED CELL DISTRIBUTION WIDTH 15.5 % (11.5-14.5); WHITE BLOOD COUNT 4.8 10^3/uL (4.5-11.0)
[2018-11-16 07:47] LABS: ALB/GLOB RATIO 0.9 (1.1-1.8); ALBUMIN 2.6 g/dL (3.0-4.8); CALCIUM 8.2 mg/dL (8.4-10.5)
--- NOTE | 2018-11-16 09:41 | CP.PCM.PN ---
<Carroll Shrestha - Last Filed: 11/16/18 12:29> Subjective - Date & Time of Evaluation Date of Evaluation: 11/16/18 Time of Evaluation: 07:10 - Subjective Subjective: ID Progress Note Patient seen and examined at bedside. Patient states he is still confused at times. No fevers. Objective - Vital Signs/Intake and Output Vital Signs (last 24 hours): Temp Pulse Resp BP Pulse Ox 97.3 F L 78 18 131/62 96 11/16/18 06:00 11/16/18 06:00 11/16/18 06:00 11/16/18 06:00 11/16/18 06:00 Intake and Output: 11/16/18 11/16/18 06:59 18:59 Intake Total 1658 Output Total 200 Balance 1458 - Medications Medications: Current Medications Amlodipine Besylate (Norvasc) 5 mg PO HS [facility] Last Admin: 11/15/18 22:15 Dose: Not Given Atorvastatin Calcium (Lipitor) 10 mg PO HS [facility] Last Admin: 11/15/18 22:15 Dose: 10 mg Al Hydrox/Mg Hydrox/Simethicone 30 ml/Diphenhydramine HCl 75 mg/Lidocaine 30 ml 0 ml PO Q2H PRN PRN Reason: Mouth/Throat Pain Ferrous Sulfate (Feosol) 324 mg PO TID [facility] Last Admin: 11/15/18 18:15 Dose: 324 mg Hydralazine HCl (Apresoline) 50 mg PO TID [facility] Last Admin: 11/15/18 18:13 Dose: Not Given Acyclovir 750 mg/ Sodium (Chloride) 100 mls @ 100 mls/hr IV Q8 [facility]; Protocol Last Admin: 11/16/18 05:11 Dose: 100 mls/hr Sodium Chloride (Sodium Chloride 0.45%) 1,000 mls @ 60 mls/hr IV .[id number] [facility] Last Admin: 11/16/18 02:27 Dose: 60 mls/hr Meropenem (Merrem Iv 1 Gm Premix) 1 gm in 50 mls @ 100 mls/hr IVPB Q12 [facility]; Protocol Last Admin: 11/15/18 22:14 Dose: 100 mls/hr Labetalol HCl (Trandate) 100 mg PO BID [facility] Last Admin: 11/15/18 18:14 Dose: Not Given Finasteride [ Finasteride] 1 Mg ( Home Med) 1 mg PO DAILY [facility] Last Admin: 11/15/18 10:35 Dose: Not Given Quetiapine Fumarate (Seroquel) 12.5 mg PO HS PRN; Protocol PRN Reason: Agitation Last Admin: 11/16/18 00:47 Dose: 12.5 mg Tamsulosin HCl (Flomax) 0.4 mg PO DAILY [facility] Last Admin: 11/15/18 10:35 Dose: 0.4 mg Timolol Maleate (Timoptic 0.5% Oph Soln) 1 drop OU DAILY [facility] Last Admin: 11/15/18 10:48 Dose: 1 drop - Labs Labs: 11/16/18 07:00 11/16/18 07:00 PT 15.0 SECONDS (9.4-12.5) H 11/13/18 14:50 INR 1.35 11/13/18 14:50 APTT 32.6 Seconds (26.9-38.3) 11/13/18 14:50 - Constitutional Appears: Non-toxic, No Acute Distress - Head Exam Head Exam: ATRAUMATIC, NORMAL INSPECTION, NORMOCEPHALIC - ENT Exam ENT Exam: Mucous Membranes Moist - Respiratory Exam Respiratory Exam: Decreased Breath Sounds, NORMAL BREATHING PATTERN - Cardiovascular Exam Cardiovascular Exam: RRR, +S1, +S2 - GI/Abdominal Exam GI & Abdominal Exam: Soft, Normal Bowel Sounds. absent: Tenderness - Extremities Exam Extremities Exam: Normal Inspection. absent: Pedal Edema - Neurological Exam Neurological Exam: Alert, Awake, Oriented x3 - Psychiatric Exam Psychiatric exam: Normal Affect, Normal Mood - Skin Skin Exam: Intact, Normal Color, Warm Assessment and Plan - Assessment and Plan (Free Text) Plan: Neutropenic fever, resolved MARIBETH Hx of renal cell carcinoma Hx of NSCLC with adenocarcinoma Hx of CAD Hx of HTN Hx of HLD Plan Continue Merrem Will stop Acyclovir with worsening MARIBETH Will start Valtrex Will also start Fluconozole Continue neutropenic precautions Blood and urine cultures negative Follow up Oncology recommendations Continue to monitor closely Fady, PGY-3 <Avila Velazco - Last Filed: 11/16/18 17:53> Objective - Vital Signs/Intake and Output Vital Signs (last 24 hours): Temp Pulse Resp BP Pulse Ox 97.2 F L 72 18 111/56 L 96 11/16/18 12:00 11/16/18 14:00 11/16/18 12:00 11/16/18 14:16 11/16/18 06:00 Intake and Output: 11/16/18 11/16/18 06:59 18:59 Intake Total 1658 Output Total 200 Balance 1458 - Medications Medications: Current Medications Amlodipine Besylate (Norvasc) 5 mg PO HS [facility] Last Admin: 11/15/18 22:15 Dose: Not Given Atorvastatin Calcium (Lipitor) 10 mg PO HS [facility] Last Admin: 11/15/18 22:15 Dose: 10 mg Al Hydrox/Mg Hydrox/Simethicone 30 ml/Diphenhydramine HCl 75 mg/Lidocaine 30 ml 0 ml PO Q2H PRN PRN Reason: Mouth/Throat Pain Last Admin: 11/16/18 10:11 Dose: 90 bottle Ferrous Sulfate (Feosol) 324 mg PO TID [facility] Last Admin: 11/16/18 14:16 Dose: 324 mg Fluconazole (Diflucan) 50 mg PO DAILY [facility]; Protocol Last Admin: 11/16/18 14:15 Dose: 50 mg Hydralazine HCl (Apresoline) 50 mg PO TID [facility] Last Admin: 11/16/18 14:16 Dose: Not Given Sodium Chloride (Sodium Chloride 0.45%) 1,000 mls @ 60 mls/hr IV .[id number] [facility] Last Admin: 11/16/18 02:27 Dose: 60 mls/hr Meropenem (Merrem Iv 1 Gm Premix) 1 gm in 50 mls @ 100 mls/hr IVPB Q12 [facility]; Protocol Last Admin: 11/16/18 09:54 Dose: 100 mls/hr Labetalol HCl (Trandate) 100 mg PO BID [facility] Last Admin: 11/16/18 09:55 Dose: 100 mg Finasteride [ Finasteride] 1 Mg ( Home Med) 1 mg PO DAILY [facility] Last Admin: 11/16/18 10:00 Dose: Not Given Quetiapine Fumarate (Seroquel) 12.5 mg PO HS PRN; Protocol PRN Reason: Agitation Last Admin: 11/16/18 00:47 Dose: 12.5 mg Tamsulosin HCl (Flomax) 0.4 mg PO DAILY [facility] Last Admin: 11/16/18 10:00 Dose: Not Given Timolol Maleate (Timoptic 0.5% Ophth Soln) 1 drop OU DAILY [facility] Last Admin: 11/16/18 09:55 Dose: 1 drop Valacyclovir HCl (Valtrex) 0.5 gm PO BID [facility]; Protocol - Labs Labs: 11/16/18 07:00 11/16/18 07:00 PT 15.0 SECONDS (9.4-12.5) H 11/13/18 14:50 INR 1.35 11/13/18 14:50 APTT 32.6 Seconds (26.9-38.3) 11/13/18 14:50 Assessment and Plan - Assessment and Plan (Free Text) Plan: Infectious diseases Attending Physician Attestation Patient seen and examined, discussed with durable medical equipment repairer. I have reviewed the patient's history of present illness, past medical, social, personal and family histories, pertinent physical exam findings, course so far in this hospital admission, pertinent laboratory and imaging results. I agree with the above findings, assessment and plan. In addition, continue Merrem for now for febrile neutropenia - now patient is not neutropenic anymore and no fevers. Cultures have been negative - will d/c if by tomorrow, no fevers and not neutropenic. Patient with mucositis - switched to PO Valtrex and start Diflucan.
[2018-11-16] MEDS: Meropenem IV 1 gm in NS 1 GM/50 ML BAG IVPB SCH ×2 (09:54→21:21)
[2018-11-16] MEDS: FINASTERIDE 1 MG PO SCH (10:00)
[2018-11-16] MEDS: Aluminum Hydroxide/Magnesium 30 ML, DiphenhydrAMINE 75 MG, Lidocaine 2% Viscous 30 ML PO PRN (10:11)
--- NOTE | 2018-11-16 10:59 | CP.PCM.APN ---
Subjective - Date & Time of Evaluation Date of Evaluation: 11/16/18 Time of Evaluation: 10:00 - Subjective Subjective: pt seen and examined at bedside pt is awake, alert , NAD, states he is at [facility] when questioned == Review of Systems - Constitutional Constitutional: Lethargy Objective - Vital Signs/Intake and Output Vital Signs (last 24 hours): Temp Pulse Resp BP Pulse Ox 97.3 F L 78 18 131/62 96 11/16/18 06:00 11/16/18 10:00 11/16/18 06:00 11/16/18 06:00 11/16/18 06:00 Intake and Output: 11/16/18 11/16/18 06:59 18:59 Intake Total 1658 Output Total 200 Balance 1458 - Medications Medications: Current Medications Amlodipine Besylate (Norvasc) 5 mg PO HS [facility] Last Admin: 11/15/18 22:15 Dose: Not Given Atorvastatin Calcium (Lipitor) 10 mg PO [facility] Last Admin: 11/15/18 22:15 Dose: 10 mg Al Hydrox/Mg Hydrox/Simethicone 30 ml/Diphenhydramine HCl 75 mg/Lidocaine 30 ml 0 ml PO Q2H PRN PRN Reason: Mouth/Throat Pain Last Admin: 11/16/18 10:11 Dose: 90 bottle Ferrous Sulfate (Feosol) 324 mg PO TID [facility] Last Admin: 11/16/18 09:55 Dose: 324 mg Hydralazine HCl (Apresoline) 50 mg PO TID [facility] Last Admin: 11/16/18 09:55 Dose: 50 mg Acyclovir 750 mg/ Sodium (Chloride) 100 mls @ 100 mls/hr IV Q8 [facility]; Protocol Last Admin: 11/16/18 05:11 Dose: 100 mls/hr Sodium Chloride (Sodium Chloride 0.45%) 1,000 mls @ 60 mls/hr IV .[id number] [facility] Last Admin: 11/16/18 02:27 Dose: 60 mls/hr Meropenem (Merrem Iv 1 Gm Premix) 1 gm in 50 mls @ 100 mls/hr IVPB Q12 [facility]; Protocol Last Admin: 11/16/18 09:54 Dose: 100 mls/hr Labetalol HCl (Trandate) 100 mg PO BID [facility] Last Admin: 11/16/18 09:55 Dose: 100 mg Finasteride [ Finasteride] 1 Mg ( Home Med) 1 mg PO DAILY [facility] Last Admin: 11/15/18 10:35 Dose: Not Given Quetiapine Fumarate (Seroquel) 12.5 mg PO HS PRN; Protocol PRN Reason: Agitation Last Admin: 11/16/18 00:47 Dose: 12.5 mg Tamsulosin HCl (Flomax) 0.4 mg PO DAILY [facility] Last Admin: 11/15/18 10:35 Dose: 0.4 mg Timolol Maleate (Timoptic 0.5% [facility]) 1 drop OU DAILY [facility] Last Admin: 11/16/18 09:55 Dose: 1 drop - Labs Labs: 11/16/18 07:00 11/16/18 07:00 PT 15.0 SECONDS (9.4-12.5) H 11/13/18 14:50 INR 1.35 11/13/18 14:50 APTT 32.6 Seconds (26.9-38.3) 11/13/18 14:50 - Constitutional Appears: No Acute Distress - Head Exam Head Exam: NORMAL INSPECTION - Eye Exam Eye Exam: PERRL Pupil Exam: NORMAL ACCOMODATION - ENT Exam ENT Exam: Normal Exam - Respiratory Exam Respiratory Exam: NORMAL BREATHING PATTERN - Cardiovascular Exam Cardiovascular Exam: +S1, +S2 - Neurological Exam Neurological Exam: Alert, Awake - Psychiatric Exam Psychiatric exam: Normal Affect - Skin Skin Exam: Dry, Intact Assessment and Plan - Assessment and Plan (Free Text) Plan: 83 yr old white male with pmh sig for renal cell cand lung ca undergoing eval for chemo when he developed neutropenic fever and was admitted for further eval with hematology/oncology and ID consultation # neutropenic fever resolved, afebrile today wbc is 4.8, ANC is 3.00, Neur % improved per Dr Zeng, Neutropic precautions can be Dc today IV antibiotics MErrem an ID recs noted # Urinary retention Dr Vazquez consulted cr noted with acute elevation ?Renal US warrented Flomax regimen initiated Pt awaiting almazan insertion with # acute delirium Dr Dobbs consulted Seroquel regimen started pt on Avisis monitor Per discussion with PT - recs for ISMAEL . discuss with Rn and Cm will continue to follow BPCI/TIC - BPCIA/TIC Educated pt/family on BPCIA/CIR/Med to Bed Programs: N/A Flyers given, including CMS Beneficiary letter: N/A Pt/family verbalized understanding & agreed to program: N/A
--- NOTE | 2018-11-16 12:37 | PN ---
DATE: 11/16/2018 SUBJECTIVE: He had a very rough night last night. He could not urinate. He was also standing at one point to urinate, now he has got like 400 mL in his bladder. I called in Dr. Andrew Vazquez. I spoke to on the phone. We need him to start Flomax. He has also been a little bit out of right now. So, he is going to have a one-to-one because he was trying to get out of bed and he was kind of trying to re-orient and he is having trouble. So definitely things are not doing well this morning. PHYSICAL EXAMINATION: VITAL SIGNS: 97.3 temperature, 78 pulse, 131/62 blood pressure, 18 respiratory rate, 96% O2 saturation on room air. HEENT: Head was traumatic. It is fine now. Normocephalic. HEART: Regular rate. LUNGS: Decreased breath sounds. ABDOMEN: Soft. EXTREMITIES: No edema. MEDICATIONS: He is on acyclovir; Apresoline; Feosol; finasteride; Flomax, we are going to start Flomax right now; Lipitor. He is on Merrem IV, Norvasc, Seroquel, IV fluids, Timoptic and Trandate. LABORATORY DATA: Labs are pending this morning. Yesterday's white count went up to 2, which is good. ASSESSMENT AND PLAN: He is being seen by Psychiatry, Infectious Disease and I will be calling Dr. Vazquez, urologist for stat consult for urinary retention. Had neutropenic fever, acute kidney injury, now he has urinary retention. Wesly Collins DO MTDD
--- NOTE | 2018-11-16 14:01 | US ---
Date of service: 11/16/2018 PROCEDURE: Ultrasound of the Kidneys HISTORY: elevated cr - assess kidneys COMPARISON: None available. TECHNIQUE: Grayscale imaging was performed. FINDINGS: RIGHT KIDNEY: Measures: 11.9 cm. Normal in size, contour and echogenicity. No stone, solid mass lesion or hydronephrosis visualized. LEFT KIDNEY: Measures: 11.4 cm. Normal in size, contour and echogenicity. No stone, solid mass lesion or hydronephrosis visualized. OTHER FINDINGS: None. IMPRESSION: Unremarkable renal sonogram.
--- NOTE | 2018-11-16 19:03 | PN ---
DATE: 11/16/2018 SUBJECTIVE: The patient was seen and examined today. The patient reported that he had horrible night. The patient was not able to sleep due to urinary retention and catheter needed to be placed. The patient required as needed Seroquel at the nighttime because the patient also was confused. The patient appears to be weak. The patient denied any thoughts of harming himself or others. Denied intent or plan. Family is next to the patient. OBJECTIVE: VITAL SIGNS: Reviewed. Temperature 97.2, pulse 67, blood pressure 111/56, respirations 18, and oxygen saturation is 96%. MENTAL STATUS EXAMINATION: The patient appears to be weak, pale, and intermittent eye contact. Mood described as "okay, but I had horrible night." Affect was constricted. Thought process was coherent and goal directed. Thought content, the patient denied visual, auditory, or tactile hallucinations. Denied paranoid ideations. The patient has episodes of confusion, which is related to the medical issues. MEDICATIONS: Reviewed. Seroquel was given yesterday. The patient tolerated that well. LABORATORY DATA: Reviewed. Today; white blood cells is 4.8, to compare with the time of admission 0.9. Platelets count going up from 32 and now is 52. Chemistry reviewed. Urinalysis reviewed. Toxicology reviewed. Serology reviewed. ASSESSMENT AND PLAN: Delirium, which is related to a lot of medical issues; chemotherapy, radiation, as well as infection. Delirium is improving. We will continue Seroquel as needed. There is no acute psychiatric issues going on. Discussed with the family, please reconsult as needed. If the patient would be less confused, Seroquel will be discontinued. The patient is not suicidal and is not homicidal. Should you have any questions, give me a call back. Dilia Laureano MD
--- NOTE | 2018-11-16 22:52 | CP.PCM.CON ---
Past Patient History - Past Medical History & Family History Past Medical History?: Yes - Past Social History Smoking Status: Never Smoked - CARDIAC Hx Cardiac Disorders: Yes (CAD) Hx Hypercholesterolemia: Yes Hx Hypertension: Yes - PULMONARY Hx Respiratory Disorders: Yes (dx w/lung ca 2018) - NEUROLOGICAL Hx Neurological Disorder: No - HEENT Hx HEENT Problems: Yes Hx Cataracts: Yes (BILAT IOLI) Hx Glaucoma: Yes - RENAL Hx Renal (Kidney) Cancer: Yes (left renal mass removed, stage iv) Other/Comment: RENAL TUMOR LEFT - ENDOCRINE/METABOLIC Hx Endocrine Disorders: No - HEMATOLOGICAL/ONCOLOGICAL Hx Blood Disorders: Yes (pancytopenia) Hx Cancer: Yes (Kidney and lung) Hx Chemotherapy: Yes Hx Shingles: Yes Other/Comment: pt dx 2018 left kidney mass, left kidney tumor removed no chemo no radiation, then dx same year woth lung ca, radiation tx's completed 2 months ago, currently receiving chemotherapy - INTEGUMENTARY Hx Dermatological Problems: Yes (alopecia) Other/Comment: areas of dry red skin to both hands and red palms of hands x 1 wk, cause unknown, abrasion over right eyebrow redness, swelling and dry patch of skin from fall yesterday 11/14/18 from, small abrasion dry red scab to bridge of nose, skin tear left hand 5th finger, dry brown skin to neck b/l, dry brown skin to all toes, dry toenails all toes, 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 red areas of skin inner red foot and inner left foot, red raised rash posteriior b/l thighs - MUSCULOSKELETAL/RHEUMATOLOGICAL Hx Musculoskeletal Disorders: Yes Hx Falls: Yes (fell 11/13/18) Hx Fractures: Yes (left femur) Hx Unsteady Gait: Yes (walker) - GASTROINTESTINAL Hx Gastrointestinal Disorders: Yes (colon polyps, r inguinal hernia) Hx Gall Bladder Disease: Yes Other/Comment: SMALL BOWEL OBSTRUCTION/NO SURGERY NEEDED - GENITOURINARY/GYNECOLOGICAL Hx Genitourinary Disorders: Yes Hx Prostate Problems: Yes (BPH) Hx Urinary Tract Infection: Yes Other/Comment: transuretheral resection 11 yrs ago - PSYCHIATRIC Hx Psychophysiologic Disorder: No Hx Emotional Abuse: No Hx Physical Abuse: No Hx Substance Use: No - SURGICAL HISTORY Hx Surgeries: Yes Hx Cholecystectomy: Yes Hx Orthopedic Surgery: Yes (orif left femur fx) Other/Comment: Left leg Sx. Left kidney tumor removal - ANESTHESIA Hx Anesthesia: Yes Hx Anesthesia Reactions: No Hx Malignant Hyperthermia: No Meds Allergies/Adverse Reactions: Allergies Allergy/AdvReac Type Severity Reaction Status Date / Time No Known Allergies Allergy Verified 07/23/18 14:56 - Medications Medications: Current Medications Amlodipine Besylate (Norvasc) 5 mg PO HS COUNT [facility]CLUDES [facility] Last Admin: 11/16/18 21:27 Dose: 5 mg Atorvastatin Calcium (Lipitor) 10 mg PO HS COUNT [facility]CLUD[facility] Last Admin: 11/16/18 21:23 Dose: 10 mg Al Hydrox/Mg Hydrox/Simethicone 30 ml/Diphenhydramine HCl 75 mg/Lidocaine 30 ml 0 ml PO Q2H PRN PRN Reason: Mouth/Throat Pain Last Admin: 11/16/18 10:11 Dose: 90 bottle Ferrous Sulfate (Feosol) 324 mg PO TID [facility] Last Admin: 11/16/18 18:01 Dose: 324 mg Fluconazole (Diflucan) 50 mg PO DAILY [facility]; Protocol Last Admin: 11/16/18 14:15 Dose: 50 mg Hydralazine HCl (Apresoline) 50 mg PO TID [facility] Last Admin: 11/16/18 17:48 Dose: Not Given Sodium Chloride (Sodium Chloride 0.45%) 1,000 mls @ 60 mls/hr IV .[id number] COUNT [facility]CLUDES [facility] Last Admin: 11/16/18 02:27 Dose: 60 mls/hr Meropenem (Merrem Iv 1 Gm Premix) 1 gm in 50 mls @ 100 mls/hr IVPB Q12 [facility]; Protocol Last Admin: 11/16/18 21:21 Dose: 100 mls/hr Labetalol HCl (Trandate) 100 mg PO BID [facility] Last Admin: 11/16/18 17:48 Dose: Not Given Finasteride [ Finasteride] 1 Mg ( Home Med) 1 mg PO DAILY [facility] Last Admin: 11/16/18 10:00 Dose: Not Given Quetiapine Fumarate (Seroquel) 12.5 mg PO HS PRN; Protocol PRN Reason: Agitation Last Admin: 11/16/18 21:22 Dose: 12.5 mg Tamsulosin HCl (Flomax) 0.4 mg PO DAILY [facility] Last Admin: 11/16/18 10:00 Dose: Not Given Timolol Maleate (Timoptic 0.5% Ophth Soln) 1 drop OU DAILY [facility] Last Admin: 11/16/18 09:55 Dose: 1 drop Valacyclovir HCl (Valtrex) 500 mg PO BID [facility]; Protocol Last Admin: 11/16/18 18:01 Dose: 500 mg Results - Vital Signs Recent Vital Signs: Last Vital Signs Temp 97.5 F L 11/16/18 17:58 Pulse 77 11/16/18 18:00 Resp 18 11/16/18 17:58 BP 143/71 11/16/18 21:27 Pulse Ox 96 11/16/18 06:00 - Labs Result Diagrams: 11/16/18 07:00 11/16/18 07:00 Labs: Laboratory Results - last 24 hr 11/16/18 11/16/18 07:00 07:00 WBC 4.8 D RBC 2.74 L Hgb 9.0 L Hct 26.7 L MCV 97.4 MCH 32.8 MCHC 33.7 RDW 15.5 H Plt Count 52 L MPV 11.0 Neut % (Auto) 62.4 Lymph % (Auto) 18.9 L [place] % (Auto) 18.1 H Eos % (Auto) 0.4 L Baso % (Auto) 0.2 Lymph # (Auto) 0.9 L [place] # (Auto) 0.9 H Eos # (Auto) 0.0 Baso # (Auto) 0.01 Absolute Neuts (auto) 3.00 Sodium 138 Potassium 3.5 L Chloride 110 H Carbon Dioxide 21 Anion Gap 10 BUN 34 H Creatinine 3.2 H Est GFR ( Amer) 23 Est GFR (Non-Af Amer) 19 Random Glucose 107 Calcium 8.2 L Total Bilirubin 0.5 AST 37 ALT 15 Alkaline Phosphatase 92 Total Protein 5.6 L Albumin 2.6 L Globulin 3.0 Albumin/Globulin Ratio 0.9 L Assessment & Plan - Assessment and Plan (Free Text) Assessment: Urology consultation IMP: urinary retention Hx of BPH Azotemia Lung Ca Neutropenia, secondary to chemorx Hx of renal ca, p partial nephrectomy P: attempted urethral catheterization and dilation performed finding: prob urethral false passage Trocar cystostomy tube inserted. YS - Date & Time Date: 11/16/18 Time: 18:30
--- NOTE | 2018-11-16 23:19 | CP.PCM.PN ---
Subjective - Date & Time of Evaluation Date of Evaluation: 11/16/18 Time of Evaluation: 18:00 - Subjective Subjective: Remains confused at times s/p suprapubic catheter placement for urinary retention Objective - Vital Signs/Intake and Output Vital Signs (last 24 hours): Temp Pulse Resp BP Pulse Ox 97.5 F L 77 18 143/71 96 11/16/18 17:58 11/16/18 18:00 11/16/18 17:58 11/16/18 21:27 11/16/18 06:00 Intake and Output: 11/16/18 11/17/18 18:59 06:59 Intake Total 420 Output Total 0 0 Balance 0 420 - Medications Medications: Current Medications Amlodipine Besylate (Norvasc) 5 mg PO HS [facility] Last Admin: 11/16/18 21:27 Dose: 5 mg Atorvastatin Calcium (Lipitor) 10 mg PO [facility] Last Admin: 11/16/18 21:23 Dose: 10 mg Al Hydrox/Mg Hydrox/Simethicone 30 ml/Diphenhydramine HCl 75 mg/Lidocaine 30 ml 0 ml PO Q2H PRN PRN Reason: Mouth/Throat Pain Last Admin: 11/16/18 10:11 Dose: 90 bottle Ferrous Sulfate (Feosol) 324 mg PO TID [facility] Last Admin: 11/16/18 18:01 Dose: 324 mg Fluconazole (Diflucan) 50 mg PO DAILY [facility]; Protocol Last Admin: 11/16/18 14:15 Dose: 50 mg Hydralazine HCl (Apresoline) 50 mg PO TID [facility] Last Admin: 11/16/18 17:48 Dose: Not Given Sodium Chloride (Sodium Chloride 0.45%) 1,000 mls @ 60 mls/hr IV .[id number] [facility] Last Admin: 11/16/18 02:27 Dose: 60 mls/hr Meropenem (Merrem Iv 1 Gm Premix) 1 gm in 50 mls @ 100 mls/hr IVPB Q12 [facility]; Protocol Last Admin: 11/16/18 21:21 Dose: 100 mls/hr Labetalol HCl (Trandate) 100 mg PO BID [facility] Last Admin: 11/16/18 17:48 Dose: Not Given Finasteride [ Finasteride] 1 Mg ( Home Med) 1 mg PO DAILY [facility] Last Admin: 11/16/18 10:00 Dose: Not Given Quetiapine Fumarate (Seroquel) 12.5 mg PO HS PRN; Protocol PRN Reason: Agitation Last Admin: 11/16/18 21:22 Dose: 12.5 mg Tamsulosin HCl (Flomax) 0.4 mg PO DAILY [facility] Last Admin: 11/16/18 10:00 Dose: Not Given Timolol Maleate (Timoptic 0.5% Ophth Soln) 1 drop OU DAILY [facility] Last Admin: 11/16/18 09:55 Dose: 1 drop Valacyclovir HCl (Valtrex) 500 mg PO BID [facility]; Protocol Last Admin: 11/16/18 18:01 Dose: 500 mg - Labs Labs: 11/16/18 07:00 11/16/18 07:00 PT 15.0 SECONDS (9.4-12.5) H 11/13/18 14:50 INR 1.35 11/13/18 14:50 APTT 32.6 Seconds (26.9-38.3) 11/13/18 14:50 - Head Exam Head Exam: ATRAUMATIC - Eye Exam Eye Exam: Normal appearance - ENT Exam ENT Exam: Mucous Membranes Dry - Respiratory Exam Respiratory Exam: NORMAL BREATHING PATTERN - Cardiovascular Exam Cardiovascular Exam: +S1, +S2 - GI/Abdominal Exam GI & Abdominal Exam: Normal Bowel Sounds Assessment and Plan (1) Dehydration Assessment & Plan: IV fluids Status: Acute (2) Mucositis Assessment & Plan: magic mouth wash IV fluids Status: Acute (3) Pancytopenia Assessment & Plan: secondary to chemotherapy neutropenia resolved s/p growth factor treatment Status: Acute (4) Lung cancer Assessment & Plan: stage IV outpatient treatment Status: Acute
[2018-11-17] MEDS: Sodium Chloride 0.45% 1,000 ML IV SCH ×2 (00:09→14:17)
[2018-11-17] MEDS: Meropenem IV 1 gm in NS 1 GM/50 ML BAG IVPB SCH (09:39)
[2018-11-17] MEDS: FINASTERIDE 1 MG PO SCH (10:00)
--- NOTE | 2018-11-17 10:04 | PN ---
DATE: 11/17/2018 SUBJECTIVE: He had a very rough yesterday with a urinary retention with the urologist to put in a suprapubic catheter. He was not able to do it through his penis. He is more comfortable now. He is a little bit confused, but better and the urine is coming out nicely. He was dehydrated. He was on IV fluids, pancytopenia from the chemotherapy. Now he has got a suprapubic catheter. He is more alert and comfortable right now. OBJECTIVE: VITAL SIGNS: He had a 97.4 temperature, 79 pulse, 146/74 blood pressure, 20 respiratory rate, 96% O2 sat on room air. HEENT: Head is atraumatic, normocephalic. HEART: Regular rate. LUNGS: Decreased breath sounds, but clear. ABDOMEN: Soft. He has got suprapubic catheter. MEDICATIONS: He is on Apresoline, Feosol, finasteride, Flomax, Lipitor, Merrem, Norvasc, Seroquel, IV fluids, Timoptic, Trandate, and Valtrex. LABORATORY DATA: He has a urine which is now improving; 4.8 white count, better; 9 hemoglobin; 26.7 hematocrit with 52 platelets. The CBC is roughly improving. Sodium 138, potassium 3.5, I will give him some potassium. BUN 34, creatinine 3.2, was high it will come down now that suprapubic catheter in place. GFR is 19, sugar is 107, calcium is 8.2, total bili is 0.5, AST is 37, ALT is 15, alk phos 92. ASSESSMENT AND PLAN: He is being seen by Urology, Hematology, Psychiatry, Infectious Disease. I think he might need to go to a . He has neutropenic fever, urinary retention now with the suprapubic catheter. He had acute delirium, which is slowly improving. When I get the okay from the Infectious Disease, we will get him to , that will be great. Maybe later today if everything works out. Wesly Collins DO [facility]Marie
[2018-11-17 11:11] LABS: BASO # 0.02 K/mm3 (0.0-2.0); BASO % 0.4 % (0.0-3.0); EOS % 0.2 % (1.5-5.0); HEMOGLOBIN 9.1 g/dL (14.0-18.0); LYMPH # 0.8 (1.2-3.4); LYMPH % 16.9 % (22.0-35.0); MEAN CELL VOLUME 97.1 fl (80.0-105.0); MEAN CORPUSCULAR HEMOGLOBIN 33.1 pg (25.0-35.0); MEAN CORPUSCULAR HGB CONC 34.1 g/dl (31.0-37.0); MEAN PLATELET VOLUME 8.9 fl (7.0-11.0); MONO # 0.7 (0.1-0.6); MONO % 16.2 % (1.0-6.0); RBC 2.75 10^6/uL (3.5-6.1); RED CELL DISTRIBUTION WIDTH 15.6 % (11.5-14.5); WHITE BLOOD COUNT 4.5 10^3/uL (4.5-11.0)
[2018-11-17 11:15] LABS: PLATELET COUNT 44 10^3/uL (120.0-450.0)
[2018-11-17 11:24] LABS: ALB/GLOB RATIO 0.9 (1.1-1.8); ALBUMIN 2.6 g/dL (3.0-4.8)
--- NOTE | 2018-11-17 13:26 | CP.PCM.PN ---
<Carroll Shrestha - Last Filed: 11/17/18 14:35> Subjective - Date & Time of Evaluation Date of Evaluation: 11/17/18 Time of Evaluation: 07:20 - Subjective Subjective: ID Progress Note Patient seen and examined. Patient more alert today. No fevers. Objective - Vital Signs/Intake and Output Vital Signs (last 24 hours): Temp Pulse Resp BP Pulse Ox 97.8 F 80 20 134/71 96 11/17/18 12:00 11/17/18 12:00 11/17/18 12:00 11/17/18 12:00 11/17/18 06:00 Intake and Output: 11/17/18 11/17/18 06:59 18:59 Intake Total 1140 Output Total 1125 Balance 15 - Medications Medications: Current Medications Amlodipine Besylate (Norvasc) 5 mg PO HS [facility] Last Admin: 11/16/18 21:27 Dose: 5 mg Atorvastatin Calcium (Lipitor) 10 mg PO HS [facility] Last Admin: 11/16/18 21:23 Dose: 10 mg Al Hydrox/Mg Hydrox/Simethicone 30 ml/Diphenhydramine HCl 75 mg/Lidocaine 30 ml 0 ml PO Q2H PRN PRN Reason: Mouth/Throat Pain Last Admin: 11/16/18 10:11 Dose: 90 bottle Ferrous Sulfate (Feosol) 324 mg PO TID [facility] Last Admin: 11/17/18 09:40 Dose: 324 mg Fluconazole (Diflucan) 50 mg PO DAILY [facility]; Protocol Last Admin: 11/17/18 09:39 Dose: 50 mg Hydralazine HCl (Apresoline) 50 mg PO TID [facility] Last Admin: 11/17/18 09:39 Dose: 50 mg Sodium Chloride (Sodium Chloride 0.45%) 1,000 mls @ 60 mls/hr IV .[id number] [facility] Last Admin: 11/17/18 00:09 Dose: 60 mls/hr Labetalol HCl (Trandate) 100 mg PO BID [facility] Last Admin: 11/17/18 09:38 Dose: 100 mg Finasteride [ Finasteride] 1 Mg ( Home Med) 1 mg PO DAILY [facility] Last Admin: 11/16/18 10:00 Dose: Not Given Quetiapine Fumarate (Seroquel) 12.5 mg PO HS PRN; Protocol PRN Reason: Agitation Last Admin: 11/16/18 21:22 Dose: 12.5 mg Tamsulosin HCl (Flomax) 0.4 mg PO DAILY [facility] Last Admin: 11/17/18 09:39 Dose: 0.4 mg Timolol Maleate (Timoptic 0.5% Ophth Soln) 1 drop OU DAILY [facility] Last Admin: 11/17/18 09:38 Dose: 1 drop Valacyclovir HCl (Valtrex) 500 mg PO BID [facility]; Protocol Last Admin: 11/17/18 09:39 Dose: 500 mg - Labs Labs: 11/17/18 11:05 11/17/18 11:05 PT 15.0 SECONDS (9.4-12.5) H 11/13/18 14:50 INR 1.35 11/13/18 14:50 APTT 32.6 Seconds (26.9-38.3) 11/13/18 14:50 - Constitutional Appears: Non-toxic, No Acute Distress - Head Exam Head Exam: ATRAUMATIC, NORMAL INSPECTION, NORMOCEPHALIC - Respiratory Exam Respiratory Exam: Decreased Breath Sounds, NORMAL BREATHING PATTERN - Cardiovascular Exam Cardiovascular Exam: RRR, +S1, +S2 - GI/Abdominal Exam GI & Abdominal Exam: Soft, Normal Bowel Sounds. absent: Tenderness - Extremities Exam Extremities Exam: Normal Inspection. absent: Pedal Edema - Neurological Exam Neurological Exam: Alert, Awake, Oriented x3 - Psychiatric Exam Psychiatric exam: Normal Affect, Normal Mood - Skin Skin Exam: Dry, Intact, Warm Assessment and Plan - Assessment and Plan (Free Text) Plan: Neutropenic fever, resolved MARIBETH S/p cystostomy Hx of renal cell carcinoma Hx of NSCLC with adenocarcinoma Hx of CAD Hx of HTN Hx of HLD Plan Stop Merrem, cultures negative Continue Valtrex and Fluconozole Renal ultrasound negative Blood and urine cultures negative Follow up Oncology recommendations Continue to monitor closely Fady, PGY-3 <Avila Velazco - Last Filed: 11/17/18 16:10> Objective - Vital Signs/Intake and Output Vital Signs (last 24 hours): Temp Pulse Resp BP Pulse Ox 97.8 F 84 20 134/71 96 11/17/18 12:00 11/17/18 14:15 11/17/18 12:00 11/17/18 14:15 11/17/18 06:00 Intake and Output: 11/17/18 11/17/18 06:59 18:59 Intake Total 1140 Output Total 1125 Balance 15 - Medications Medications: Current Medications Amlodipine Besylate (Norvasc) 5 mg PO HS [facility] Last Admin: 11/16/18 21:27 Dose: 5 mg Atorvastatin Calcium (Lipitor) 10 mg PO HS [facility] Last Admin: 11/16/18 21:23 Dose: 10 mg Al Hydrox/Mg Hydrox/Simethicone 30 ml/Diphenhydramine HCl 75 mg/Lidocaine 30 ml 0 ml PO Q2H PRN PRN Reason: Mouth/Throat Pain Last Admin: 11/17/18 14:27 Dose: 1 bottle Ferrous Sulfate (Feosol) 324 mg PO TID [facility] Last Admin: 11/17/18 14:15 Dose: 324 mg Fluconazole (Diflucan) 50 mg PO DAILY [facility]; Protocol Last Admin: 11/17/18 09:39 Dose: 50 mg Hydralazine HCl (Apresoline) 50 mg PO TID [facility] Last Admin: 11/17/18 14:15 Dose: 50 mg Sodium Chloride (Sodium Chloride 0.45%) 1,000 mls @ 60 mls/hr IV .[id number] [facility] Last Admin: 11/17/18 14:17 Dose: 60 mls/hr Labetalol HCl (Trandate) 100 mg PO BID [facility] Last Admin: 11/17/18 09:38 Dose: 100 mg Finasteride [ Finasteride] 1 Mg ( Home Med) 1 mg PO DAILY [facility] Last Admin: 11/16/18 10:00 Dose: Not Given Quetiapine Fumarate (Seroquel) 12.5 mg PO HS PRN; Protocol PRN Reason: Agitation Last Admin: 11/16/18 21:22 Dose: 12.5 mg Tamsulosin HCl (Flomax) 0.4 mg PO DAILY [facility] Last Admin: 11/17/18 09:39 Dose: 0.4 mg Timolol Maleate (Timoptic 0.5% Ophth Soln) 1 drop OU DAILY [facility] Last Admin: 11/17/18 09:38 Dose: 1 drop Valacyclovir HCl (Valtrex) 500 mg PO BID [facility]; Protocol Last Admin: 11/17/18 09:39 Dose: 500 mg - Labs Labs: 11/17/18 11:05 11/17/18 11:05 PT 15.0 SECONDS (9.4-12.5) H 11/13/18 14:50 INR 1.35 11/13/18 14:50 APTT 32.6 Seconds (26.9-38.3) 11/13/18 14:50 Assessment and Plan - Assessment and Plan (Free Text) Plan: Infectious diseases Attending Physician Attestation Patient seen and examined, discussed with resident medical officer. I have reviewed the patient's history of present illness, past medical, social, personal and family histories, pertinent physical exam findings, course so far in this hospital admission, pertinent laboratory and imaging results. I agree with the above findings, assessment and plan. In addition, will d/c antibiotics - patient is S/P febrile neutropenia without specific source, patient afebrile currently. Cultures have been negative. Will continue Valtrex and Diflucan for patient with mucositis. Follow up further plans of Urology - patient with acute renal earl lure, may be due to obstructive uropathy.
[2018-11-17] MEDS: Aluminum Hydroxide/Magnesium 30 ML, DiphenhydrAMINE 75 MG, Lidocaine 2% Viscous 30 ML PO PRN (14:27)
[2018-11-17] MEDS ORDERED: Aluminum Hydroxide/Magnesium 30 ML, DiphenhydrAMINE 75 MG, Lidocaine 2% Viscous 30 ML PO PRN (16:11)
[2018-11-18] MEDS: Sodium Chloride 0.45% 1,000 ML IV SCH ×4 (03:30→21:34)
[2018-11-18 07:25] LABS: MEAN CELL VOLUME 98.2 fl (80.0-105.0); MEAN CORPUSCULAR HEMOGLOBIN 32.5 pg (25.0-35.0); MEAN CORPUSCULAR HGB CONC 33.1 g/dl (31.0-37.0); MEAN PLATELET VOLUME 11.4 fl (7.0-11.0); RBC 2.77 10^6/uL (3.5-6.1); RED CELL DISTRIBUTION WIDTH 15.8 % (11.5-14.5); WHITE BLOOD COUNT 4.5 10^3/uL (4.5-11.0)
[2018-11-18 07:54] LABS: ALB/GLOB RATIO 0.9 (1.1-1.8); ALBUMIN 2.7 g/dL (3.0-4.8); CALCIUM 8.2 mg/dL (8.4-10.5)
[2018-11-18] MEDS: Aluminum Hydroxide/Magnesium 30 ML, DiphenhydrAMINE 75 MG, Lidocaine 2% Viscous 30 ML PO PRN ×3 (10:10→21:42)
[2018-11-18] MEDS: FINASTERIDE 1 MG PO SCH (10:10)
--- NOTE | 2018-11-18 12:18 | PN ---
DATE: 11/18/2018 SUBJECTIVE: The patient is in bed, in no acute distress, nontoxic. OBJECTIVE: VITAL SIGNS: On exam, temperature is 98, blood pressure is 140/70, respiratory rate 20, heart rate of 76. HEENT: Unremarkable. NECK: Supple. LUNGS: Have decreased breath sounds. HEART: Normal S1 and S2. ABDOMEN: Soft, nontender. LABORATORY DATA: Reveals a white count of 4.5, hemoglobin of 9, platelets of 55. BUN of 41, creatinine of 3.8. Urinalysis is noted. Toxicology is noted. Serology is noted. ASSESSMENT AND PLAN: He is an 83-year-old, status post febrile neutropenia, now afebrile currently. Cultures negative. Currently on p.o. Diflucan, p.o. Valtrex. The patient is at risk for developing nosocomial infections. Korey Vizcaino MD
--- NOTE | 2018-11-18 12:54 | CP.PCM.CON ---
History of Present Illness - History of Present Illness History of Present Illness: RENAL 83 yo M w/ pmh of HTN, CAD, hyperlipid, partial nephrectomy, lung Ca that presnted w/ neutorpenic fever. He has been seen by ID and is been on abx. He is overall feeling better. He denies n/v. He is confused and a full history difficult to obtain from him. Renal function has been worsening last several days. Episodes of hypotension noted. Urinary retention requiring spurapubic tube placed by dr. luong. ros: limited as pt is confused Medical history: CAD, HTN, HLD, renal cell carcinoma s/p partial nephrectomy, lung ca Surgical history: Partial nephrectomy Family history: Denies esrd Social history: Former tobacco abuse, denies alcohol, and illicit drug use. Allergies: NKDA Medications: Reviewed, as per MAR o: vs as below gen: nad sclera: anicteric op: clear neck: supple cv: +S1+s2 no rub lungs reduced bs at bases abd: soft nt nd no organomegaly ext: trace edema neuro: following commands, bunt mildly confused psych: Nml affect skin: no rash labs and imaging reviewed imp: ARF/ Neutropenic fever/ Urinary retention/ Anemia plan: MARIBETH - cr seems to be plateauing - suspect likely multifactorial from the hypotension/reduced perfusion 2/6 + urinary retention. Will keep eye on cr and UOP - so far looks to be adequate. Continue IVF as your doing abx per ID prbc per heme onc. Will continue to follow with you Past Patient History - Past Medical History & Family History Past Medical History?: Yes - Past Social History Smoking Status: Never Smoked - CARDIAC Hx Cardiac Disorders: Yes (CAD) Hx Hypercholesterolemia: Yes Hx Hypertension: Yes - PULMONARY Hx Respiratory Disorders: Yes (dx w/lung ca 2018) - NEUROLOGICAL Hx Neurological Disorder: No - HEENT Hx HEENT Problems: Yes Hx Cataracts: Yes (BILAT IOLI) Hx Glaucoma: Yes - RENAL Hx Renal (Kidney) Cancer: Yes (left renal mass removed, stage iv) Other/Comment: RENAL TUMOR LEFT - ENDOCRINE/METABOLIC Hx Endocrine Disorders: No - HEMATOLOGICAL/ONCOLOGICAL Hx Blood Disorders: Yes (pancytopenia) Hx Cancer: Yes (Kidney and lung) Hx Chemotherapy: Yes Hx Shingles: Yes Other/Comment: pt dx 2018 left kidney mass, left kidney tumor removed no chemo no radiation, then dx same year woth lung ca, radiation tx's completed 2 months ago, currently receiving chemotherapy - INTEGUMENTARY Hx Dermatological Problems: Yes (alopecia) Other/Comment: areas of dry red skin to both hands and red palms of hands x 1 wk, cause unknown, abrasion over right eyebrow redness, swelling and dry patch o f skin from fall yesterday 11/14/18 from, small abrasion dry red scab to bridge of nose, skin tear left hand 5th finger, dry brown skin to neck b/l, dry brown skin to all toes, dry toenails all toes, 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 red areas of skin inner red foot and inner left foot, red raised rash posteriior b/l thighs - MUSCULOSKELETAL/RHEUMATOLOGICAL Hx Musculoskeletal Disorders: Yes Hx Falls: Yes (fell 11/13/18) Hx Fractures: Yes (left femur) Hx Unsteady Gait: Yes (walker) - GASTROINTESTINAL Hx Gastrointestinal Disorders: Yes (colon polyps, r inguinal hernia) Hx Gall Bladder Disease: Yes Other/Comment: SMALL BOWEL OBSTRUCTION/NO SURGERY NEEDED - GENITOURINARY/GYNECOLOGICAL Hx Genitourinary Disorders: Yes Hx Prostate Problems: Yes (BPH) Hx Urinary Tract Infection: Yes Other/Comment: transuretheral resection 11 yrs ago - PSYCHIATRIC Hx Psychophysiologic Disorder: No Hx Emotional Abuse: No Hx Physical Abuse: No Hx Substance Use: No - SURGICAL HISTORY Hx Surgeries: Yes Hx Cholecystectomy: Yes Hx Orthopedic Surgery: Yes (orif left femur fx) Other/Comment: Left leg Sx. Left kidney tumor removal - ANESTHESIA Hx Anesthesia: Yes Hx Anesthesia Reactions: No Hx Malignant Hyperthermia: No Meds Allergies/Adverse Reactions: Allergies Allergy/AdvReac Type Severity Reaction Status Date / Time No Known Allergies Allergy Verified 07/23/18 14:56 - Medications Medications: Current Medications Amlodipine Besylate (Norvasc) 5 mg PO HS [facility] Last Admin: 11/17/18 22:31 Dose: 5 mg Atorvastatin Calcium (Lipitor) 10 mg PO HS [facility] Last Admin: 11/17/18 22:31 Dose: 10 mg Al Hydrox/Mg Hydrox/Simethicone 30 ml/Diphenhydramine HCl 75 mg/Lidocaine 30 ml 0 ml PO Q2H PRN PRN Reason: Mouth/Throat Pain Last Admin: 11/18/18 10:10 Dose: 30 bottle Al Hydrox/Mg Hydrox/Simethicone 30 ml/Diphenhydramine HCl 75 mg/Lidocaine 30 ml 0 ml PO Q2H PRN PRN Reason: Mouth/Throat Pain Ferrous Sulfate (Feosol) 324 mg PO TID [facility] Last Admin: 11/18/18 09:37 Dose: 324 mg Fluconazole (Diflucan) 50 mg PO DAILY [facility]; Protocol Last Admin: 11/18/18 10:08 Dose: 50 mg Hydralazine HCl (Apresoline) 50 mg PO TID [facility] Last Admin: 11/18/18 09:37 Dose: 50 mg Potassium Chloride (Potassium Chloride 10 Meq/100 Ml) 10 meq in 100 mls @ 50 mls/hr IVPB ONCE ONE Stop: 11/18/18 13:31 Last Admin: 11/18/18 12:27 Dose: 50 mls/hr Sodium Chloride (Sodium Chloride 0.45%) 1,000 mls @ 80 mls/hr IV .[id number] [facility] Last Admin: 11/18/18 12:30 Dose: 80 mls/hr Labetalol HCl (Trandate) 100 mg PO BID [facility] Last Admin: 11/18/18 09:36 Dose: 100 mg Finasteride [ Finasteride] 1 Mg ( Home Med) 1 mg PO DAILY [facility] Last Admin: 11/18/18 10:10 Dose: Not Given Quetiapine Fumarate (Seroquel) 12.5 mg PO HS PRN; Protocol PRN Reason: Agitation Last Admin: 11/17/18 22:33 Dose: 12.5 mg Tamsulosin HCl (Flomax) 0.4 mg PO DAILY [facility] Last Admin: 11/18/18 09:37 Dose: 0.4 mg Timolol Maleate (Timoptic 0.5% Ophth Soln) 1 drop OU DAILY [facility] Last Admin: 11/18/18 10:10 Dose: 1 drop Valacyclovir HCl (Valtrex) 500 mg PO BID [facility]; Protocol Last Admin: 11/18/18 09:36 Dose: 500 mg Results - Vital Signs Recent Vital Signs: Last Vital Signs Temp 98.0 F 11/18/18 05:26 Pulse 72 11/18/18 09:37 Resp 20 11/18/18 05:26 BP 142/76 11/18/18 09:37 Pulse Ox 95 11/18/18 05:26 - Labs Result Diagrams: 11/18/18 07:00 11/18/18 07:00 Labs: Laboratory Results - last 24 hr 11/18/18 11/18/18 07:00 07:00 WBC 4.5 RBC 2.77 L Hgb 9.0 L Hct 27.2 L MCV 98.2 MCH 32.5 MCHC 33.1 RDW 15.8 H Plt Count 55 L MPV 11.4 H Sodium 139 Potassium 3.4 L Chloride 112 H Carbon Dioxide 21 Anion Gap 9 L BUN 41 H Creatinine 3.8 H Est GFR ( Amer) 18 Est GFR (Non-Af Amer) 15 Random Glucose 99 Calcium 8.2 L Total Bilirubin 0.4 AST 45 ALT 18 Alkaline Phosphatase 105 Total Protein 5.7 L Albumin 2.7 L Globulin 3.1 Albumin/Globulin Ratio 0.9 L
--- NOTE | 2018-11-18 16:03 | PN ---
DATE: 11/18/2018 SUBJECTIVE: I saw him this morning with his . He is on a one-to-one. He has been a little bit confused lately. He had a neutropenic problem secondary to chemotherapy, it was 0.9 when he came in. He is also having some new speech issues right now. He is being seen by Infectious Disease, Oncology, Urology. He is on IV fluids, Apresoline, Diflucan, Feosol, finasteride, Flomax, Lipitor, potassium replacement, Seroquel, Valtrex, and Trandate. PHYSICAL EXAMINATION: GENERAL: He is alert and comfortable this morning. He is a little bit less agitated. Smiling, talking well, but there is a speech issue. VITAL SIGNS: He has a 98 temperature, 72 pulse, 142/76 blood pressure, 20 respiratory rate, 95% O2 sat. HEAD: Atraumatic, normocephalic. HEART: Regular rate. LUNGS: Decreased breath sounds. ABDOMEN: Soft. EXTREMITIES: No edema. NEUROLOGIC: He can swallow okay. LABORATORY DATA: He has 139 sodium, potassium is 3.4, replace potassium, BUN is 41, creatinine 3.8, that did go up. I will consult Renal, that went higher than it was the other day, which is a problem. Sugar is 99, calcium is 8.2. Total bili is 0.4, AST is 45, ALT is 18, alk phos is 105. White count is 4.5, much better, hemoglobin 9, hematocrit 27.2, platelets of 55. PLAN: I am going to increase his IV fluids to 80. I am going to call in Renal and hopefully, we can improve his kidney function. Continue aggressive treatment and care on Akash who has multiple issues now, neutropenic fever, MARIBETH, status post cystostomy, history of renal cell carcinoma. Wesly Collins DO
--- NOTE | 2018-11-18 21:09 | CP.PCM.PN ---
Subjective - Date & Time of Evaluation Date of Evaluation: 11/17/18 Time of Evaluation: 12:00 - Subjective Subjective: More alert Objective - Vital Signs/Intake and Output Vital Signs (last 24 hours): Temp Pulse Resp BP Pulse Ox 97.8 F 77 18 120/63 96 11/18/18 18:00 11/18/18 18:01 11/18/18 18:00 11/18/18 18:01 11/18/18 18:00 Intake and Output: 11/18/18 11/19/18 18:59 06:59 Intake Total 2760 Output Total 1400 Balance 1360 - Medications Medications: Current Medications Amlodipine Besylate (Norvasc) 5 mg PO HS [facility] Last Admin: 11/17/18 22:31 Dose: 5 mg Atorvastatin Calcium (Lipitor) 10 mg PO HS [facility] Last Admin: 11/17/18 22:31 Dose: 10 mg Al Hydrox/Mg Hydrox/Simethicone 30 ml/Diphenhydramine HCl 75 mg/Lidocaine 30 ml 0 ml PO Q2H PRN PRN Reason: Mouth/Throat Pain Last Admin: 11/18/18 17:07 Dose: 30 bottle Al Hydrox/Mg Hydrox/Simethicone 30 ml/Diphenhydramine HCl 75 mg/Lidocaine 30 ml 0 ml PO Q2H PRN PRN Reason: Mouth/Throat Pain Ferrous Sulfate (Feosol) 324 mg PO TID [facility] Last Admin: 11/18/18 18:00 Dose: 324 mg Fluconazole (Diflucan) 50 mg PO DAILY [facility]; Protocol Last Admin: 11/18/18 10:08 Dose: 50 mg Hydralazine HCl (Apresoline) 50 mg PO TID [facility] Last Admin: 11/18/18 18:01 Dose: 50 mg Sodium Chloride (Sodium Chloride 0.45%) 1,000 mls @ 80 mls/hr IV .[id number] [facility] Last Admin: 11/18/18 12:30 Dose: 80 mls/hr Labetalol HCl (Trandate) 100 mg PO BID [facility] Last Admin: 11/18/18 18:01 Dose: 100 mg Finasteride [ Finasteride] 1 Mg ( Home Med) 1 mg PO DAILY [facility] Last Admin: 11/18/18 10:10 Dose: Not Given Quetiapine Fumarate (Seroquel) 12.5 mg PO HS PRN; Protocol PRN Reason: Agitation Last Admin: 11/17/18 22:33 Dose: 12.5 mg Tamsulosin HCl (Flomax) 0.4 mg PO DAILY [facility] Last Admin: 11/18/18 09:37 Dose: 0.4 mg Timolol Maleate (Timoptic 0.5% Ophth Soln) 1 drop OU DAILY [facility] Last Admin: 11/18/18 10:10 Dose: 1 drop Valacyclovir HCl (Valtrex) 500 mg PO BID [facility]; Protocol Last Admin: 11/18/18 18:01 Dose: 500 mg - Labs Labs: 11/18/18 07:00 11/18/18 07:00 PT 15.0 SECONDS (9.4-12.5) H 11/13/18 14:50 INR 1.35 11/13/18 14:50 APTT 32.6 Seconds (26.9-38.3) 11/13/18 14:50 - Head Exam Head Exam: ATRAUMATIC - Eye Exam Eye Exam: Normal appearance - ENT Exam ENT Exam: Mucous Membranes Dry - Respiratory Exam Respiratory Exam: NORMAL BREATHING PATTERN - Cardiovascular Exam Cardiovascular Exam: +S1, +S2 - GI/Abdominal Exam GI & Abdominal Exam: Normal Bowel Sounds Assessment and Plan (1) Dehydration Assessment & Plan: improving IV fluids Status: Acute (2) Mucositis Assessment & Plan: improving with magic mouth wash IV fluids Status: Acute (3) Pancytopenia Assessment & Plan: neutropenia resolved s/p growth factors H/h stable thrombocytopenia stable Status: Acute (4) Lung cancer Assessment & Plan: stage IV outpatient treatment Status: Acute
--- NOTE | 2018-11-18 21:11 | CP.PCM.PN ---
Subjective - Date & Time of Evaluation Date of Evaluation: 11/18/18 Time of Evaluation: 17:00 - Subjective Subjective: More alert and tolerating more PO Objective - Vital Signs/Intake and Output Vital Signs (last 24 hours): Temp Pulse Resp BP Pulse Ox 97.8 F 77 18 120/63 96 11/18/18 18:00 11/18/18 18:01 11/18/18 18:00 11/18/18 18:01 11/18/18 18:00 Intake and Output: 11/18/18 11/19/18 18:59 06:59 Intake Total 2760 Output Total 1400 Balance 1360 - Medications Medications: Current Medications Amlodipine Besylate (Norvasc) 5 mg PO HS [facility] Last Admin: 11/17/18 22:31 Dose: 5 mg Atorvastatin Calcium (Lipitor) 10 mg PO [facility] Last Admin: 11/17/18 22:31 Dose: 10 mg Al Hydrox/Mg Hydrox/Simethicone 30 ml/Diphenhydramine HCl 75 mg/Lidocaine 30 ml 0 ml PO Q2H PRN PRN Reason: Mouth/Throat Pain Last Admin: 11/18/18 17:07 Dose: 30 bottle Al Hydrox/Mg Hydrox/Simethicone 30 ml/Diphenhydramine HCl 75 mg/Lidocaine 30 ml 0 ml PO Q2H PRN PRN Reason: Mouth/Throat Pain Ferrous Sulfate (Feosol) 324 mg PO TID [facility] Last Admin: 11/18/18 18:00 Dose: 324 mg Fluconazole (Diflucan) 50 mg PO DAILY [facility]; Protocol Last Admin: 11/18/18 10:08 Dose: 50 mg Hydralazine HCl (Apresoline) 50 mg PO TID [facility] Last Admin: 11/18/18 18:01 Dose: 50 mg Sodium Chloride (Sodium Chloride 0.45%) 1,000 mls @ 80 mls/hr IV .[id number] [facility] Last Admin: 11/18/18 12:30 Dose: 80 mls/hr Labetalol HCl (Trandate) 100 mg PO BID [facility] Last Admin: 11/18/18 18:01 Dose: 100 mg Finasteride [ Finasteride] 1 Mg ( Home Med) 1 mg PO DAILY [facility] Last Admin: 11/18/18 10:10 Dose: Not Given Quetiapine Fumarate (Seroquel) 12.5 mg PO HS PRN; Protocol PRN Reason: Agitation Last Admin: 11/17/18 22:33 Dose: 12.5 mg Tamsulosin HCl (Flomax) 0.4 mg PO DAILY [facility] Last Admin: 11/18/18 09:37 Dose: 0.4 mg Timolol Maleate (Timoptic 0.5% Ophth Soln) 1 drop OU DAILY [facility] Last Admin: 11/18/18 10:10 Dose: 1 drop Valacyclovir HCl (Valtrex) 500 mg PO BID [facility]; Protocol Last Admin: 11/18/18 18:01 Dose: 500 mg - Labs Labs: 11/18/18 07:00 11/18/18 07:00 PT 15.0 SECONDS (9.4-12.5) H 11/13/18 14:50 INR 1.35 11/13/18 14:50 APTT 32.6 Seconds (26.9-38.3) 11/13/18 14:50 - Head Exam Head Exam: ATRAUMATIC - Eye Exam Eye Exam: Normal appearance - ENT Exam ENT Exam: Mucous Membranes Dry - Respiratory Exam Respiratory Exam: NORMAL BREATHING PATTERN - Cardiovascular Exam Cardiovascular Exam: +S1, +S2 - GI/Abdominal Exam GI & Abdominal Exam: Normal Bowel Sounds Assessment and Plan (1) Dehydration Assessment & Plan: resolving IV fluids Status: Acute (2) Mucositis Assessment & Plan: improved magic mouth wash IV fluids Status: Acute (3) Pancytopenia Assessment & Plan: neutropenia resolved with growth factors H/H stable plt count improving Status: Acute (4) Lung cancer Assessment & Plan: stage IV outpatient treatment Status: Acute
[2018-11-19 07:34] LABS: ALB/GLOB RATIO 0.9 (1.1-1.8); ALBUMIN 2.6 g/dL (3.0-4.8); CALCIUM 8.3 mg/dL (8.4-10.5)
[2018-11-19 07:39] LABS: MEAN CELL VOLUME 98.5 fl (80.0-105.0); MEAN CORPUSCULAR HEMOGLOBIN 33.1 pg (25.0-35.0); MEAN CORPUSCULAR HGB CONC 33.6 g/dl (31.0-37.0); MEAN PLATELET VOLUME 10.1 fl (7.0-11.0); RBC 2.72 10^6/uL (3.5-6.1); WHITE BLOOD COUNT 4.6 10^3/uL (4.5-11.0)
[2018-11-19 08:13] LABS: PLATELET COUNT 49 10^3/uL (120.0-450.0)
[2018-11-19] MEDS: Sodium Chloride 0.45% 1,000 ML IV SCH (08:26)
[2018-11-19] MEDS: Aluminum Hydroxide/Magnesium 30 ML, DiphenhydrAMINE 75 MG, Lidocaine 2% Viscous 30 ML PO PRN ×2 (09:13→21:48)
[2018-11-19] MEDS: FINASTERIDE 1 MG PO SCH (09:14)
[2018-11-19] MEDS ORDERED: Potassium Chloride 20 mEq ER Tab PO ONE (10:57)
--- NOTE | 2018-11-19 13:07 | CP.PCM.PN ---
Subjective - Date & Time of Evaluation Date of Evaluation: 11/19/18 Time of Evaluation: 13:06 - Subjective Subjective: RENAL seen and examined feels ok no n/v vs as below gen: nad sclera: anicteric op: clear neck: supple cv: +S1+s2 no rub lungs reduced bs at bases abd: soft nt nd no organomegaly ext: trace edema neuro: following commands, bunt mildly confused psych: Nml affect skin: no rash gu: SP cath labs and imaging reviewed imp: ARF/ Neutropenic fever/ Urinary retention/ Anemia plan: MARIBETH - cr improving today continue to monitor on ivf abx per ID prbc per heme onc. Will continue to follow with you Objective - Vital Signs/Intake and Output Vital Signs (last 24 hours): Temp Pulse Resp BP Pulse Ox 98.5 F 74 19 118/53 L 96 11/19/18 12:00 11/19/18 10:00 11/19/18 12:00 11/19/18 12:00 11/19/18 06:00 Intake and Output: 11/19/18 11/19/18 06:59 18:59 Intake Total 1110 Output Total 600 Balance 510 - Medications Medications: Current Medications Amlodipine Besylate (Norvasc) 5 mg PO HS [facility] Last Admin: 11/18/18 21:35 Dose: 5 mg Atorvastatin Calcium (Lipitor) 10 mg PO HS [facility] Last Admin: 11/18/18 21:35 Dose: 10 mg Al Hydrox/Mg Hydrox/Simethicone 30 ml/Diphenhydramine HCl 75 mg/Lidocaine 30 ml 0 ml PO Q2H PRN PRN Reason: Mouth/Throat Pain Last Admin: 11/19/18 09:13 Dose: 30 bottle Al Hydrox/Mg Hydrox/Simethicone 30 ml/Diphenhydramine HCl 75 mg/Lidocaine 30 ml 0 ml PO Q2H PRN PRN Reason: Mouth/Throat Pain Ferrous Sulfate (Feosol) 324 mg PO TID [facility] Last Admin: 11/19/18 09:12 Dose: 324 mg Hydralazine HCl (Apresoline) 50 mg PO TID [facility] Last Admin: 11/19/18 09:12 Dose: 50 mg Sodium Chloride (Sodium Chloride 0.45%) 1,000 mls @ 80 mls/hr IV .[id number] [facility] Last Admin: 11/19/18 08:26 Dose: 80 mls/hr Labetalol HCl (Trandate) 100 mg PO BID [facility] Last Admin: 11/19/18 09:12 Dose: 100 mg Finasteride [ Finasteride] 1 Mg ( Home Med) 1 mg PO DAILY [facility] Last Admin: 11/19/18 09:14 Dose: Not Given Quetiapine Fumarate (Seroquel) 12.5 mg PO HS PRN; Protocol PRN Reason: Agitation Last Admin: 11/17/18 22:33 Dose: 12.5 mg Tamsulosin HCl (Flomax) 0.4 mg PO DAILY [facility] Last Admin: 11/19/18 09:12 Dose: 0.4 mg Timolol Maleate (Timoptic 0.5% [facility]) 1 drop OU DAILY [facility] Last Admin: 11/19/18 09:12 Dose: 1 drop Valacyclovir HCl (Valtrex) 500 mg PO BID [facility]; Protocol Last Admin: 11/19/18 09:11 Dose: 500 mg - Labs Labs: 11/19/18 06:30 11/19/18 06:30 PT 15.0 SECONDS (9.4-12.5) H 11/13/18 14:50 INR 1.35 11/13/18 14:50 APTT 32.6 Seconds (26.9-38.3) 11/13/18 14:50
--- NOTE | 2018-11-19 14:31 | PN ---
DATE: 11/19/2018 SUBJECTIVE: He is resting comfortably in bed. He slept well actually last night. He tells me he is doing better and feeling better. He is with family, his and his son. He is sitting out of bed to chair and is talking much better today. Yesterday, he had a little bit of a slur, today the slur has gone, he is also swallowing better. Definitely improved. He is more alert, more appropriate, a bit stronger. He had a neutropenic fever and sepsis with renal insufficiency, needing a suprapubic catheter by Urology. Family is getting ready for near their home. MEDICATIONS: He is on IV antibiotics. He is on Valtrex, Trandate, Timoptic, IV fluids, Seroquel, Norvasc, Lipitor, Flomax, finasteride, Feosol, Diflucan and Apresoline. I believe he is off the IV antibiotics OBJECTIVE: VITAL SIGNS: He has a 98 temperature, 74 pulse, 136/70 blood pressure, 19 respiratory rate and 96% O2 sat on room air. HEENT: Head is atraumatic, normocephalic. GENERAL: He is very alert. He is talking. He tells me he feels better. His speech is better. He is swallowing better. He his tongue midline. He swallows in front of me the saliva well. HEART: Regular rate. LUNGS: Decreased breath sounds, but clear. No wheezes, rhonchi or rales, which is good. ABDOMEN: Soft. EXTREMITIES: Better, he was able to stand and move to the chair, which is good for him. He is not as weak. LABORATORY DATA: He has a 4.6 white count, 9 hemoglobin, 26.8 hematocrit with 49 platelets. His white count increased from 0.9 to 4.6, which is great. He has 139 sodium, potassium 3.5, we will give him a little bit of potassium today, BUN 42, creatinine 3.3, the creatinine is coming down slowly, but still coming down, it is improving. GFR is up to 18, sugar is 95, calcium is 8.3, total bili is 0.3, AST is 39, ALT is 20, alkaline phosphatase 92. ASSESSMENT AND PLAN: he is making headway on his acute kidney injury, he is being seen by his oncologist, Renal, Infectious Disease. We are going to keep on keeping his body moving, get him out of bed to chair. He is on p.o. Diflucan, p.o. Valtrex. We will watch his kidney function, hopefully, tomorrow we can get him into this rehab facility that his family wants. Wesly Collins DO MTDD
--- NOTE | 2018-11-19 15:57 | CP.PCM.PN ---
Subjective - Date & Time of Evaluation Date of Evaluation: 11/19/18 Time of Evaluation: 09:20 - Subjective Subjective: Patient has more energy and is feeling much better, no fevers, swallowing better, much improved pain in the mouth. Objective - Vital Signs/Intake and Output Vital Signs (last 24 hours): Temp Pulse Resp BP Pulse Ox 98 F 75 19 138/68 96 11/19/18 06:00 11/19/18 09:12 11/19/18 06:00 11/19/18 09:12 11/19/18 06:00 Intake and Output: 11/19/18 11/19/18 06:59 18:59 Intake Total 1110 Output Total 600 Balance 510 - Medications Medications: Current Medications Amlodipine Besylate (Norvasc) 5 mg PO [facility] Last Admin: 11/18/18 21:35 Dose: 5 mg Atorvastatin Calcium (Lipitor) 10 mg PO [facility] Last Admin: 11/18/18 21:35 Dose: 10 mg Al Hydrox/Mg Hydrox/Simethicone 30 ml/Diphenhydramine HCl 75 mg/Lidocaine 30 ml 0 ml PO Q2H PRN PRN Reason: Mouth/Throat Pain Last Admin: 11/19/18 09:13 Dose: 30 bottle Al Hydrox/Mg Hydrox/Simethicone 30 ml/Diphenhydramine HCl 75 mg/Lidocaine 30 ml 0 ml PO Q2H PRN PRN Reason: Mouth/Throat Pain Ferrous Sulfate (Feosol) 324 mg PO TID [facility] Last Admin: 11/19/18 09:12 Dose: 324 mg Fluconazole (Diflucan) 50 mg PO DAILY [facility]; Protocol Last Admin: 11/19/18 09:11 Dose: 50 mg Hydralazine HCl (Apresoline) 50 mg PO TID [facility] Last Admin: 11/19/18 09:12 Dose: 50 mg Sodium Chloride (Sodium Chloride 0.45%) 1,000 mls @ 80 mls/hr IV .[id number] [facility] Last Admin: 11/19/18 08:26 Dose: 80 mls/hr Labetalol HCl (Trandate) 100 mg PO BID [facility] Last Admin: 11/19/18 09:12 Dose: 100 mg Finasteride [ Finasteride] 1 Mg ( [facility]) 1 mg PO DAILY [facility] Last Admin: 11/19/18 09:14 Dose: Not Given Quetiapine Fumarate (Seroquel) 12.5 mg PO HS PRN; Protocol PRN Reason: Agitation Last Admin: 11/17/18 22:33 Dose: 12.5 mg Tamsulosin HCl (Flomax) 0.4 mg PO DAILY [facility] Last Admin: 11/19/18 09:12 Dose: 0.4 mg Timolol Maleate (Timoptic 0.5% Ophth Soln) 1 drop OU DAILY [facility] Last Admin: 11/19/18 09:12 Dose: 1 drop Valacyclovir HCl (Valtrex) 500 mg PO BID [facility]; Protocol Last Admin: 11/19/18 09:11 Dose: 500 mg - Labs Labs: 11/19/18 06:30 11/19/18 06:30 PT 15.0 SECONDS (9.4-12.5) H 11/13/18 14:50 INR 1.35 11/13/18 14:50 APTT 32.6 Seconds (26.9-38.3) 11/13/18 14:50 - Constitutional Appears: Non-toxic, No Acute Distress, Chronically Ill - ENT Exam Additional comments: improved sores on the tongue and buccal mucosa - Respiratory Exam Respiratory Exam: Decreased Breath Sounds - Cardiovascular Exam Cardiovascular Exam: +S1, +S2 - GI/Abdominal Exam GI & Abdominal Exam: Soft. absent: Tenderness Assessment and Plan - Assessment and Plan (Free Text) Plan: Assessment S/P febrile neutropenia probable oral mucositis, clinically improving acute renal failure, possibly obstructive uropathy renal cell cancer on chemotherapy non-small cell lung cancer CAD HTN dyslipidemia Plan continue Valtrex and Diflucan will continue to monitor clinically follow up further recommendations of Urology and Renal
--- NOTE | 2018-11-19 21:04 | CP.PCM.PN ---
Subjective - Date & Time of Evaluation Date of Evaluation: 11/19/18 Time of Evaluation: 15:00 - Subjective Subjective: Feeling better, renal function improved. Objective - Vital Signs/Intake and Output Vital Signs (last 24 hours): Temp Pulse Resp BP Pulse Ox 98.5 F 93 H 19 110/56 L 96 11/19/18 12:00 11/19/18 18:00 11/19/18 18:00 11/19/18 18:00 11/19/18 06:00 Intake and Output: 11/19/18 11/20/18 18:59 06:59 Intake Total 834 Output Total 750 Balance 84 - Medications Medications: Current Medications Amlodipine Besylate (Norvasc) 5 mg PO HS [facility] Last Admin: 11/18/18 21:35 Dose: 5 mg Atorvastatin Calcium (Lipitor) 10 mg PO HS [facility] Last Admin: 11/18/18 21:35 Dose: 10 mg Al Hydrox/Mg Hydrox/Simethicone 30 ml/Diphenhydramine HCl 75 mg/Lidocaine 30 ml 0 ml PO Q2H PRN PRN Reason: Mouth/Throat Pain Last Admin: 11/19/18 09:13 Dose: 30 bottle Al Hydrox/Mg Hydrox/Simethicone 30 ml/Diphenhydramine HCl 75 mg/Lidocaine 30 ml 0 ml PO Q2H PRN PRN Reason: Mouth/Throat Pain Ferrous Sulfate (Feosol) 324 mg PO TID [facility] Last Admin: 11/19/18 17:58 Dose: 324 mg Hydralazine HCl (Apresoline) 50 mg PO TID [facility] Last Admin: 11/19/18 17:58 Dose: 50 mg Sodium Chloride (Sodium Chloride 0.45%) 1,000 mls @ 80 mls/hr IV .[id number] [facility] Last Admin: 11/19/18 08:26 Dose: 80 mls/hr Labetalol HCl (Trandate) 100 mg PO BID [facility] Last Admin: 11/19/18 17:57 Dose: 100 mg Finasteride [ Finasteride] 1 Mg ( Home Med) 1 mg PO DAILY [facility] Last Admin: 11/19/18 09:14 Dose: Not Given Quetiapine Fumarate (Seroquel) 12.5 mg PO HS PRN; Protocol PRN Reason: Agitation Last Admin: 11/17/18 22:33 Dose: 12.5 mg Tamsulosin HCl (Flomax) 0.4 mg PO DAILY [facility] Last Admin: 11/19/18 09:12 Dose: 0.4 mg Timolol Maleate (Timoptic 0.5% Oph Soln) 1 drop OU DAILY [facility] Last Admin: 11/19/18 09:12 Dose: 1 drop - Labs Labs: 11/19/18 06:30 11/19/18 06:30 PT 15.0 SECONDS (9.4-12.5) H 11/13/18 14:50 INR 1.35 11/13/18 14:50 APTT 32.6 Seconds (26.9-38.3) 11/13/18 14:50 - Head Exam Head Exam: ATRAUMATIC - Eye Exam Eye Exam: Normal appearance - ENT Exam ENT Exam: Mucous Membranes Dry - Respiratory Exam Respiratory Exam: NORMAL BREATHING PATTERN - Cardiovascular Exam Cardiovascular Exam: +S1, +S2 - GI/Abdominal Exam GI & Abdominal Exam: Normal Bowel Sounds Assessment and Plan (1) Dehydration Assessment & Plan: resolving IV fluids Status: Acute (2) Mucositis Assessment & Plan: resolving Iv fluids, magic mouth wash Status: Acute (3) Pancytopenia Assessment & Plan: neutropenia resolved s/p growth factors stable H/H stable plt count. Status: Acute (4) Lung cancer Assessment & Plan: stage IV outpatient treatment Status: Acute
[2018-11-20] MEDS: Sodium Chloride 0.45% 1,000 ML IV SCH ×3 (01:30→21:21)
[2018-11-20] MEDS: Aluminum Hydroxide/Magnesium 30 ML, DiphenhydrAMINE 75 MG, Lidocaine 2% Viscous 30 ML PO PRN (05:51)
[2018-11-20 06:46] LABS: HEMOGLOBIN 8.7 g/dL (14.0-18.0); MEAN CELL VOLUME 99.2 fl (80.0-105.0); MEAN CORPUSCULAR HEMOGLOBIN 33.1 pg (25.0-35.0); MEAN CORPUSCULAR HGB CONC 33.3 g/dl (31.0-37.0); MEAN PLATELET VOLUME 10.9 fl (7.0-11.0); RBC 2.63 10^6/uL (3.5-6.1); RED CELL DISTRIBUTION WIDTH 16.2 % (11.5-14.5); WHITE BLOOD COUNT 4.1 10^3/uL (4.5-11.0)
[2018-11-20 06:53] LABS: PLATELET COUNT 46 10^3/uL (120.0-450.0)
[2018-11-20 07:24] LABS: ALB/GLOB RATIO 0.8 (1.1-1.8); ALBUMIN 2.5 g/dL (3.0-4.8); CALCIUM 8.3 mg/dL (8.4-10.5)
[2018-11-20] MEDS: FINASTERIDE 1 MG PO SCH (10:34)
--- NOTE | 2018-11-20 10:51 | CP.PCM.APN ---
Subjective - Date & Time of Evaluation Date of Evaluation: 11/20/18 Time of Evaluation: 09:30 - Subjective Subjective: pt seen and examined at bedside with family present . pt remains with 1:1 sitter for safety per [facility] staff pt offfers o complaints when questioned Review of Systems - Review of Systems All systems: reviewed and no additional remarkable complaints except Objective - Vital Signs/Intake and Output Vital Signs (last 24 hours): Temp Pulse Resp BP Pulse Ox 98.4 F 73 20 131/64 96 11/20/18 06:00 11/20/18 06:00 11/20/18 06:00 11/20/18 10:34 11/20/18 06:00 Intake and Output: 11/20/18 11/20/18 06:59 18:59 Intake Total 1659 180 Output Total 750 375 Balance 909 -195 - Medications Medications: Current Medications Amlodipine Besylate (Norvasc) [address] [facility] Last Admin: 11/19/18 21:41 Dose: 5 mg Atorvastatin Calcium (Lipitor) [address] [facility] Last Admin: 11/19/18 21:41 Dose: 10 mg Al Hydrox/Mg Hydrox/Simethicone 30 ml/Diphenhydramine HCl 75 mg/Lidocaine 30 ml 0 ml PO Q2H PRN PRN Reason: Mouth/Throat Pain Last Admin: 11/20/18 05:51 Dose: 30 bottle Al Hydrox/Mg Hydrox/Simethicone 30 ml/Diphenhydramine HCl 75 mg/Lidocaine 30 ml 0 ml PO Q2H PRN PRN Reason: Mouth/Throat Pain Ferrous Sulfate (Feosol) 324 mg PO TID [facility] Last Admin: 11/20/18 10:34 Dose: 324 mg Hydralazine HCl (Apresoline) 50 mg PO TID [facility] Last Admin: 11/20/18 10:34 Dose: 50 mg Sodium Chloride (Sodium Chloride 0.45%) 1,000 mls @ 80 mls/hr IV .[id number] [facility] Last Admin: 11/20/18 01:30 Dose: Not Given Labetalol HCl (Trandate) 100 mg PO BID [facility] Last Admin: 11/20/18 10:33 Dose: 100 mg Finasteride [ Finasteride] 1 Mg ( Home Med) 1 mg PO DAILY [facility] Last Admin: 11/20/18 10:34 Dose: Not Given Quetiapine Fumarate (Seroquel) 12.5 mg PO HS PRN; Protocol PRN Reason: Agitation Last Admin: 11/19/18 21:42 Dose: 12.5 mg Tamsulosin HCl (Flomax) 0.4 mg PO DAILY [facility] Last Admin: 11/20/18 10:33 Dose: 0.4 mg Timolol Maleate (Timoptic 0.5% Oph Soln) 1 drop OU DAILY [facility] Last Admin: 11/20/18 10:34 Dose: 1 drop - Labs Labs: 11/20/18 06:10 11/20/18 06:10 PT 15.0 SECONDS (9.4-12.5) H 11/13/18 14:50 INR 1.35 11/13/18 14:50 APTT 32.6 Seconds (26.9-38.3) 11/13/18 14:50 - Constitutional Appears: No Acute Distress - Head Exam Head Exam: NORMOCEPHALIC - Eye Exam Pupil Exam: PERRL - ENT Exam ENT Exam: Mucous Membranes Moist - Respiratory Exam Respiratory Exam: Decreased Breath Sounds, NORMAL BREATHING PATTERN - Cardiovascular Exam Cardiovascular Exam: +S1, +S2 - GI/Abdominal Exam GI & Abdominal Exam: Soft (suprapubic catheter intact , draining yellow urine ) - Psychiatric Exam Psychiatric exam: Normal Mood Additional comments: occasional confusion - Skin Skin Exam: Dry, Intact, Normal Color, Warm Assessment and Plan - Assessment and Plan (Free Text) Plan: 83 yr old male with pmh sig for renal cell ca, non small cell ca on chemo initailly admitted with neutropeic fever and pancytopenia being evaluted by ID, Renal and oncology #neutropenic fever resolved ID recs reviewed #pancytopenia s/p neutropenic precautions wbc improved from 0.9 on admission to 4.1 today ANC improved fro 0.[address] jean-baptiste notes reviewed pt s/p growth factor , stable h/h for outpt follow #ARF/MARIBETH in setting of urinary retention s/p supbabubic cathether Renal and Nephro recs noted renal function noted worsening from 29 and 1.9 on 11/15 to 43 and 2.9 over the past several days pt remains of ivf at 80 /hr #AMS/ delirium improving mentation will trial off 1:1 , discuss with RN Dr Ford recs reviewed , pt on Seroquel PRN regimen PMD notes reviewed re plan for [facility] of family's choice, spoke to Dr Collins regard ing plan. Discuss clinical picture with cm Eloisa Vigil BPCI/TIC - BPCIA/TIC Educated pt/family on BPCIA/CIR/Med to Bed Programs: N/A Flyers given, including CMS Beneficiary letter: N/A Pt/family verbalized understanding & agreed to program: N/A
--- NOTE | 2018-11-20 11:16 | PN ---
DATE: 11/20/2018 SUBJECTIVE: He is alert, presently confused and on one to one. No complaints. No pain. He is eating. He is pleasantly feeling better. PHYSICAL EXAMINATION: VITAL SIGNS: He has 98.4 temperature, 73 pulse, 139/70 blood pressure, 20 respiratory rate and 96% O2 sat on room air. HEENT: Head is atraumatic and normocephalic. Speech is better. HEART: Regular rate. LUNGS: Decreased breath sounds. ABDOMEN: Soft. EXTREMITIES: No edema. MEDICATIONS: He is on Apresoline, Feosol, finasteride, Flomax, Lipitor, amlodipine, Seroquel, IV fluids, Timolol and and labetalol. LABORATORY DATA: Sodium 138, potassium 3.7 BUN 43, creatinine 2.9 it is coming down. He has suprapubic catheter in place. GFR is 21, sugar is 86, calcium is 8.3, total bilirubin 0.3, AST is 44, ALT is 19 and alk phos is 89. White count is 4.1, hemoglobin 8.7, hematocrit 26.1 and platelet of 46. He is being seen by Infectious Disease, Hematology, Renal and Psychiatry also Urology for this suprapubic catheter. He is definitely improving overall. He had neutropenic fever, acute kidney failure, possible obstructive uropathy with suprapubic catheter placement. He has renal cell carcinoma on chemotherapy, very low white count, also history of non-small cell lung cancer. See a psychiatry one-to-one. We will check his labs tomorrow. Head of bed to chair. Wesly Collins DO MTDD
--- NOTE | 2018-11-20 13:34 | CP.PCM.PN ---
Subjective - Date & Time of Evaluation Date of Evaluation: 11/20/18 Time of Evaluation: 10:45 - Subjective Subjective: Swallowing and eating better, no fevers, no abdominal pain, much improved pain in the mouth, no shortness of breath at rest. Objective - Vital Signs/Intake and Output Vital Signs (last 24 hours): Temp Pulse Resp BP Pulse Ox 98.5 F 74 19 145/77 96 11/19/18 12:00 11/19/18 14:33 11/19/18 12:00 11/19/18 14:33 11/19/18 06:00 Intake and Output: 11/19/18 11/19/18 06:59 18:59 Intake Total 1110 Output Total 600 Balance 510 - Medications Medications: Current Medications Amlodipine Besylate (Norvasc) 5 mg PO HS [facility] Last Admin: 11/18/18 21:35 Dose: 5 mg Atorvastatin Calcium (Lipitor) 10 mg PO HS [facility] Last Admin: 11/18/18 21:35 Dose: 10 mg Al Hydrox/Mg Hydrox/Simethicone 30 ml/Diphenhydramine HCl 75 mg/Lidocaine 30 ml 0 ml PO Q2H PRN PRN Reason: Mouth/Throat Pain Last Admin: 11/19/18 09:13 Dose: 30 bottle Al Hydrox/Mg Hydrox/Simethicone 30 ml/Diphenhydramine HCl 75 mg/Lidocaine 30 ml 0 ml PO Q2H PRN PRN Reason: Mouth/Throat Pain Ferrous Sulfate (Feosol) 324 mg PO TID [facility] Last Admin: 11/19/18 14:33 Dose: 324 mg Hydralazine HCl (Apresoline) 50 mg PO TID [facility] Last Admin: 11/19/18 14:33 Dose: 50 mg Sodium Chloride (Sodium Chloride 0.45%) 1,000 mls @ 80 mls/hr IV .[id number] [facility] Last Admin: 11/19/18 08:26 Dose: 80 mls/hr Labetalol HCl (Trandate) 100 mg PO BID [facility] Last Admin: 11/19/18 09:12 Dose: 100 mg Finasteride [ Finasteride] 1 Mg ( Home Med) 1 mg PO DAILY [facility] Last Admin: 11/19/18 09:14 Dose: Not Given Quetiapine Fumarate (Seroquel) 12.5 mg PO HS PRN; Protocol PRN Reason: Agitation Last Admin: 11/17/18 22:33 Dose: 12.5 mg Tamsulosin HCl (Flomax) 0.4 mg PO DAILY [facility] Last Admin: 11/19/18 09:12 Dose: 0.4 mg Timolol Maleate (Timoptic 0.5% Ophth Soln) 1 drop OU DAILY [facility] Last Admin: 11/19/18 09:12 Dose: 1 drop Valacyclovir HCl (Valtrex) 500 mg PO BID [facility]; Protocol Last Admin: 11/19/18 09:11 Dose: 500 mg - Labs Labs: 11/19/18 06:30 11/19/18 06:30 PT 15.0 SECONDS (9.4-12.5) H 11/13/18 14:50 INR 1.35 11/13/18 14:50 APTT 32.6 Seconds (26.9-38.3) 11/13/18 14:50 - Constitutional Appears: Chronically Ill - Head Exam Head Exam: NORMAL INSPECTION - ENT Exam Additional comments: improved sores / ulcers in the tongue and buccal mucosa - Respiratory Exam Respiratory Exam: Decreased Breath Sounds - Cardiovascular Exam Cardiovascular Exam: +S1, +S2 - GI/Abdominal Exam GI & Abdominal Exam: Soft. absent: Tenderness Assessment and Plan - Assessment and Plan (Free Text) Plan: Assessment S/P febrile neutropenia probable oral mucositis, clinically improving acute renal failure, possibly obstructive uropathy renal cell cancer on chemotherapy non-small cell lung cancer CAD HTN dyslipidemia Plan continue Valtrex and Diflucan for up to 7 days total will continue to monitor clinically follow up further recommendations of Urology and Renal
--- NOTE | 2018-11-20 14:05 | CP.PCM.PN ---
Subjective - Date & Time of Evaluation Date of Evaluation: 11/20/18 Time of Evaluation: 14:04 - Subjective Subjective: RENAL seen and examined denies n/v vs as below gen: nad sclera: anicteric op: clear neck: supple cv: +S1+s2 no rub lungs reduced bs at bases abd: soft nt nd no organomegaly ext: trace edema neuro: following commands, a+ox3 psych: Nml affect skin: no rash gu: SP cath labs and imaging reviewed imp: ARF/ Neutropenic fever/ Urinary retention/ Anemia plan: MARIBETH - cr continues to slowly improve abx per ID prbc per heme onc. Will continue to follow with you Objective - Vital Signs/Intake and Output Vital Signs (last 24 hours): Temp Pulse Resp BP Pulse Ox 97.9 F 67 18 126/68 96 11/20/18 12:00 11/20/18 12:00 11/20/18 12:00 11/20/18 12:00 11/20/18 06:00 Intake and Output: 11/20/18 11/20/18 06:59 18:59 Intake Total 1659 180 Output Total 750 375 Balance 909 -195 - Medications Medications: Current Medications Amlodipine Besylate (Norvasc) 5 mg PO HS [facility] Last Admin: 11/19/18 21:41 Dose: 5 mg Atorvastatin Calcium (Lipitor) 10 mg PO HS [facility] Last Admin: 11/19/18 21:41 Dose: 10 mg Al Hydrox/Mg Hydrox/Simethicone 30 ml/Diphenhydramine HCl 75 mg/Lidocaine 30 ml 0 ml PO Q2H PRN PRN Reason: Mouth/Throat Pain Last Admin: 11/20/18 05:51 Dose: 30 bottle Al Hydrox/Mg Hydrox/Simethicone 30 ml/Diphenhydramine HCl 75 mg/Lidocaine 30 ml 0 ml PO Q2H PRN PRN Reason: Mouth/Throat Pain Ferrous Sulfate (Feosol) 324 mg PO TID [facility] Last Admin: 11/20/18 10:34 Dose: 324 mg Hydralazine HCl (Apresoline) 50 mg PO TID [facility] Last Admin: 11/20/18 10:34 Dose: 50 mg Sodium Chloride (Sodium Chloride 0.45%) 1,000 mls @ 80 mls/hr IV .[id number] [facility] Last Admin: 11/20/18 01:30 Dose: Not Given Labetalol HCl (Trandate) 100 mg PO BID [facility] Last Admin: 11/20/18 10:33 Dose: 100 mg Finasteride [ Finasteride] 1 Mg ( Home Med) 1 mg PO DAILY [facility] Last Admin: 11/20/18 10:34 Dose: Not Given Quetiapine Fumarate (Seroquel) 12.5 mg PO HS PRN; Protocol PRN Reason: Agitation Last Admin: 11/19/18 21:42 Dose: 12.5 mg Tamsulosin HCl (Flomax) 0.4 mg PO DAILY [facility] Last Admin: 11/20/18 10:33 Dose: 0.4 mg Timolol Maleate (Timoptic 0.5% [facility]) 1 drop OU DAILY [facility] Last Admin: 11/20/18 10:34 Dose: 1 drop - Labs Labs: 11/20/18 06:10 11/20/18 06:10 PT 15.0 SECONDS (9.4-12.5) H 11/13/18 14:50 INR 1.35 11/13/18 14:50 APTT 32.6 Seconds (26.9-38.3) 11/13/18 14:50
--- NOTE | 2018-11-20 21:27 | CP.PCM.PN ---
Subjective - Date & Time of Evaluation Date of Evaluation: 11/20/18 Time of Evaluation: 18:00 - Subjective Subjective: Feeling better. Objective - Vital Signs/Intake and Output Vital Signs (last 24 hours): Temp Pulse Resp BP Pulse Ox 97.6 F 71 20 133/66 96 11/20/18 17:47 11/20/18 18:17 11/20/18 17:47 11/20/18 21:21 11/20/18 06:00 Intake and Output: 11/20/18 11/21/18 18:59 06:59 Intake Total 180 1080 Output Total 375 700 Balance -195 380 - Medications Medications: Current Medications Amlodipine Besylate (Norvasc) 5 mg PO HS [facility] Last Admin: 11/20/18 21:21 Dose: 5 mg Atorvastatin Calcium (Lipitor) 10 mg PO HS [facility] Last Admin: 11/20/18 21:21 Dose: 10 mg Al Hydrox/Mg Hydrox/Simethicone 30 ml/Diphenhydramine HCl 75 mg/Lidocaine 30 ml 0 ml PO Q2H PRN PRN Reason: Mouth/Throat Pain Last Admin: 11/20/18 05:51 Dose: 30 bottle Al Hydrox/Mg Hydrox/Simethicone 30 ml/Diphenhydramine HCl 75 mg/Lidocaine 30 ml 0 ml PO Q2H PRN PRN Reason: Mouth/Throat Pain Ferrous Sulfate (Feosol) 324 mg PO TID [facility] Last Admin: 11/20/18 18:16 Dose: 324 mg Hydralazine HCl (Apresoline) 50 mg PO TID [facility] Last Admin: 11/20/18 18:17 Dose: 50 mg Sodium Chloride (Sodium Chloride 0.45%) 1,000 mls @ 80 mls/hr IV .[id number] [facility] Last Admin: 11/20/18 21:21 Dose: 80 mls/hr Labetalol HCl (Trandate) 100 mg PO BID [facility] Last Admin: 11/20/18 18:17 Dose: 100 mg Finasteride [ Finasteride] 1 Mg ( Home Med) 1 mg PO DAILY [facility] Last Admin: 11/20/18 10:34 Dose: Not Given Quetiapine Fumarate (Seroquel) 12.5 mg PO HS PRN; Protocol PRN Reason: Agitation Last Admin: 11/20/18 21:21 Dose: 12.5 mg Tamsulosin HCl (Flomax) 0.4 mg PO DAILY [facility] Last Admin: 11/20/18 10:33 Dose: 0.4 mg Timolol Maleate (Timoptic 0.5% Oph Soln) 1 drop OU DAILY [facility] Last Admin: 11/20/18 10:34 Dose: 1 drop - Labs Labs: 11/20/18 06:10 11/20/18 06:10 PT 15.0 SECONDS (9.4-12.5) H 11/13/18 14:50 INR 1.35 11/13/18 14:50 APTT 32.6 Seconds (26.9-38.3) 11/13/18 14:50 - Head Exam Head Exam: ATRAUMATIC - Eye Exam Eye Exam: Normal appearance - ENT Exam ENT Exam: Mucous Membranes Dry - Respiratory Exam Respiratory Exam: NORMAL BREATHING PATTERN - Cardiovascular Exam Cardiovascular Exam: +S1, +S2 - GI/Abdominal Exam GI & Abdominal Exam: Normal Bowel Sounds Assessment and Plan (1) Mucositis Assessment & Plan: improving IV fluids, magic mouth wash Status: Acute (2) Pancytopenia Assessment & Plan: secondary to chemotherapy neutropenia resolved s/p growth factor support stable plt count Status: Acute (3) Lung cancer Assessment & Plan: stage IV outpatient chemotherapy Status: Acute
[2018-11-20 23:43] VITALS: RESP 18
[2018-11-21] MEDS: Sodium Chloride 0.45% 1,000 ML IV SCH (02:09)
[2018-11-21 05:50] VITALS: BP 137/74; PULSE 68; TEMP 97.7; O2SAT 94
[2018-11-21 07:10] LABS: HEMOGLOBIN 8.8 g/dL (14.0-18.0); MEAN CELL VOLUME 99.2 fl (80.0-105.0); MEAN CORPUSCULAR HEMOGLOBIN 33.2 pg (25.0-35.0); MEAN CORPUSCULAR HGB CONC 33.5 g/dl (31.0-37.0); MEAN PLATELET VOLUME 9.3 fl (7.0-11.0); RBC 2.65 10^6/uL (3.5-6.1); RED CELL DISTRIBUTION WIDTH 16.1 % (11.5-14.5)
[2018-11-21 07:27] LABS: ALB/GLOB RATIO 0.9 (1.1-1.8); ALBUMIN 2.5 g/dL (3.0-4.8)
[2018-11-21 07:42] LABS: PLATELET COUNT 48 10^3/uL (120.0-450.0)
--- NOTE | 2018-11-21 08:58 | CP.PCM.PN ---
Subjective - Date & Time of Evaluation Date of Evaluation: 11/21/18 Time of Evaluation: 08:57 - Subjective Subjective: RENAL seen and examined denies n/v vs as below gen: nad sclera: anicteric op: clear neck: supple cv: +S1+s2 no rub lungs reduced bs at bases abd: soft nt nd no organomegaly ext: trace edema neuro: following commands, a+ox3 psych: Nml affect skin: no rash gu: SP cath labs and imaging reviewed imp: ARF/ Neutropenic fever/ Urinary retention/ Anemia plan: MARIBETH - cr continues to slowly improve continue to monitor abx per ID prbc per heme onc. Will continue to follow with you Objective - Vital Signs/Intake and Output Vital Signs (last 24 hours): Temp Pulse Resp BP Pulse Ox 97.7 F 68 18 137/74 94 L 11/21/18 06:00 11/21/18 06:00 11/21/18 06:00 11/21/18 06:00 11/21/18 06:00 Intake and Output: 11/21/18 11/21/18 06:59 18:59 Intake Total 2060 Output Total 1250 Balance 810 - Medications Medications: Current Medications Amlodipine Besylate (Norvasc) 5 mg PO HS [facility] Last Admin: 11/20/18 21:21 Dose: 5 mg Atorvastatin Calcium (Lipitor) 10 mg PO HS [facility] Last Admin: 11/20/18 21:21 Dose: 10 mg Al Hydrox/Mg Hydrox/Simethicone 30 ml/Diphenhydramine HCl 75 mg/Lidocaine 30 ml 0 ml PO Q2H PRN PRN Reason: Mouth/Throat Pain Last Admin: 11/20/18 05:51 Dose: 30 bottle Al Hydrox/Mg Hydrox/Simethicone 30 ml/Diphenhydramine HCl 75 mg/Lidocaine 30 ml 0 ml PO Q2H PRN PRN Reason: Mouth/Throat Pain Ferrous Sulfate (Feosol) 324 mg PO TID [facility] Last Admin: 11/20/18 18:16 Dose: 324 mg Hydralazine HCl (Apresoline) 50 mg PO TID [facility] Last Admin: 11/20/18 18:17 Dose: 50 mg Sodium Chloride (Sodium Chloride 0.45%) 1,000 mls @ 80 mls/hr IV .[id number] [facility] Last Admin: 11/21/18 02:09 Dose: Not Given Labetalol HCl (Trandate) 100 mg PO BID [facility] Last Admin: 11/20/18 18:17 Dose: 100 mg Finasteride [ Finasteride] 1 Mg ( Home Med) 1 mg PO DAILY [facility] Last Admin: 11/20/18 10:34 Dose: Not Given Quetiapine Fumarate (Seroquel) 12.5 mg PO HS PRN; Protocol PRN Reason: Agitation Last Admin: 11/20/18 21:21 Dose: 12.5 mg Tamsulosin HCl (Flomax) 0.4 mg PO DAILY [facility] Last Admin: 11/20/18 10:33 Dose: 0.4 mg Timolol Maleate (Timoptic 0.5% [facility]) 1 drop OU DAILY [facility] Last Admin: 11/20/18 10:34 Dose: 1 drop - Labs Labs: 11/21/18 06:30 11/21/18 06:30 PT 15.0 SECONDS (9.4-12.5) H 11/13/18 14:50 INR 1.35 11/13/18 14:50 APTT 32.6 Seconds (26.9-38.3) 11/13/18 14:50
[2018-11-21] MEDS: FINASTERIDE 1 MG PO SCH (09:14)
--- NOTE | 2018-11-21 11:24 | DS ---
HISTORY OF PRESENT ILLNESS: The patient is off the one-to-one which is great. He is alert and comfortable in bed. I believe he is going to health subacute rehab which is great. I will keep him on the IV fluids for 7 more days. His kidney functions are coming down nicely, but I am still keeping him on the IV fluids. He also has suprapubic catheter which is also stay in. He should follow up with the urologist, but in the outpatient. He is alert, talking, and eating. He needs physical therapy and he needs IV fluids and watching the suprapubic catheter. MEDICATIONS: He is on Apresoline, Feosol, finasteride, Flomax, Lipitor, Norvasc, Seroquel, Timoptic, and Trandate. PHYSICAL EXAMINATION: VITAL SIGNS: He has 97.7 temperature, 68 pulse, 137/74 blood pressure, 18 respiratory rate, and 94% O2 saturation on room air. HEENT: His head is atraumatic and normocephalic. HEART: Regular rate. LUNGS: Decreased with sounds, but clear. ABDOMEN: Soft. He has suprapubic catheter. It is draining nicely. EXTREMITIES: No edema. LABORATORY DATA: He has a white count of 4, hemoglobin 8.8, hematocrit 26.3, platelets are 48, getting better. Sodium 138, potassium 3.8, BUN is 39, creatinine 2.5, coming down nicely. He has got little more to go. Keep the IV fluids GFR is up to 25, sugar is 90, calcium is 8, total bili is 0.4, AST is 40, ALT is 21, alk phos 88, and total protein is 5.4. ASSESSMENT AND PLAN: I will continue aggressive treatment and care. He is being seen by Hematology and Oncology; he will be started on chemotherapy, the renal doctor and Infectious Disease. Now he is off the one-to-one. I think he can go to the subacute rehab today which is great. He had neutropenic fever status post chemotherapy. White count improved; platelets improving. BUN and creatinine are improving with the suprapubic catheter and he is off the one-to-one. Wesly Collins DO MTDD
--- NOTE | 2018-11-21 14:30 | CP.PCM.PN ---
Subjective - Date & Time of Evaluation Date of Evaluation: 11/21/18 Time of Evaluation: 09:10 - Subjective Subjective: Comfortable in bed, no fevers, not in distress. Objective - Vital Signs/Intake and Output Vital Signs (last 24 hours): Temp Pulse Resp BP Pulse Ox 97.9 F 67 18 126/68 96 11/20/18 12:00 11/20/18 12:00 11/20/18 12:00 11/20/18 12:00 11/20/18 06:00 Intake and Output: 11/20/18 11/20/18 06:59 18:59 Intake Total 1659 180 Output Total 750 375 Balance 909 -195 - Medications Medications: Current Medications Amlodipine Besylate (Norvasc) 5 mg PO HS [facility] Last Admin: 11/19/18 21:41 Dose: 5 mg Atorvastatin Calcium (Lipitor) 10 mg PO HS [facility] Last Admin: 11/19/18 21:41 Dose: 10 mg Al Hydrox/Mg Hydrox/Simethicone 30 ml/Diphenhydramine HCl 75 mg/Lidocaine 30 ml 0 ml PO Q2H PRN PRN Reason: Mouth/Throat Pain Last Admin: 11/20/18 05:51 Dose: 30 bottle Al Hydrox/Mg Hydrox/Simethicone 30 ml/Diphenhydramine HCl 75 mg/Lidocaine 30 ml 0 ml PO Q2H PRN PRN Reason: Mouth/Throat Pain Ferrous Sulfate (Feosol) 324 mg PO TID [facility] Last Admin: 11/20/18 10:34 Dose: 324 mg Hydralazine HCl (Apresoline) 50 mg PO TID [facility] Last Admin: 11/20/18 10:34 Dose: 50 mg Sodium Chloride (Sodium Chloride 0.45%) 1,000 mls @ 80 mls/hr IV .[id number] [facility] Last Admin: 11/20/18 01:30 Dose: Not Given Labetalol HCl (Trandate) 100 mg PO BID [facility] Last Admin: 11/20/18 10:33 Dose: 100 mg Finasteride [ Finasteride] 1 Mg ( Home Med) 1 mg PO DAILY [facility] Last Admin: 11/20/18 10:34 Dose: Not Given Quetiapine Fumarate (Seroquel) 12.5 mg PO HS PRN; Protocol PRN Reason: Agitation Last Admin: 11/19/18 21:42 Dose: 12.5 mg Tamsulosin HCl (Flomax) 0.4 mg PO DAILY [facility] Last Admin: 11/20/18 10:33 Dose: 0.4 mg Timolol Maleate (Timoptic 0.5% Ophth Soln) 1 drop OU DAILY [facility] Last Admin: 11/20/18 10:34 Dose: 1 drop - Labs Labs: 11/20/18 06:10 11/20/18 06:10 PT 15.0 SECONDS (9.4-12.5) H 11/13/18 14:50 INR 1.35 11/13/18 14:50 APTT 32.6 Seconds (26.9-38.3) 11/13/18 14:50 - Constitutional Appears: Chronically Ill - Head Exam Head Exam: NORMAL INSPECTION - ENT Exam Additional comments: decreased size of ulcers on the tongue and buccal mucosa - Respiratory Exam Respiratory Exam: Decreased Breath Sounds - Cardiovascular Exam Cardiovascular Exam: +S1, +S2 - GI/Abdominal Exam GI & Abdominal Exam: Soft. absent: Tenderness Assessment and Plan - Assessment and Plan (Free Text) Plan: Assessment S/P febrile neutropenia probable oral mucositis, clinically improving acute renal failure, possibly obstructive uropathy renal cell cancer on chemotherapy non-small cell lung cancer CAD HTN dyslipidemia Plan continue Valtrex and Diflucan for up to 7 days total (day 6 today) will continue to monitor clinically follow up further recommendations of Urology and Renal
--- NOTE | 2018-11-22 12:07 | CP.PCM.PN ---
Subjective - Date & Time of Evaluation Date of Evaluation: 11/21/18 Time of Evaluation: 11:00 - Subjective Subjective: Feeling better Objective - Vital Signs/Intake and Output Vital Signs (last 24 hours): Temp Pulse Resp BP Pulse Ox 97.7 F 68 18 137/74 94 L 11/21/18 06:00 11/21/18 06:00 11/21/18 06:00 11/21/18 06:00 11/21/18 06:00 - Labs Labs: 11/21/18 06:30 11/21/18 06:30 PT 15.0 SECONDS (9.4-12.5) H 11/13/18 14:50 INR 1.35 11/13/18 14:50 APTT 32.6 Seconds (26.9-38.3) 11/13/18 14:50 - Head Exam Head Exam: ATRAUMATIC - Eye Exam Eye Exam: Normal appearance - ENT Exam ENT Exam: Mucous Membranes Dry - Respiratory Exam Respiratory Exam: NORMAL BREATHING PATTERN - Cardiovascular Exam Cardiovascular Exam: +S1, +S2 - GI/Abdominal Exam GI & Abdominal Exam: Normal Bowel Sounds Assessment and Plan (1) Mucositis Assessment & Plan: resolving tolerating PO magic mouth wash PRN Status: Acute (2) Pancytopenia Assessment & Plan: neutropenia resolved stable H/H and plt count outpatient f/u Status: Acute (3) Lung cancer Assessment & Plan: outpatient treatment Status: Acute
== END 2018-11-21 14:40 | DRG 872 ==
LOC: ED 12:41 → ERH 16:56 → 2RNO 11-14 19:55
PROVIDERS: ADMIT Family Medicine; ATTEND Family Medicine
PROC: 0T9B30Z Drainage of Bladder with Drainage Device, Percutaneous Approach (ICD-10-PCS; principal; 2018-11-16)
DX: A41.9 Sepsis, unspecified organism (principal); C34.90 Malignant neoplasm of unspecified part of unspecified bronchus or lung; N17.9 Acute kidney failure, unspecified; F05 Delirium due to known physiological condition; K56.609 Unspecified intestinal obstruction, unspecified as to partial versus complete obstruction; D70.1 Agranulocytosis secondary to cancer chemotherapy; R50.81 Fever presenting with conditions classified elsewhere; T45.1X5A Adverse effect of antineoplastic and immunosuppressive drugs, initial encounter; N13.9 Obstructive and reflux uropathy, unspecified; K12.31 Oral mucositis (ulcerative) due to antineoplastic therapy; E86.0 Dehydration; N40.1 Benign prostatic hyperplasia with lower urinary tract symptoms; R33.8 Other retention of urine; I10 Essential (primary) hypertension; I25.10 Atherosclerotic heart disease of native coronary artery without angina pectoris; E78.5 Hyperlipidemia, unspecified; E78.00 Pure hypercholesterolemia, unspecified; H40.9 Unspecified glaucoma; Z85.528 Personal history of other malignant neoplasm of kidney; Z90.5 Acquired absence of kidney; Z87.891 Personal history of nicotine dependence

== ENCOUNTER 2018-11-29 12:27 | Observation (INO) | payer MEDICARE ==
[2018-11-29 12:28] VITALS: BMI 25.8
--- NOTE | 2018-11-29 13:04 | ED PDOC ---
Arrival/HPI - General Chief Complaint: Male Genitourinary Historian: Patient, Spouse - History of Present Illness Narrative History of Present Illness (Text): 11/29/18 12:57 83 y/o M w/ h/o HLD, HTN, CAD, partial nephrectomy s/p suprapubic catheter placement(11/19/18) presenting to the Emergency Room for a dislodged suprapibic catheter. Patient was noted to have bleeding from the catheter site this morning with no urinary output from bag. Per patient, the staff nurse attempted to reposition the catheter, but was unsuccessful. The patient states he last saw urine within the leg bag last night. Per the patient's , the patient had the catheter placed by Dr. Jodie Vazquez(urology) on 11/19/18 for urinary retention after a prolonged hospital course. The patient denies any somatic complaints at this time including emesis, fevers, chills, abdominal tenderness, chest pain, shortness of breath, diarrhea, constipation, back pain or syncopal episodes at this time. PCP: Dr. Collins Specialist: Dr. Jodie Vazquez(urology) Time/Duration: Prior to Arrival Symptom Onset: Sudden Symptom Course: Unchanged Activities at Onset: Rest Context: Other (Rehabilitation center) Past Medical History - Provider Review Nursing Documentation Reviewed: Yes - Travel History Have you recently traveled outside [place] w/in the past 3 mons?: No - Infectious Disease Hx of Infectious Diseases: None - Cardiac Hx Cardiac Disorders: Yes (CAD) Hx Hypertension: Yes - Pulmonary Hx Respiratory Disorders: Yes (dx w/lung ca 2018) - Neurological Hx Neurological Disorder: No - HEENT Hx HEENT Disorder: Yes Hx Cataracts: Yes (BILAT IOLI) Hx Glaucoma: Yes - Renal Hx Renal Cancer: Yes (left renal mass removed, stage iv) Other/Comment: RENAL TUMOR LEFT - Endocrine/Metabolic Hx Endocrine Disorders: No - Hematological/Oncological Hx Blood Disorders: Yes (pancytopenia) Hx Cancer: Yes (Kidney and lung) Hx Chemotherapy: Yes Hx Shingles: Yes Other/Comment: pt dx 2018 left kidney mass, left kidney tumor removed no chemo no radiation, then dx same year woth lung ca, radiation tx's completed 2 months ago, currently receiving chemotherapy - Integumentary Hx Dermatological Disorder: Yes (alopecia) Other/Comment: areas of dry red skin to both hands and red palms of hands x 1 wk, cause unknown, abrasion over right eyebrow redness, swelling and dry patch of skin from fall yesterday 11/14/18 from, small abrasion dry red scab to bridge of nose, skin tear left hand 5th finger, dry brown skin to neck b/l, dry brown skin to all toes, dry toenails all toes, 1cm round stage one r buttock wound zulay, wound bed red surrounded by deep red and bright red skin, redness to buttock with various shades of red dark skin between butt cheeks, deep red skin bottom b/l buttocks, red rash b/l groin and perineum along with dry brown skin, red raised rash to both hips/mid lower back, multiple dark brown moles to back, multiple small brown and red spots to abd chest, small 0.5cm dark brown closed wound rle. red areas of skin inner red foot and inner left foot, red raised rash posteriior b/l thighs - Musculoskeletal/Rheumatological Hx Musculoskeletal Disorders: Yes Hx Falls: Yes (fell 11/13/18) Hx Fractures: Yes (left femur) Hx Unsteady Gait: Yes (walker) - Gastrointestinal Hx Gastrointestinal Disorders: Yes (colon polyps, r inguinal hernia) Hx Gall Bladder Disease: Yes Other/Comment: SMALL BOWEL OBSTRUCTION/NO SURGERY NEEDED - Genitourinary/Gynecological Hx Genitourinary Disorders: Yes Hx Prostate Problems: Yes (BPH) Hx Urinary Tract Infection: Yes Other/Comment: transuretheral resection 11 yrs ago - Psychiatric Hx Psychophysiologic Disorder: No Hx Emotional Abuse: No Hx Physical Abuse: No Hx Substance Use: No - Surgical History Hx Cholecystectomy: Yes Hx Orthopedic Surgery: Yes (orif left femur fx) Other/Comment: Left leg Sx. Left kidney tumor removal - Anesthesia Hx Anesthesia: Yes Hx Anesthesia Reactions: No Hx Malignant Hyperthermia: No - Suicidal Assessment Feels Threatened In Home Enviroment: No Family/Social History - Physician Review Nursing Documentation Reviewed: Yes Family/Social History: Unknown Family HX Smoking Status: Never Smoked Hx Alcohol Use: (stopped drinking one glass wine with dinner) Hx Substance Use: No Allergies/Home Meds Allergies/Adverse Reactions: Allergies No Known Allergies Allergy (Verified 07/23/18 14:56) Home Medications: Home Meds Medication Instructions Recorded Confirmed Labetalol [Trandate] 200 mg PO Q12 10/10/17 02/05/19 Simvastatin 10 tab PO HS 07/19/17 11/14/18 Tamsulosin HCl [Flomax] 0.4 mg PO DAILY 07/19/17 11/14/18 Timolol 0.5% Ophth [Timoptic 0.5% 1 drop OU DAILY 07/19/17 11/14/18 Ophth Soln] amLODIPine [Norvasc] 5 mg PO HS 07/19/17 11/14/18 Finasteride 5 mg PO DAILY 01/31/18 11/14/18 [place]-3 Fatty Acids/Fish Oil 1 cap PO BID 01/31/18 11/14/18 [[place] 3 Fish Oil Softgel] hydrALAZINE [Apresoline] 50 mg PO TID 01/31/18 11/14/18 Zolpidem [Ambien] 10 mg PO HS PRN 11/14/18 11/14/18 Review of Systems - Physician Review All systems were reviewed & negative as marked: Yes - Review of Systems Constitutional: absent: Fevers Genitourinary Male: Urinary Output Changes, Other (dislodged suparpubic catheter) Physical Exam Vital Signs Temp Pulse Resp BP Pulse Ox 11/29/18 12:32 98.1 F 65 18 119/63 95 - Systems Exam Head: Present: Atraumatic, Normocephalic Pupils: Present: PERRL Extroacular Muscles: Present: EOMI Conjunctiva: Present: Normal Mouth: Present: Moist Mucous Membranes Neck: Present: Normal Range of Motion Respiratory/Chest: Present: Clear to Auscultation, Good Air Exchange. No: Respiratory Distress Cardiovascular: Present: Regular Rate and Rhythm, Normal S1, S2. No: Murmurs Abdomen: Present: Normal Bowel Sounds, Other (Sutured suprapubic catheter placed with congealed dried blood around site. No purulence or tenderness ). No: Tenderness, Distention Upper Extremity: Present: Normal Inspection. No: Edema Lower Extremity: Present: Normal Inspection Neurological: Present: GCS=15, Speech Normal Skin: Present: Warm, Dry, Normal Color Psychiatric: Present: Alert, Oriented x 3, Normal Insight, Normal Concentration Medical Decision Making ED Course and Treatment: 11/29/18 13:08 Impression 83M w/ h/o urinary retention presenting to the Emergency Room with a dislodged suprapubic catheter Plan --Urology Consult --Reevaluation and disposition Progress Notes 11/29/18 13:[address] Raiza Vazquez, urologist, who recommends pt be started on Flomax and discharged back to rehabilitation facility. Spoke with Dr. Collins, PMD, agrees with management to attempt to place Conn, bladder scan pt, and to notify him if pt requires observation. 11/29/18 14:[address] Yaritza Vazquez, states he will come in to replace suprapubic catheter. Requests CT Abdomen and Pelvis w/o contrast and IV fluids. - Lab Interpretations I have reviewed the lab results: Yes - RAD Interpretation Narrative RAD Interpretations (Text): CXR: LUNGS: There is an infiltrate at the left lung base that obscures the diaphragmatic border. Atelectasis in the left upper lobe. PLEURA: No significant pleural effusion identified, no pneumothorax apparent. CARDIOVASCULAR: No aortic atherosclerotic calcification present. Mild cardiomegaly no pulmonary vascular congestion. OSSEOUS STRUCTURES: No significant abnormalities. VISUALIZED UPPER ABDOMEN: Normal. OTHER FINDINGS: None. IMPRESSION: There is an infiltrate at the left lung base that obscures the diaphragmatic border. Atelectasis in the left upper lobe. Form Maker Plaster: ED Physician - EKG Interpretation EKG Interpretation (Text): 11/29/18 EKG: ED Physician ordered, reviewed, and independently interpreted the EKG. Time Interpreted: 14:28 Rate: 65 BPM Rhythm: NSR Interpretation: No ST elevations or depressions. No T wave inversions. Interpreted by ED Physician: Yes Type: 12 lead EKG Disposition/Present on Arrival - Present on Arrival History of DVT/PE: No History of Uncontrolled Diabetes: No Urinary Catheter: No History of Decub. Ulcer: No History Surgical Site Infection Following: None - Disposition Forms: [employer] (Vietnamese)
[2018-11-29] MEDS ORDERED: Sodium Chloride 0.9% 1,000 ML IV SCH ×2 (14:30→16:54)
--- NOTE | 2018-11-29 14:30 | RAD ---
Date of service: 11/29/2018 HISTORY: sob COMPARISON: 11/13/2018 FINDINGS: LUNGS: There is an infiltrate at the left lung base that obscures the diaphragmatic border. Atelectasis in the left upper lobe. PLEURA: No significant pleural effusion identified, no pneumothorax apparent. CARDIOVASCULAR: No aortic atherosclerotic calcification present. Mild cardiomegaly no pulmonary vascular congestion. OSSEOUS STRUCTURES: No significant abnormalities. VISUALIZED UPPER ABDOMEN: Normal. OTHER FINDINGS: None. IMPRESSION: There is an infiltrate at the left lung base that obscures the diaphragmatic border. Atelectasis in the left upper lobe.
[2018-11-29 15:31] LABS: BASO # 0.01 K/mm3 (0.0-2.0); BASO % 0.3 % (0.0-3.0); EOS % 1.3 % (1.5-5.0); HEMOGLOBIN 8.3 g/dL (14.0-18.0); MEAN CELL VOLUME 100.8 fl (80.0-105.0); MEAN CORPUSCULAR HEMOGLOBIN 33.2 pg (25.0-35.0); MEAN CORPUSCULAR HGB CONC 32.9 g/dl (31.0-37.0); MEAN PLATELET VOLUME 9.5 fl (7.0-11.0); MONO # 0.4 (0.1-0.6); MONO % 12.3 % (1.0-6.0); RBC 2.5 10^6/uL (3.5-6.1); RED CELL DISTRIBUTION WIDTH 16.7 % (11.5-14.5); WHITE BLOOD COUNT 3.2 10^3/uL (4.5-11.0)
[2018-11-29 15:47] LABS: ALB/GLOB RATIO 0.9 (1.1-1.8); ALBUMIN 2.7 g/dL (3.0-4.8); ALT/SGPT 21 U/L (7-56); AST/SGOT 32 U/L (17-59); BLOOD UREA NITROGEN 27 mg/dL (7-21); CALCIUM 8.3 mg/dL (8.4-10.5); GFR NON-AFRICAN AMERICAN 36
[2018-11-29 15:56] LABS: B-TYPE NATRIURETIC PEPTIDE 442 pg/mL (0-450); TROPONIN I < 0.01 ng/mL
--- NOTE | 2018-11-29 16:05 | CT ---
Date of service: 11/29/2018 PROCEDURE: CT Abdomen and Pelvis without intravenous contrast HISTORY: dislodged suprapubic catheter COMPARISON: None. TECHNIQUE: Without contrast.. Contrast dose: Radiation dose: Total exam DLP = 495.95 mGy-cm. This CT exam was performed using one or more of the following dose reduction techniques: Automated exposure control, adjustment of the mA and/or kV according to patient size, and/or use of iterative reconstruction technique. FINDINGS: LOWER THORAX: Moderate size bilateral pleural effusions LIVER: Unremarkable. No gross lesion or ductal dilatation. GALLBLADDER AND BILE DUCTS: Gallbladder removed PANCREAS: Unremarkable. No gross lesion or ductal dilatation. SPLEEN: Unremarkable. ADRENALS: Unremarkable. No mass. KIDNEYS AND URETERS: Unremarkable. No hydronephrosis. No solid mass. VASCULATURE: Unremarkable. No aortic aneurysm. Extensive aortic calcification BOWEL: Unremarkable. No obstruction. No gross mural thickening. APPENDIX: Unremarkable. Normal appendix. PERITONEUM: Mild ascites LYMPH NODES: Unremarkable. No enlarged lymph nodes. BLADDER: Mildly distended. REPRODUCTIVE: The prostate is enlarged measuring 55 x 63 mm BONES: No acute fracture. OTHER FINDINGS: None. IMPRESSION: Mildly distended bladder. No evidence of suprapubic catheter. No acute intra-abdominal findings
[2018-11-29] MEDS ORDERED: Azithromycin 500MG/NS 250ml 500 MG/250 ML BAG IVPB SCH (17:00)
[2018-11-29] MEDS: Albuterol-Ipratrop 3 mg / 0.5 (3 ml) UD IH SCH (19:41)
[2018-11-29] MEDS: cefTRIAXone 1 gm 1 GM/100 ML BAG IVPB SCH (20:32)
--- NOTE | 2018-11-29 23:07 | HP ---
DATE OF EXAM: 11/29/2018 HISTORY OF PRESENT ILLNESS: He is an 83-year-old white male who comes to the emergency room with a displaced dislodged suprapubic catheter. There was also bleeding from the catheter this morning. No urine output in the Conn bag. The staff in the ER tried to replace it, but could not do it. Also they tried a Conn catheter, but could not do it and then reached out to the urologist, Dr. Andrew Vazquez is the urologist. No pain. PAST MEDICAL HISTORY: High cholesterol, hypertension, coronary artery disease, partial nephrectomy, status post suprapubic catheter for urinary retention. He has been at a rehabilitation center. He was diagnosed with lung cancer in 2018, bilateral cataracts, bilateral glaucoma, a left renal mass was removed stage IV. He has had pancytopenia, lung cancer, chemotherapy, shingles. He had radiation within the past 2 months for the lung cancer. His left tumor was removed. Multiple areas of dry skin on both hands and mid palms, not sure why. Abrasions on the nose. Skin tear left hand fifth finger. 1 cm long stage I buttocks. He also has a history of left femur fracture, falls where he walks with walker, colon polyps, right inguinal hernia, small bowel obstruction, no surgery at that time. He has got BPH. He had a transurethral resection of the prostate 11 years ago. He had ORIF of the left femur. Left kidney tumor removed. Suprapubic catheter was then placed, but is now dislodged. FAMILY HISTORY: Unknown family history. SOCIAL HISTORY: No smoking. He stopped drinking. No substance abuse. ALLERGIES: NO KNOWN DRUG ALLERGIES. MEDICATIONS: He takes Trandate, simvastatin, Flomax, Timoptic, Norvasc, finasteride, omega-3 fatty acid, Apresoline, and Ambien. REVIEW OF SYSTEMS: No acute vision or hearing loss. No sore throat. No chest pain. No palpitations. No shortness of breath or cough. No abdominal pain. There is a suprapubic catheter, it is not working. He is not urinating. He does not feel uncomfortable. Extremities have no edema. Skin for the most part is intact. No thyroid issues that he knows of. PHYSICAL EXAMINATION VITAL SIGNS: He has a 98.1 temperature, 65 pulse, 18 respiratory rate, 119/63 blood pressure, 95% O2 sat. HEENT: Head is atraumatic, normocephalic. Pupils are equal and reactive to light. Extraocular muscles are intact. Throat is moist. NECK: Supple. HEART: Regular rate. Normal S1 and S2. LUNGS: Decreased breath sounds bilaterally. No wheezes or rhonchi. No rales. ABDOMEN: Soft, nontender. Positive bowel sounds. Suprapubic catheter is in place, but it is dislodged. It seems like it is dried up and not working. No tenderness to the abdomen to palpation. There are positive bowel sounds. NEUROLOGICAL: GCS is 15. Cranial nerves II through XII grossly intact. Speech is normal. Alert and oriented x3. SKIN: Warm and dry. No apparent rashes or ulcers. LYMPH: Thyroid midline. No palpable appreciable lymphadenopathy. LABORATORY DATA: He had multiple tests, we are tying to get Dr. Vazquez to the ER to fix the suprapubic catheter. He had a chest x-ray that showed an infiltrate in the left lung base, atelectasis in the left upper lobe. EKG showed no ST elevation or depressions. He had a CAT scan of the abdomen, mildly distended bladder, no evidence of suprapubic catheter, no acute intraabdominal findings. A 138 sodium, potassium 3.7, BUN 27, creatinine 1.8, a little renal insufficient. Sugar is 91, calcium is 8.3, total bili is 0.6, AST is 32, ALT is 21, alkaline phosphatase 85. Troponin I is less than 0.01, BNP is 442, total protein is 5.7. White count is 3.2, hemoglobin is 8.3 a bit low, he is on iron, hematocrit is 25.2, platelets of 55. IMPRESSION AND PLAN: He has got a dislodged suprapubic catheter, urinary retention. He has an infiltrate. He has anemia. We will consult with Pulmonary and Urology. He has been on Rocephin, Zithromax, DuoNeb, oxygen, IV fluids for his renal insufficiency. Hopefully he will improve. Wesly Collins DO
--- NOTE | 2018-11-29 23:14 | CARD ---
APPROVED REPORT Date of service: 11/29/2018 EKG Measurement Heart [id number] <Conclusion> Normal sinus rhythm Minimal voltage criteria for LVH, may be normal variant Borderline ECG
[2018-11-29] MEDS ORDERED: Pneumococcal 23-Valent Vaccine IM ONE (23:46)
[2018-11-29] MEDS ORDERED: Influenza Vaccine 60 mcg/0.5 mL SYR (4YR UP) IM ONE (23:46)
[2018-11-30] MEDS: Albuterol-Ipratrop 3 mg / 0.5 (3 ml) UD IH SCH (01:22)
[2018-11-30 07:01] LABS: INR 1.22; PARTIAL THROMBOPLASTIN TIME 31.7 Seconds (26.9-38.3); PROTHROMBIN TIME 13.8 SECONDS (9.4-12.5)
[2018-11-30 07:06] LABS: HEMOGLOBIN 8.4 g/dL (14.0-18.0); MEAN CELL VOLUME 100.8 fl (80.0-105.0); MEAN CORPUSCULAR HEMOGLOBIN 33.3 pg (25.0-35.0); MEAN CORPUSCULAR HGB CONC 33.1 g/dl (31.0-37.0); MEAN PLATELET VOLUME 10.1 fl (7.0-11.0); RBC 2.52 10^6/uL (3.5-6.1); RED CELL DISTRIBUTION WIDTH 17.1 % (11.5-14.5); WHITE BLOOD COUNT 3.2 10^3/uL (4.5-11.0)
[2018-11-30 07:17] LABS: ALB/GLOB RATIO 0.9 (1.1-1.8); ALBUMIN 2.7 g/dL (3.0-4.8); CALCIUM 8.3 mg/dL (8.4-10.5)
[2018-11-30] MEDS ORDERED: Multivitamin Therapeutic Tab PO SCH (10:00)
--- NOTE | 2018-11-30 12:13 | CON ---
DATE: 11/30/2018 PULMONARY CONSULTATION REASON FOR PULMONARY CONSULTATION: Rule out pneumonia. REFERRING PHYSICIAN: Wesly Collins DO HISTORY OF PRESENT ILLNESS: The patient is a chronically ill 83-year-old male, with past medical history significant for advanced renal cell cancer, status post partial nephrectomy, chronic indwelling suprapubic catheter, hypertension, coronary artery disease, who presents to [facility] for a dislodged suprapubic catheter. The patient was noted to have bleeding from the catheter site the morning of admission with no urinary output. He was thus admitted for additional evaluation. I did discuss the case with the nurse and the patient at length. There is NO history of shortness of breath at rest, dyspnea on exertion, cough, or sputum production. There is also no history of chest pain, coughing up of blood, or chest pain - brought on with deep respirations. There is no history of temperatures, chills, or infectious exposure. There is no history of night sweats. The patient does state to losing weight with decreased appetite over the past few months. No history of calf pains. No history of syncope or diaphoresis. No history of recent travel or trauma. REVIEW OF SYSTEMS: No history of nausea, vomiting, or diarrhea. No new neurologic or musculoskeletal complaints. Rest of the review of systems is negative. ALLERGIES: No known allergies. SOCIAL HISTORY: Positive for former tobacco usage. No alcohol. FAMILY HISTORY: No inheritable diseases. MEDICATIONS: Home medications include Apresoline, Norvasc, Flomax, labetalol, Feosol. PHYSICAL EXAMINATION: GENERAL: The patient appears quite comfortable this morning. He is not short of breath at rest. He is not using accessory muscles for breathing. VITAL SIGNS: Temperature is 98.1, pulse 71, respirations 16, blood pressure 117/68. Oxygen saturation on room air is 94-96%. HEENT: Normocephalic, atraumatic. No JVD. CARDIOVASCULAR: Systolic ejection murmur at the lower left sternal border. No S3 gallop. LUNGS: Decreased breath sounds at both bases. No rhonchi. No wheezing. EXTREMITIES: Mild edema. No cyanosis, no clubbing. Calves are nontender to palpation. GI: Abdomen is soft. It is mildly distended. It is nontender to palpation. Bowel sounds are positive. SKIN: No acute rashes. NEUROLOGIC: Exam limited at the present time. PERTINENT LABORATORY DATA: Chest x-ray was done and reviewed. The chest x-ray reveals small bilateral pleural effusions with a possible left basilar infiltrate. Otherwise, there is linear scarring noted in the left upper lobe. This left upper lobe abnormality seen on multiple previous films. Abdominal and pelvic CAT scan was also done. There are [id number] bilateral pleural effusions noted. There is no acute infiltrate. There is no significant lymphadenopathy. CBC: White count 3.2K, hemoglobin 8.3, hematocrit 25.2, platelets of 55,000. Complete Metabolic Profile: BUN 27, creatinine 1.8, calcium 8.3, total protein 5.7, albumin 2.7. Rest of the metabolic profiles within normal limits. IMPRESSION: 1. Dislodged suprapubic catheter. 2. Advanced renal cell cancer. 3. Bilateral pleural effusions. 4. Anemia. 5. Renal insufficiency. PLAN: Again, I did discuss the case with the night nurse at length. I have also reviewed the chart at length, and discussed the case with the patient at length. The patient presents to [facility] because of a dislodged suprapubic catheter. Again, the patient noted that there was bleeding from the catheter site with no urinary output in the bag. He then presented to [facility]. In the emergency room, the staff did document that the suprapubic catheter was dislodged. He was thus admitted for additional evaluation. The patient offers absolutely no pulmonary symptoms at this point in time. I did review the chest x-ray and CAT scan of the abdomen and pelvis. The abnormalities seen on chest x-ray are most likely due to the bilateral pleural effusions, and not true pneumonia. There is no history of temperature. There is no leukocytosis. I will also order a procalcitonin level - to help distinguish whether we are dealing with an acute pneumonia or not. Again, it seems unlikely. Genitourinary output is noted. The patient is for the OR later today. The patient does state to feeling better this morning and is clinically improved. Additional pulmonary intervention will be based on the above results, as well as the clinical status of the patient. I will discuss the above with Dr. Collins later this morning. Thank you very much for this pulmonary consultation. Mikhail MD Madi [facility] # [id number] ISAIAH
--- NOTE | 2018-11-30 14:03 | CP.PCM.APN ---
Subjective - Date & Time of Evaluation Date of Evaluation: 11/30/18 Time of Evaluation: 10:45 - Subjective Subjective: pt seen sitting up in chair with and nurse at bedside, pt in NAD pt with about 200ml urine in urinal dark rohit noted pt denies abd pain at this time per RN l;ast bladder scan was 200 prior to voiding Review of Systems - Review of Systems All systems: reviewed and no additional remarkable complaints except - Constitutional Constitutional: absent: As Per HPI, Anorexia, Chills, Daytime Sleepiness, Excessive Sweating, Fatigue, Fever, Frequent Falls, Headache, Increased Appetite, Lethargy, Malaise, Night Sweats, Snoring, Sleep Apnea, Weight Gain, Weight Loss, Weakness, Other - Genitourinary Genitourinary: Urinary Hesitance, Voiding Freq/Small Amts Objective - Vital Signs/Intake and Output Vital Signs (last 24 hours): Temp Pulse Resp BP Pulse Ox 98.2 F 67 18 133/85 93 L 11/30/18 06:00 11/30/18 06:00 11/30/18 06:00 11/30/18 06:00 11/30/18 06:00 Intake and Output: 11/30/18 11/30/18 06:59 18:59 Intake Total 0 Balance 0 - Medications Medications: Current Medications Atorvastatin Calcium (Lipitor) 10 mg PO HS [facility] Last Admin: 11/29/18 21:00 Dose: 10 mg Ferrous Sulfate (Feosol) 324 mg PO TID [facility] Last Admin: 11/29/18 20:32 Dose: 324 mg Finasteride (Proscar) 5 mg PO DAILY [facility] Sodium Chloride (Sodium Chloride 0.9%) 1,000 mls @ 40 mls/hr IV .Q24H [facility] Last Admin: 11/29/18 18:16 Dose: 40 mls/hr Ceftriaxone Sodium (Rocephin 1 Gram Ivpb) 1 gm in 100 mls @ 100 mls/hr IVPB DAILY [facility]; Protocol Last Admin: 11/29/18 20:32 Dose: 100 mls/hr Azithromycin (Zithromax 500mg In Ns) 500 mg in 250 mls @ 167 mls/hr IVPB DAILY [facility]; Protocol Last Admin: 11/29/18 18:19 Dose: 167 mls/hr Multivitamins (Thera Tab) 1 tab PO DAILY [facility] Tamsulosin HCl (Flomax) 0.4 mg PO DAILY [facility] Timolol Maleate (Timoptic 0.5% Ophth Soln) 1 drop OU DAILY [facility] Zolpidem Tartrate (Ambien) 5 mg PO HS PRN; Protocol PRN Reason: Insomnia - Labs Labs: 11/30/18 06:15 11/30/18 06:15 PT 13.8 SECONDS (9.4-12.5) H 11/30/18 06:15 INR 1.22 11/30/18 06:15 APTT 31.7 Seconds (26.9-38.3) 11/30/18 06:15 - Constitutional Appears: No Acute Distress, Chronically Ill - Eye Exam Eye Exam: Normal appearance - Neck Exam Neck Exam: Normal Inspection - Respiratory Exam Respiratory Exam: Decreased Breath Sounds, NORMAL BREATHING PATTERN - Cardiovascular Exam Cardiovascular Exam: +S1, +S2 - GI/Abdominal Exam GI & Abdominal Exam: Soft, Normal Bowel Sounds - Neurological Exam Neurological Exam: Alert, Awake - Skin Skin Exam: Dry, Intact Assessment and Plan - Assessment and Plan (Free Text) Plan: Impressions Chest X-Ray 11/29/18 13:56 IMPRESSION: There is an infiltrate at the left lung base that obscures the diaphragmatic border. Atelectasis in the left upper lobe. Abdomen/Pelvis CT 11/29/18 14:21 IMPRESSION: Mildly distended bladder. No evidence of suprapubic catheter. No acute intra-abdominal findings All Active Problems Dehydration (Acute) Diarrhea (Acute) Glaucoma (Acute) Lung cancer (Acute) Mucositis (Acute) Neutropenic fever (Acute) Pancytopenia (Acute) Prophylactic measure (Acute) Sepsis (Acute) Simple renal cyst (Acute) Small bowel obstruction (Acute) Status post nephrectomy (Acute) Urinary tract infection (Acute) Alopecia (Chronic) BPH (benign prostatic hyperplasia) (Chronic) CAD (coronary artery disease) (Chronic) HLD (hyperlipidemia) (Chronic) HTN (hypertension) (Chronic) 83 yr old male with pmh sig for hld, htn, cad, renal cell ca s/p partial nephrectomy s/p suprapubic catheter placement who presented to the ED with a dislodged suprapubic catheter. pt was admitted and consultation was obtained for further mgmt. pt on flomax regimen an Iv fluids will continue to monitor on strict i/o and for any additional retention Eloisa Belinfanti BPCI/TIC - BPCIA/TIC Educated pt/family on BPCIA/CIR/Med to Bed Programs: N/A Flyers given, including CMS Beneficiary letter: N/A Pt/family verbalized understanding & agreed to program: N/A
[2018-11-30] MEDS: cefTRIAXone 1 gm 1 GM/100 ML BAG IVPB SCH (15:00)
[2018-11-30 16:30] VITALS: BP 120/69; PULSE 61; RESP 16; TEMP 97.8; O2SAT 97
--- NOTE | 2018-11-30 21:29 | DS ---
HOSPITAL COURSE: He is resting comfortably in bed. He is feeling better. He actually urinated. His suprapubic catheter has not been working, I believe there is a procedure today with Dr. Vazquez hopefully to fix the suprapubic catheter, although he did urinate regularly. He is on Ambien, Feosol, Flomax, Lipitor, Proscar and Rocephin, IV fluids, Thera-Tabs, Timoptic and azithromycin. PHYSICAL EXAMINATION: VITAL SIGNS: He has a 98.2 temperature, 67 pulse, 133/85 blood pressure, 18 respiratory rate, and 90% sat on room air. HEENT: Head is atraumatic and normocephalic. HEART: Regular rate. LUNGS: Decreased breath sounds. ABDOMEN: Soft and nontender. Positive bowel sounds. EXTREMITIES: No edema. LABORATORY DATA: Sodium 139, potassium 3.9, BUN 24, creatinine 1.9, GFR is 34, sugar is 83, and calcium 8.3. Total bili is 0.4, AST is 30, ALT is 21, alk phos is 85 and total protein is 5.7. White count 3.2, hemoglobin 8.4, hematocrit 25.4 and platelets 61. Awaiting for Urology to come in and make a decision on the procedure. His bladder was distended. I am hoping to discharge him back to the [facility] today, we will get this procedure done. He is on his medications and I will him discharged later today if everything goes well. He had urinary retention, suprapubic catheter dislodged. Wesly Collins DO
== END 2018-11-30 21:20 | disposition home or self-care (01) ==
LOC: ED 12:27 → ERH 16:15 → 5RSO 17:59
PROVIDERS: ADMIT Family Medicine; ATTEND Family Medicine
DX: T83.021A Displacement of indwelling urethral catheter, initial encounter (principal); T83.83XA Hemorrhage due to genitourinary prosthetic devices, implants and grafts, initial encounter; N40.1 Benign prostatic hyperplasia with lower urinary tract symptoms; R33.8 Other retention of urine; C64.9 Malignant neoplasm of unspecified kidney, except renal pelvis; D64.9 Anemia, unspecified; E78.00 Pure hypercholesterolemia, unspecified; E78.5 Hyperlipidemia, unspecified; H40.9 Unspecified glaucoma; I10 Essential (primary) hypertension; I25.10 Atherosclerotic heart disease of native coronary artery without angina pectoris; J90 Pleural effusion, not elsewhere classified; J98.11 Atelectasis; N28.9 Disorder of kidney and ureter, unspecified; Z85.118 Personal history of other malignant neoplasm of bronchus and lung; Z86.010 Personal history of colon polyps; Z87.440 Personal history of urinary (tract) infections; Z87.891 Personal history of nicotine dependence; Z90.49 Acquired absence of other specified parts of digestive tract; Z90.5 Acquired absence of kidney; Z98.42 Cataract extraction status, left eye; Z98.41 Cataract extraction status, right eye; Z96.1 Presence of intraocular lens; Y84.6 Urinary catheterization as the cause of abnormal reaction of the patient, or of later complication, without mention of misadventure at the time of the procedure
CPT/HCPCS: 36415; 71045; 74176; 80053; 83880; 84145; 84484; 85025; 85027; 85610; 85730; 86850; 86900; 93005; 94640; 99285; G0378; J0456; J0696; J7030

== ENCOUNTER 2019-03-03 08:54 | Outpatient (CLI) | payer MEDICARE | END 2019-03-03 08:55 | disposition home or self-care (01) | LOC: RAD 08:54 ==